=== PATIENT | female | born 1955 | race Caucasian/White ===

== ENCOUNTER 2019-04-25 09:54 | Outpatient (CLI) | payer MEDICARE, MEDICAID, SELFPAY ==
--- NOTE | 2019-04-25 10:00 | MR_ITS ---
WS: [id number] MRI CERVICAL SPINE NONCONTRAST TECHNIQUE: Sagittal T1, T2 and STIR imaging. Axial T2, gradient, and fiesta imaging. CLINICAL INFORMATION: CERVICAL DISC DISORDER WITH MYELOPATHY OF MID CERVICAL REGIO COMPARISON: CT cervical and MRI August 09, 2018 FINDINGS: Images moderately degraded due to motion artifact. Straightening of the normal cervical lordosis. Slight anterolisthesis C4 on C5 measuring 3 mm stable since the recent CT but progressed since the prior MRI August 09, 2018. Disc osteophyte complexes at C 4-C5 C5-C6 and C6-C7 with moderate to severe central canal stenosis. Impingement on the cervical cord at C4-C5 and C5-C6 with impingement and flattening worse at C4-C5. Suggestion of small amount T2 sig nal abnormality in the cervical cord. C2-C3: Osteophytic ridging. Moderate left and mild right bony foraminal narrowing. Spinal canal is pa tent. C3-C4: Mild disc bulging with osteophytic ridging. Severe left and mild right bony foraminal narrowin g. Advanced left facet arthropathy. Spinal canal is patent. C4-C5: Grade 1 anterolisthesis measuring 3 mm. Disc osteophyte complex with severe central canal sten osis. This appears progressed since the prior MRI. Severe bilateral bony foraminal narrowing. This is worse on the left. C5-C6: Disc osteophyte complex with moderate to severe central canal stenosis. Moderate to severe tarah ateral bony foraminal narrowing worse in the left. C6-C7: Disc osteophyte complex with moderate central canal stenosis. Moderate bilateral bony foramina l narrowing. C7-T1: Mild disc bulging. Mild bilateral bony foraminal narrowing. Spinal canal is patent. Small disc protrusions in the upper thoracic spine. Upper thoracic cord appears normal. Visualized brain stem structures: Normal. Prevertebral soft tissues: Normal. MR/MR cervical spin wo con* [id number] IMPRESSION: 1. Images moderately degraded due to motion artifact. 2. Moderate to severe central canal stenosis C4-C5 and C5-C6 with progressive disc desiccation at C4-C5 and anterolisthesis measuring 3 mm. Central canal bisi nosis appears progressed at C4-C5 since the recent myelogram October 07, 2018 3. Central disc osteophyte protrusion C6-C7 with moderate central canal stenos is. 4. Multilevel moderate to severe bony foraminal narrowing at C4-C5 C5-C6 and C 6-C7. 5. Suggestion of a tiny amount of signal abnormality in the cervical cord at C 4-C5.
== END 2019-04-25 09:55 | disposition home or self-care (01) ==
LOC: RADWPI 09:58
PROVIDERS: Family Provider Family Medicine; Visit Provider Licensed Practical Nurse
DX: M50.020 Cervical disc disorder with myelopathy, mid-cervical region, unspecified level (principal); M48.02 Spinal stenosis, cervical region; M50.223 Other cervical disc displacement at C6-C7 level
CPT/HCPCS: 72141

== ENCOUNTER 2019-06-26 12:12 | Inpatient (IN) | payer MEDICARE, MEDICAID, SELFPAY ==
[2019-06-23 13:07] VITALS: BMI 26.9
--- NOTE | 2019-06-23 13:31 | ANES.PREANE2 ---
Pre-Anesthetic Assessment Pre-Anesthetic Assessment: Height/Weight: Height 1.57 m Weight 66.678 kg Preop Diagnosis: Intervertebral disc disorder with myelopathy, mid cervical region Proposed Procedure: Operation Date: 06/26/19 07:00 Proposed Procedures p Anterior Cervical Discectomy&Fusion 66687 M50.020(Not Applicable) - Richard Llanos MD s Poss Corpectomy(Not Applicable) - Richard Llanos MD Familial anesthetic complications: No trouble Social: Social History: Tobacco Packs per day: 0.5 ppd Exam: Pre-Anes Outpt Exam: alert, oriented x 3, clear to auscultation bilaterally and regular rate & rhythm Airway: Cervical ROM: WNL MP: 1 Additional comments: chipped, missing poor dentition Pulmonary: Pulmonary: COPD CV/HEM: CV/HEM: HTN : : None reported Hepatic: Hepatic: None reported GI: GI: GERD Metabolic: Metabolic: DM Musc/skel: Comments: contracted/poor movemetn especially on Right side arm due neck and back - herniated discs Neuropsych: Neuropsych: CVA (X2 16 year ago) Anesthetic Plan: ASA status: 3 Anesthesia: General Risk of > 500 ml blood loss (7ml/kg in children): No PFSH Anesthesia PFSH: Medical History (Updated 06/13/19 @ 13:22 by Richard Llanos MD) Abnormal nuclear stress test Cervical disc disorder with myelopathy of mid-cervical region CHF (congestive heart failure) COPD (chronic obstructive pulmonary disease) CVA (cerebral vascular accident) Edema, peripheral GERD (gastroesophageal reflux disease) History of DVT (deep vein thrombosis) Hypertension Left renal mass Osteoarthritis Spinal stenosis Surgical History (Updated 06/13/19 @ 13:22 by Richard Llanos MD) History of cataract surgery S/P knee replacement Status post cervical spinal fusion Social History (Updated 06/13/19 @ 12:49 by Sari Arroyo LPN) Smoking and tobacco status: current every day smoker Alcohol intake: never Lives independently: No Marital status: / Current occupational status: disabled History of recent travel: No Data Anesthesia Cardiac Studies: No Data to Display
[2019-06-26] VITALS (18 sets, daily range): BP systolic 144–174; BP diastolic 71–92; PULSE 82–109; RESP 16–22; TEMP 36.3–36.9; O2SAT 90–98
[2019-06-26 06:38] LABS: Glucose Point of Care 97 mg/dL (70-110)
--- NOTE | 2019-06-26 06:45 | P.ANESUD_ITS ---
Pre-Anesthetic Update Pre-Anesthetic Assessment: Date of Surgery/Procedure: 06/26/19 Preop Claudia gnosis: Intervertebral disc disorder with myelopathy, mid cervical region Proposed Procedure: Operation Date: 06/26/19 07:00 Proposed Procedures p Anterior Cervical Discectomy&Fusion 98178 M50.020(Not Applicable) - Richard Llanos MD s Poss Corpectomy(Not Applicable) - Richard Llanos MD Any changes to Pre-Anesthetic Assessment?: No Last Intake: Intake Last Liquid Date 06/25/19 Last Liquid Time 21:00 Last Solid Date 06/25/19 Last Solid Time 21:00 Labs Last 48hrs: Laboratory Results - last 48 hr 06/26/19 06:35 POC Glucose 97 Vitals: Temperature 97.4 F L 06/26/19 06:18 Pulse Rate 82 06/26/19 06:18 Pulse Rhythm 06/26/19 06:21 Pulse Strength 3+ Normal 06/26/19 06:21 Respiratory Rate 18 06/26/19 06:18 Blood Pressure 166/80 06/26/19 06:18 Blood Pressure Bridget n 108 06/26/19 06:18 Pulse Oximetry 98 06/26/19 06:18 Oxygen Delivery Me thod 06/26/19 06:21 Exam: Pre-Anes Outpt Exam: alert, oriented x 3, clear to auscultation bilaterally and regular rate & rhythm Other Pertinent Information: Other Pertinent Information: No medications this morning, ran out of her oxybutynin on wednesday. States she is having increased pain. Cardiac Studies: No Data to Display
--- NOTE | 2019-06-26 06:53 | W.PM.OPSUD ---
Surgery/Procedure H&P Update DATE OF PROCEDURE: June 26, 2019 DATE H&P PERFORMED: 06/06/19 H&P UPDATE INFORMATION: I have reviewed H&P completed within last 30 days and H&P is in [facility] EMR on date indicated PREOP DIAGNOSIS: Intervertebral disc disorder with myelopathy, mid cervical region PRIMARY INDICATION FOR PROCEDURE: Pain, cervical myelopathy PLANNED PROCEDURE: Operation Date: 06/26/19 07:00 Proposed Procedures C4-C7 Anterior Cervical Discectomy/Fusion/fixation, possible corpectomy 22936 M50.020(Not Applicable) - Richard Llanos MD
--- NOTE | 2019-06-26 07:04 | SUR.PREOP ---
2544 call to PT and spoke with Myke and stated that no Physical Therapist here yet to fit pt for kristen Jenn blackwood and message given to nurse MURIEL Erickson
--- NOTE | 2019-06-26 07:07 | PM.OP2 ---
 Brief Operative Note: Date of procedure: 06/26/19 Pre-op diagnosis: Intervertebral disc disorder with myelopathy, midcervical Post-op diagnosis: same (with collapse of vertebra and instability of joint) Procedure Done: C5, C6 corpectomy;C4-C7 anterior fusion/fixation Surgeon: Richard Llanos Estimated blood loss (mL): 25 Complications: none Post-op Plan: PACU, then surgical golden Condition: stable Disposition: PACU Coding Level of Care Code Acute Travel Accommodation Inspector for Riley Romero
--- NOTE | 2019-06-26 07:24 | XR_ITS ---
WS: [id number] INTRAOPERATIVE LATERAL CERVICAL SPINE HISTORY: OR PIC COMPARISON: 04/07/2019 Lateral radiograph obtained in the OR with a metallic marker indicating the anterior C4-5 disc level. Patient is intubated. XR/XR cervical spine 1ort [id number] IMPRESSION: Intraoperative planning marker at anterior C4-5 disc level.
--- NOTE | 2019-06-26 08:12 | XR_ITS ---
WS: [id number] INTRAOPERATIVE LATERAL CERVICAL SPINE HISTORY: SURGERY COMPARISON: None available. Lateral radiograph obtained in the OR with a metallic marker indicating the C5-6 disc level. Soft tis nelli spacers are now present. The anterolisthesis by 4 mm. XR/XR cervical spine [facility] [id number] IMPRESSION: Intraoperative planning marker at anterior C5-6 disc level.
[2019-06-26] MEDS: sodium chloride 0.9% 1,000 ML 30 ML IV (09:36)
--- NOTE | 2019-06-26 10:52 | XRR_ITS ---
PROCEDURE INFORMATION: Exam: XR Spine, 1 view; Cervical Exam date and time: 06/26/2019 11:24 AM Age: 64 years old Clinical indication: Condition or disease; Condition/disease: Localization in surgery TECHNIQUE: Imaging protocol: XR of the spine, 1 view. Exam focused on the cervical spine. COMPARISON: CR XR cervical spine [place] [id number] 06/26/2019 8:09 AM FINDINGS: Vertebrae: Interval C5 and C6 vertebral body replacement (appropriately positioned), with C4-C5 and C6-C7 disc grafts (appropriately positioned), and correction of prior C4-C5 anterolisthesis. Anterior hardware placement with C4-C7 metallic plate and C4 and C7 metallic screws. Anterior surgical retractors and in tracheal tube noted. Soft tissues: Prevertebral soft tissue swelling, stable. XR/XR cervical spine [place] [id number] IMPRESSION: Intraoperative radiograph as described.
--- NOTE | 2019-06-26 11:51 | XRR_ITS ---
PROCEDURE INFORMATION: Exam: XR Cervical Spine, 2 Views Exam date and time: 06/26/2019 12:28 PM Age: 64 years old Clinical indication: Condition or disease; Fusion; Cervical region; Prior surgery; Surgery date: Post-operative (0-2 days); Additional info: Ap/lat post op fusion TECHNIQUE: Imaging protocol: XR of the cervical spine, frontal and lateral views. COMPARISON: CR XR cervical spine [place] [id number] 06/26/2019 11:13 AM FINDINGS: Vertebrae: C5 and C6 vertebral body replacement, disc space grafts, and and C4-C7 ACDF plate and screws are stable in position. Vasculature: Bilateral carotid atherosclerotic calcifications. Soft tissues: Decreased prevertebral soft tissue swelling. XR/XR cervical spine 3V* [id number] IMPRESSION: Postoperative changes as above.
--- NOTE | 2019-06-26 12:53 | PM.PACU ---
PACU note Post-Anesthesia Exam: somnolent, arousable and vital signs stable Disposition: admitted
[2019-06-26] MEDS: sodium chlor 0.9% + KCl 20 mEq 20 MEQ/1,000 ML BAG 75 MEQ IV (13:52)
[2019-06-26] MEDS: ketorolac 30 mg/mL INJ 15 MG IVP ×2 (13:55→17:48)
[2019-06-26] MEDS: HYDROcodone-acetaminophen 5-325 mg Tablet PO ×2 (15:19→20:59)
[2019-06-26 17:04] LABS: Glucose Point of Care 140 mg/dL (70-110)
[2019-06-26 17:14] LABS: Glucose Point of Care 164 mg/dL (70-110)
[2019-06-26] MEDS: oxyCODONE 5 mg IR Tab/Cap 10 MG PO ×2 (17:24→21:59)
[2019-06-26] MEDS: duloxetine 60 mg Capsule PO (17:27)
[2019-06-26] MEDS: docusate sodium 100 mg Capsule PO (17:27)
--- NOTE | 2019-06-26 17:37 | P.PN_ITS ---
Subjective Subjective: Interval history: A little better. No new complaints. Vitals/I&O/Wt Last Vital Signs Temp 98.3 F 06/26/19 15:45 Pulse 92 06/26/19 15:45 Resp 18 06/26/19 15:45 BP 159/81 06/26/19 15:45 Pulse Ox 95 06/26/19 15:45 06/26/19 06/26/19 06/26/19 06:59 14:59 22:59 Intake Total 1600 / 1600 Output Total 125 / 125 Balance 1475 / 1475 Physical Exam Const: COMMON NORMALS: no apparent distress GENERAL APPEARANCE: cooperative HENMT: COMMON NORMALS: hearing grossly not normal bilaterally (hard of hearing) Eye: COMMON NORMALS: conjunctivae normal ALIGNMENT: Yes alignment normal CONJUNCTIVA: Yes conjunctivae normal Neck/C-Spine: COMMON NORMALS: supple GENERAL: Yes trachea midline CERVICAL SPINE: Yes collar present Resp: COMMON NORMALS: normal respiratory effort EFFORT & INSPECTION: Yes able to speak in complete sentences, No tachypneic and No stridor Neuro: SPEECH: speech normal MOTOR EXAM: No strength 5/5 throughout (chronic quadraparesis and spasticity) Psych: COMMON NORMALS: speech normal ATTITUDE: Yes engaged ACTIVITY/MOTOR BEHAVIOR: Yes appropriate eye contact SPEECH: Yes normal speech Skin: WOUNDS: Yes surgical site (Left anterolateral neck surgical site dressing with scant serosanguineous drainage. Dressing changed at bedside.) Urinary Catheter Management^: F: Cath Placed During This Visit: yes, but has since been removed by the nurse Urinary Catheter Date of Insertion: 06/26/19 Urinary Catheter Time of Insertion: 07:25 Date Urinary Catheter Removed: 06/26/19 Time Urinary Catheter Discontinued: 11:50 Data Other Xray: I personally reviewed and interpreted this imaging study as follows: (Cervical spine x-rays: Postoperative changes of recent C5/C6 corpectomy with C4-C7 anterior fusion/fixation. No noted complications.) Radiologist's impression: FINDINGS: Vertebrae: C5 and C6 vertebral body replacement, disc space grafts, and and C4-C7 ACDF plate and screws are stable in position. Vasculature: Bilateral carotid atherosclerotic calcifications. Soft tissues: Decreased prevertebral soft tissue swelling. A&P Assessment and plan (1) Cervical disc disorder with myelopathy of mid-cervical region: Patient is doing well after C5/C6 corpectomy with C4-C7 anterior fusion/fixation performed earlier today. She remains with chronic quadriparesis/spasticity, but is reporting some improvement in motor function/dexterity since surgery. Plan completion of perioperative intravenous antibiotic doses, and physical therapy postoperative spine protocol. Up with assist only. Fall precautions. Anticipate discharge home tomorrow. Status: Acute Code(s): M50.020 - Cervical disc disorder with myelopathy, mid-cervical region, unspecified level (2) Status post cervical spinal fusion: Status: Acute Code(s): Z98.1 - Arthrodesis status (3) Collapse of vertebra: Status: Acute Code(s): M48.50XA - Collapsed vertebra, not elsewhere classified, site unspecified, initial encounter for fracture (4) Instability of joint: Status: Acute Code(s): M25.30 - Other instability, unspecified joint Attestations Medical Necessity Statement*: Patient is appropriate for in-hospital manag ement following multilevel anterior cervical fusion and fixation. Coding Level of Care Code Acute Buyers' Agent for [facility] Fwd Exam Comprehensive Diagnoses Cervical disc disorder with myelopathy of mid-cervical region M50.020 Status post cervical spinal fusion Z98.1 Collapse of vertebra M48.50XA Instability of joint M25.30
[2019-06-26] MEDS: baclofen 10 mg Tablet PO (21:00)
--- NOTE | 2019-06-26 21:11 | P.OP_ITS ---
Operative Report Date of procedure: June 26, 2019 Pre-op Diagnosis: Intervertebral disc disorder with myelopathy, mid cervical region Post-op diagnosis: same (with collapse of vertebra and instability of joint) Post-op Diagnosis: Procedure Done: 1. C5 Corpectomy. 2. C6 Corpectomy. 3. C4-C7 anterior cervical plate and screw fixation. 3. C4-C7 placement of intervertebral prosthetic device. 4. C4-C7 anterior cervical fusion utilizing morselized autograft obtained from the corpectomy/osteophytectomy portions of the procedure. Implants: Synthes Vectra plate/screws. Bengal interbody fusion cage. Specimens removed/disposition: C4-C5, C5-C6, C6-C7 disc Surgeon: Richard Llanos Anesthesia: General Estimated blood loss (mL): 25 IV fluids (mL): 1,500 Urine output (mL): 100 Complications: None Condition: stable Disposition: PACU Brief History: The patient is a 64-year-old female with symptomatic, radiographically confirmed cervical disc/joint disease and associated neural impingement. Imaging studies demonstrated dominant abnormalities at C4-C7. She had clinical evidence of progressive cervical myelopathy. Conservative management did not provide lasting symptom relief. After review of the diagnostic and treatment options with the risks/potential benefits/rationale for each, the patient requested to proceed with surgical intervention. Procedure: After routine preoperative evaluation and informed consent were obtained, the patient was taken to the Operating Room and placed under general endotracheal anesthesia. She was positioned supine and fit in the [place] tongs for the application of in-line cervical traction. The anterolateral neck on the left was prepared with hair clippers. A proposed transverse skin incision was marked with a sterile skin marker, utilizing intraoperative radiography and regional anatomy for localization. The area was scrubbed, prepped, and draped with sterile towels and drapes. [place] surgical barrier was applied. The proposed incision site was infiltrated with 1% Xylocaine with Epinephrine. A skin incision was made and carried down into the subcutaneous tissues. The platysma was identified and divided in the direction of its fibers. A plane was dissected just medial to the carotid sheath and lateral to the midline esophagus and trachea. Prevertebral soft tissues were bluntly dissected free of the anterior margin of the cervical spine. Longus coli muscles were freed from their medial attachments. Deep self-retaining retractors were placed. Intraoperative radiography verified the desired surgical levels. The C4-C5, C5-C 6, and C6-C7 interspaces were sequentially incised with a #11 blade. Discectomies were accomplished utilizing various curettes and pituitary rongeurs. Anterior marginal osteophytes were resected with the [place] and [place] rongeurs. Cartilaginous end plates were stripped free with curettes. Posterior marginal osteophytes were resected with thin foot plate Kerrison rongeurs. The medial aspects of the neural foramina were enlarged in a similar manner. Posterior longitudinal ligament was divided and resected as necessary to further the decompression. Due to extensive bony overgrowth of the disc space and marginal osteophyte contribution to neural impingement, the [place] Rodney high- speed drill with myron reg was utilized to complete the osteophytectomy portions of the procedure and for endplate preparation. Residual encroachment posterior to the vertebral bodies and the limited height of the residual vertebral bodies after osteophyte resection prompted conversion to corpectomies at C5 and C6. Corpectomies were completed with the [place] Rodney high speed drill and various rongeurs. Once the decompression was felt to be adequate, the corpectomy defect was sized. A 30 mm lordotic Bengal Cage was chosen. The Cage was packed with morselized autograft obtained from the corpectomy/osteophytectomy portions of the procedure. The Cage was placed within the corpectomy defect while in-line cervical traction was applied via the [place] tongs. The mallet and impaction tools were utilized, and positioning was evaluated with intraoperative radiography. Once the Cage was felt to be in good position, a Synthes Vectra plate of the desired size was chosen. The plate was secured to the C4 and C7 vertebral bodies with bilateral 4.5 mm x 14 mm self-drilling screws. Final screw tightening was performed, and the locking mechanisms within the plate were noted to engage the screws at each site. The construct was inspected and felt to be in good position and secure. The wound was copiously irrigated with sterile saline and antibiotic irrigation. Hemostasis was ensured with the bipolar electrocautery. Wound closure was performed in multiple layers with 2-0 Vicryl Plus simple interrupted closure of the platysma and deep dermis as separate layers. Final skin closure was performed with 4-0 Vicryl Plus in a running subcuticular pattern. Steri-Strips were applied and a sterile dressing was placed. The patient was released from the [facility] and fit in a [place] collar. She was transferred onto the Recovery Room cart in the supine position. She was extubated without in cident. The patient tolerated the procedure well. All sponge, needle, and instrument counts were correct at the completion of the procedure.
[2019-06-26] MEDS: ondansetron 2 mg/ML SDV 2 mL 4 MG IVP (21:23)
[2019-06-26 21:33] LABS: Glucose Point of Care 171 mg/dL (70-110)
--- NOTE | 2019-06-26 22:06 | PC.NURSE ---
2135: Please see physician notification. Patient is not able to get comfortable at all. Is having a lot of anxiety. No pain medications seem to help lower back pain. She states her neck feels fine. All neuro vascular checks have been WNL. Dr. Luque states lower back pain is chronic for her. Patient has been educated on all pain medications being given and has been educated on non-pharmacologic therapies as well.
[2019-06-27] VITALS (7 sets, daily range): BP systolic 129–184; BP diastolic 67–92; PULSE 89–106; RESP 18–20; TEMP 36.5–36.9; O2SAT 90–93
[2019-06-27] MEDS: ketorolac 30 mg/mL INJ 15 MG IVP ×2 (00:05→05:24)
[2019-06-27] MEDS: oxyCODONE 5 mg IR Tab/Cap PO (01:45)
--- NOTE | 2019-06-27 02:26 | PC.NURSE ---
Bladder Scan: Showed >500
--- NOTE | 2019-06-27 02:59 | PC.NURSE ---
Upon reassessment of pain patient is resting with eyes closed and no outward s/s of pain at this time.
--- NOTE | 2019-06-27 03:35 | PC.NURSE ---
Patient has had change of positions all shift. 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 This nurse, aides and bilingual recruiter have changed positions multiple times in which patient is not comfortable for long. Patient keeps stating that everyone is mad at her and we let her know this is not the case we just want her comfortable and we cannot always be in her room to change positions when with other patients. Patient has had multiple pain medications. Every avenue has been tried in attempt to relieve pain and make patient more comfortable with non-pharmacologic and pharmacologic measures and education. Education needs reinforced.
[2019-06-27] MEDS: sodium chlor 0.9% + KCl 20 mEq 20 MEQ/1,000 ML BAG 75 MEQ IV (04:11)
[2019-06-27 06:55] LABS: Glucose Point of Care 125 mg/dL (70-110)
[2019-06-27] MEDS: lidocaine 5% Patch 1 PATCH TOPICAL (08:26)
[2019-06-27] MEDS: oxybutynin 5 mg Tablet 10 MG PO (08:27)
[2019-06-27] MEDS: montelukast sodium 10 mg Tablet PO (08:27)
[2019-06-27] MEDS: lisinopril 20 mg Tablet PO (08:28)
[2019-06-27] MEDS: pantoprazole DR 40 mg Tablet PO (08:28)
[2019-06-27] MEDS: docusate sodium 100 mg Capsule PO (08:28)
[2019-06-27] MEDS: duloxetine 60 mg Capsule PO (08:29)
[2019-06-27] MEDS: amlodipine 5 mg Tablet PO (08:29)
--- NOTE | 2019-06-27 08:41 | PM.DCS ---
Discharge Providers Date of Admission: 06/26/19 12:32 Date of Discharge: June 27, 2019 Attending Provider at Admission: Richard Llanos MD Attending Provider at Discharge: Richard Llanos MD Primary Care Provider: Sari Blankenship DO Diagnoses at Discharge Discharge Diagnosis (1) Cervical disc disorder with myelopathy of mid-cervical region: Status: Acute (2) Collapse of vertebra: Status: Acute (3) Instability of joint: Status: Acute (4) Status post cervical spinal fusion: Status: Acute Reason for Visit Reason for Visit: Reason For Visit: Cervical disc disorder w myelopathy of Mid-Cervica Brief History: The patient is a 64-year-old female with symptomatic, radiographically confirmed cervical disc/joint disease and associated neural impingement. Imaging studies demonstrated dominant abnormalities at C4-C7. She had clinical evidence of progressive cervical myelopathy. Conservative management did not provide lasting symptom relief. After review of the diagnostic and treatment options with the risks/potential benefits/rationale for each, the patient requested to proceed with surgical intervention. Hospital Course Hospital Course: Patient underwent C5/C6 corpectomy with C4-C7 anterior fusion/fixation on 06/26/2019. She tolerated the procedure well. She completed perioperative intravenous antibiotics, and the physical therapy postoperative spine protocol. She noted improvement in preoperative symptoms following surgery. She was voiding and tolerating a diabetic diet prior to discharge home on postoperative day#1. Physical Exam Urinary Catheter Management^: F: Cath Placed During This Visit: yes, but has since been removed by the nurse Urinary Catheter Date of Insertion: 06/26/19 Urinary Catheter Time of Insertion: 07:25 Date Urinary Catheter Removed: 06/26/19 Time Urinary Catheter Discontinued: 11:50 Discharge Data Data Completed and Pending: Completed Studies During Hospitalization Category Date Time Status XR cervical spine 1 view portable [ XR cervical spine Exams 06/26/19 08:12 Completed 1Vport 04094] Rou herve XR cervical spine 1 view portable [ XR cervical spine Exams 06/26/19 10:52 Completed 1Vport 32862] Rou herve XR cervical spine 1Vport 26639 Rout ine Exams 06/26/19 07:24 Completed XR cervical spine 3V* [id number] Routine Exams 06/26/19 11:51 Completed Pathology: Surgic al [PTH] Routine Pth 06/26/19 11:58 Completed Imaging^: Other Xray: Radiologist's impression: FINDINGS: Vertebrae: C5 and C6 vertebral body replacement, disc space grafts, and and C4-C7 ACDF plate and screws are stable in position. Vasculature: Bilateral carotid atherosclerotic calcifications. Soft tissues: Decreased prevertebral soft tissue swelling. Procedures Performed: C5/C6 corpectomy. Placement of intervertebral prosthetic device (Bengal 30 mm lordotic Cage). C4-C7 anterior plate-screw fixation (Synthes Vectra system). C4-C7 anterior fusion utilizing morselized autograft obtained from the osteophytectomy/corpectomy portions of the procedure. Intravenous antibiotics. Physical therapy. Vitals: Last Vital Signs Temp 97.7 F 06/27/19 12:15 Pulse 97 06/27/19 12:15 Resp 20 H 06/27/19 12:15 BP 129/67 06/27/19 12:15 Pulse Ox 93 06/27/19 12:15 Discharge Plan Discharge Patient Disposition: Home, Self-Care Condition: Stable Prescriptions: New Percocet 7.5-325 mg tablet 1 - 2 tab PO Q4H MDD 6 tabs PRN (Reason: pain) Qty: 40 RF: 0 Continued azelastine 137 mcg (0.1 %) aerosol,spray 1 spray INTRANASAL BID RF: 0 lidocaine [Lidoderm] 5 % adhesive patch,medicated 1 patch TOPICAL DAILY RF: 0 levalbuterol tartrate 45 mcg/actuation HFA aerosol inhaler 2 inh INHALATION Q6H RF: 0 oxybutynin chloride 10 mg tablet extended release 24hr 10 mg PO DAILY RF: 0 Trulicity 1.5 mg/0.5 mL pen injector 1 mg SUBCUT .weekly RF: 0 esomeprazole magnesium [Nexium] 40 mg capsule,delayed release(DR/EC) 40 mg PO DAILY RF: 0 montelukast 10 mg tablet 10 mg PO DAILY RF: 0 linagliptin 5 mg tablet 5 mg PO DAILY RF: 0 baclofen 10 mg tablet 10 mg PO TID PRN (Reason: Pain) RF: 0 albuterol sulfate 90 mcg/actuation HFA aerosol inhaler 2 puff INHALATION Q6H RF: 0 ondansetron HCl 4 mg tablet 4 mg PO Q8H RF: 0 amlodipine-benazepril 5-20 mg capsule 1 cap PO DAILY RF: 0 duloxetine [Cymbalta] 60 mg Capsule,Delayed Release(Dr/Ec) 60 mg PO BID RF: 0 Levemir U-100 Insulin 100 unit/mL Solution 40 unit SUBCUT DAILY RF: 0 Held oxycodone 10 mg tablet 10 mg PO Q8H RF: 0 Hold Instructions: Resume on 07/02/19. Hold until finished with Rx provided from hospital. Discharge Orders: Discharge Order (Routine); Ordered 06/27/19 Ordered By: Richard Llanos Other Ambulatory Orders: XR cervical spine 3V* [id number] (Routine) Timeframe: 2 Weeks Facility: [facility] - Location: Radiology [facility] Ordered By: Richard Llanos Referrals: [facility] [Outside] Richard Llanos MD [Physician] - 07/13/19 10:00 am (AP/lateral c-spine x-rays prior to visit.GET EXRAY AT [facility] BEFORE DR APPOINTMENT THAT MORNING) Discharge Diet: Diabetic Discharge Activity: Limit activity as instructed and As per PT/OT instructions Patient Instructions: Oxycodone/Acetaminophen (By mouth), Anterior Posterior Spinal Fusion (DC), Cervical Fracture (DC), Degenerative Disc Disease (DC) Activity Restrictions/Additional Instructions: Activity -Cervical fusion: Wear cervical collar 24 hours a day. Change as necessary for showering, shaving, or if it becomes soiled. -No lifting or reaching overhead. - No driving until office followup visit - No lifting/pushing/pulling over 10 pounds - Avoid twisting or bending - Walking is encouraged - Home exercise per physical therapist - You may engage in sexual intercourse at any time as long as it is comfortable for you - Check with your doctor before returning to work. Notify your doctor if you develop: - temperature of 101.5 degrees F. or higher - redness or swelling of the incision - Foul drainage - increasing pain - increasing numbness or tingling in the arms or legs - New or increasing problems with vision, balance, memory, speaking, nausea or vomiting Hygiene: - Showering is okay - No tub baths or soaking Other: Remove outer bandage 3 days after surgery. If you have paper strips, leave in place until they fall off on their own. If you have stitches, keep your incision dry until the stitches are removed. Your doctor's office is available to answer any questions from 7 AM to 5:00 PM, Wednesday through at [phone]. After hours, go to the emergency room at [facility] or call 911 for assistance. 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
--- NOTE | 2019-06-27 10:20 | ANE.PACU2 ---
 Inpatient post-anesthesia follow up: Airway intact: Yes Vital signs: Temperature 98.0 F Pulse Rate 90 Respiratory Rate 20 Blood Pressure 184/83 Pulse Oximetry 93 Oxygen Delivery Me thod Room Air Oxygen Flow Rate Fraction of Inspir ed Oxygen Hydration adequate: Yes Nausea and vomiting: No Pain level: 1 Mental status: Baseline Additional Comments: sacral pain
[2019-06-27 11:10] LABS: Glucose Point of Care 149 mg/dL (70-110)
== END 2019-06-27 15:00 | disposition home or self-care (01) | DRG 472 ==
LOC: MEDSURG 12:13
PROVIDERS: Admitting Provider Specialist; Family Provider Family Medicine; PCP Family Medicine; Visit Provider Specialist
PROC: 0RB30ZZ Excision of Cervical Vertebral Disc, Open Approach (ICD-10-PCS; CPT 22551; principal; 2019-06-26 07:00)
PROC: 0RG20AJ Fusion of 2 or more Cervical Vertebral Joints with Interbody Fusion Device, Posterior Approach, Anterior Column, Open Approach (ICD-10-PCS; 2019-06-26 07:00)
DX: M50.020 Cervical disc disorder with myelopathy, mid-cervical region, unspecified level (principal); M48.50XA Collapsed vertebra, not elsewhere classified, site unspecified, initial encounter for fracture; I10 Essential (primary) hypertension; J44.9 Chronic obstructive pulmonary disease, unspecified; K21.9 Gastro-esophageal reflux disease without esophagitis; E11.9 Type 2 diabetes mellitus without complications; F17.210 Nicotine dependence, cigarettes, uncomplicated; M25.30 Other instability, unspecified joint; Z79.51 Long term (current) use of inhaled steroids
CPT/HCPCS: 12345; 36416; 51702; 51798; 72020; 72040; 82962; 88304; 96372; 96375; 97161; 97760; C1713; G0378; J0131; J0690; J1100; J1815; J1885; J2001; J2405; J2704; J3010; J3490; J3535; J7030; L0172; L0174

== ENCOUNTER 2019-07-14 08:14 | Outpatient (CLI) | payer MEDICARE, MEDICAID, SELFPAY ==
--- NOTE | 2019-07-14 08:28 | XR_ITS ---
WS: [id number] Cervical spine, 07/14/2019 Clinical Data: Arthrodesis status Comparison: Cervical spine, 06/26/2019. Findings: The anterior cervical disc fusion from C4 through C7 is intact. There are disc fusions and vertebral body replacement items which have not changed from C4 through C7. Bilateral carotid artery calcifications are present. The lung apices are unremarkable. No prevertebral soft tissue swelling is seen. No compression fractures are noted.. XR/XR cervical spine 3V* [id number] Impression: Stable anterior cervical disc fusion C4-C7.
== END 2019-07-14 08:15 | disposition home or self-care (01) ==
LOC: RADWPI 08:19
PROVIDERS: Family Provider Family Medicine; PCP Family Medicine; Visit Provider Licensed Practical Nurse
DX: Z98.1 Arthrodesis status (principal)
CPT/HCPCS: 72040

== ENCOUNTER 2019-09-05 12:57 | Outpatient (CLI) | payer MEDICARE, MEDICAID, SELFPAY ==
--- NOTE | 2019-09-05 13:15 | CT_ITS ---
WS: [id number] CT CERVICAL SPINE HISTORY: s/p cervical spinal fusion TECHNIQUE: Contiguous 2.5 mm axial imaging performed through the entire cervical spine. Sagittal and coronal reformats also performed. All CT scans at [facility] use at least one of these do se optimization techniques: automated exposure control; mA and/or kV adjustment per patient size (inc ludes targeted exams where dose is matched to clinical indication); or iterative reconstruction. DLP: 1630.35 mGycm COMPARISON: MRI 04/25/2019. Anterior cervical fusion from C4 through C7. Partial corpectomies at C5 and C6. Height of the cervica l spine is maintained. Osteophyte extends posterior from the vertebral bodies into the foramina bilat erally. There is a small osteophyte extending posterior from the C7 vertebral body by 2.8 mm encroach ing upon the ventral thecal sac. No lucency around the hardware. C4 anterolisthesis by 4.2 mm with respect to C5. C2-C3: Normal. C3-C4: Moderate bilateral facet joint arthritis, LEFT greater than RIGHT with mild LEFT foraminal bisi nosis. C4-C5: Severe osteophytic ridging. Severe bilateral foraminal stenosis. C5-C6: Marked osteophytic ridging with moderate bilateral foraminal stenosis. C6-C7: Bilateral foraminal stenosis, LEFT greater than RIGHT. Facet joint osteophyte on the LEFT encr oaches upon the LEFT lateral thecal sac. C7-T1: Small osteophytes narrowing the foramen. Soft tissues are normal. Lung apices are clear. CT/CT cervical spin wo con* [id number] IMPRESSION: 1. Status post anterior cervical fusion from C4 to C7 with partial corpectomie s at C5 and C6. 2. Multilevel foraminal stenosis due to osteophyte disease. 3. No adverse postsurgical changes appreciated.
== END 2019-09-05 12:58 | disposition home or self-care (01) ==
LOC: RADWPI 13:01
PROVIDERS: Family Provider Family Medicine; PCP Family Medicine; Visit Provider Licensed Practical Nurse
DX: Z98.1 Arthrodesis status (principal); M43.22 Fusion of spine, cervical region; M48.02 Spinal stenosis, cervical region; M25.78 Osteophyte, vertebrae
CPT/HCPCS: 72125

== ENCOUNTER 2019-10-10 13:51 | Outpatient (CLI) | payer MEDICARE, MEDICAID, SELFPAY ==
--- NOTE | 2019-10-10 13:57 | XR_ITS ---
WS: [id number] CERVICAL SPINE TECHNIQUE: 3 views of the cervical spine CLINICAL INFORMATION: s/p cervical spinal fusion COMPARISON: July 14, 2019 FINDINGS: Straightening of the normal cervical lordosis. Prior postoperative changes ACF C4-C7 with partial cor pectomy at C5-C6. Hardware appears in good position. Alignment is unchanged. Osteopenia. XR/XR cervical spine 3V* [id number] IMPRESSION: Stable postoperative changes ACF C4-C7 with partial corpectomies at C5-C6.
--- NOTE | 2019-10-10 14:00 | CT_ITS ---
WS: [id number] CT CERVICAL SPINE TECHNIQUE: Noncontrast CT of the cervical spine with coronal and sagittal reformatted images. CLINICAL INFORMATION: s/p cervical spinal fusion COMPARISON: September 05, 2019 DLP: 1757.[address] scans at [facility] use at least one of these dose optimization techniques: automat ed exposure control; mA and/or kV adjustment per patient size (includes targeted exams where dose is matched to clinical indication); or iterative reconstruction. FINDINGS: Straightening of the normal cervical lordosis. Postoperative changes C4-C7 with partial corpectomies at C5-C6. Hardware is unchanged in appearance. No evidence of hardware loosening. Osteophytic ridging at C7 with slight effacement of ventral thecal sac is unchanged. C2-C3: Normal. C3-C4: Moderate left and no significant right foraminal narrowing. Mild central canal stenosis. Mild to moderate facet arthropathy. C4-C5: Moderate to severe bilateral bony foraminal narrowing. Osteophytic ridging with mild central c anal stenosis. C5-C6: Partial corpectomy. Moderate bilateral bony foraminal narrowing. Mild central canal stenosis. C6-C7: Partial corpectomy. Moderate left greater than right bony foraminal narrowing. Mild central ca nal stenosis. C7-T1: Posterior osteophytic ridging. Mild central canal stenosis. Mild bilateral bony foraminal narr owing. Visualized posterior nasopharynx: Normal. Prevertebral soft tissues: Normal. CT/CT cervical spin wo con* [id number] IMPRESSION: 1. Straightening of the normal cervical lordosis with anterior cervical fusion C4-C7. Partial corpectomy at C5-C6. 2. No evidence of hardware loosening. Hardware appears in good position. 3. Mild central canal stenosis as described above unchanged. 4. Multilevel bony foraminal narrowing as described above is unchanged. 5. No other significant findings.
== END 2019-10-10 13:52 | disposition home or self-care (01) ==
LOC: RADWPI 13:55
PROVIDERS: Family Provider Family Medicine; PCP Family Medicine; Visit Provider Specialist
DX: Z98.1 Arthrodesis status (principal); M43.22 Fusion of spine, cervical region; M48.02 Spinal stenosis, cervical region
CPT/HCPCS: 72040; 72125

== ENCOUNTER → 2020-06-25 11:34 | Outpatient (BNVA) | payer MEDICARE, MEDICAID, SELFPAY | PROVIDERS: Family Provider Family Medicine; PCP Family Medicine; Visit Provider Orthopaedic Surgery | DX: M48.062 Spinal stenosis, lumbar region with neurogenic claudication (principal) | CPT/HCPCS: 72110 ==

== ENCOUNTER → 2020-07-23 08:16 | Day surgery (SDC) | payer MEDICARE, MEDICAID, SELFPAY | PROVIDERS: Family Provider Family Medicine; PCP Family Medicine; Visit Provider Orthopaedic Surgery | DX: Z01.818 Encounter for other preprocedural examination (principal); Z20.822 Contact with and (suspected) exposure to COVID-19 | CPT/HCPCS: 87635; 93005 ==

== ENCOUNTER → 2020-07-23 09:38 | Outpatient (BNVA) | payer MEDICARE, MEDICAID, SELFPAY | PROVIDERS: Family Provider Family Medicine; PCP Family Medicine; Visit Provider Orthopaedic Surgery | DX: Z01.818 Encounter for other preprocedural examination (principal); Z20.822 Contact with and (suspected) exposure to COVID-19 | CPT/HCPCS: 87635 ==

== ENCOUNTER 2020-07-29 17:45 | Observation (INO) | payer MEDICARE, MEDICAID, SELFPAY ==
--- NOTE | 2020-07-23 11:11 | ECG_ITS ---
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 Measurements Intervals [place] Rate: 65 P: 45 WY: 147 QRS: 8 QRSD: 84 T: 53 QT: 361 QTc: 375 Interpretive Statements SINUS RHYTHM MINIMAL VOLTAGE CRITERIA FOR LVH, CONSIDER NORMAL VARIANT [MEETS CRITERIA IN ONE OF: R(aVL), S(V1), R(V5), R(V5/V6)+S(V1)] Compared to ECG 11/08/2018 10:32:41 No significant changes Electronically Signed On 07-25-2020 21:18:22 CDT by Annika Lockett M.D. [id number]
[2020-07-23 11:33] VITALS: BMI 27.4
--- NOTE | 2020-07-23 12:14 | P.ANESASSM_ITS ---
Pre-Anesthetic Assessment Pre-Anesthetic Assessment: Height/Weight: Height 1.57 m Weight 68.039 kg Preop Diagnosis: L5/S1 Spondylolisthesis, L4/5 lumbar stenosis Proposed Procedure: Operation Date: 07/29/20 08:45 Proposed Procedures p PLIF L4/5/ L5/S1 22177 07599 00319 74202 28008 68226 18432 M47.816 M48.062(Not Applicable) - Sang Aceves, Familial anesthetic complications: none Social: Social History: No tobacco Exam: Pre-Anes Outpt Exam: alert, oriented x 3, clear to auscultation bilaterally and regular rate & rhythm Airway: Cervical ROM: WNL MP: 2 Dentition: Other (multiple missing teeth) Pulmonary: Pulmonary: COPD CV/HEM: CV/HEM: DVT and HTN Metabolic: Metabolic: DM Neuropsych: Neuropsych: CVA and TIA (18 years ago) Anesthetic Plan: ASA status: 4 Anesthesia: General Risk of > 500 ml blood loss (7ml/kg in children): No PFSH Anesthesia PFSH: Medical History Abnormal nuclear stress test Cervical disc disorder with myelopathy of mid-cervical region CHF (congestive heart failure) COPD (chronic obstructive pulmonary disease) CVA (cerebral vascular accident) Edema, peripheral GERD (gastroesophageal reflux disease) History of DVT (deep vein thrombosis) Hypertension Left renal mass Osteoarthritis Spinal stenosis Surgical History History of cataract surgery S/P knee replacement Status post cervical spinal fusion C4-C7 ACDFF, with C5/C6 [place]omies[place] [facility] [place] Family History Other CAD (coronary artery disease) Social History (Updated 07/23/20 @ 11:25 by Frida Ashley) Smoking and tobacco status: current every day smoker cigarettes Packs smoked per day: 0.5 Years cigarettes smoked: 40 Alcohol intake: never Lives independently: No Marital status: / Current occupational status: disabled History of recent travel: No Data Anesthesia Cardiac Studies: No Data to Display
[2020-07-23 12:21] LABS: Basophils # 0.1 10^3/uL (0.0-0.1); Basophils % 0.6 %; Eosinophils # 0.1 10^3/uL (0.0-0.8); Eosinophils % 1.5 %; Hematocrit 46.1 % (37.0-47.0); Hemoglobin 14.8 g/dL (11.5-15.3); Lymphocytes # 3.5 10^3/uL (0.8-4.8); Lymphocytes % 36.7 %; Mean Corpuscular HGB Conc 32.1 g/dL (30.0-36.0); Mean Corpuscular Hemoglobin 30.1 pg (28.0-34.0); Mean Corpuscular Volume 93.9 fL (81-99); Mean Platelet Volume 12.2 fL (7.4-10.4); Monocytes # 1.1 10^3/uL (0.2-0.9); Monocytes % 11.8 %; Neutrophils # 4.63 10^3/uL (1.8-7.7); Nucleated Red Blood Cells % 0 %; Platelet Count 230 10^3/cmm (130-400); Red Blood Count 4.91 10^6/uL (4.1-5.3); Red Cell Distribution Width 12.8 % (12.1-15.1); White Blood Count 9.5 10^3/uL (4.0-10.0)
[2020-07-23 12:45] LABS: Anion Gap 13.4 (5-19); Blood Urea Nitrogen 12 mg/dL (8-23); Calcium 9.4 mg/dL (8.5-10.5); Carbon Dioxide 27 mmol/L (22-29); Chloride 107 mmol/L (98-107); Glucose 94 mg/dL (65-115); Osmolality Calculated 296 mOsm/kg (285-295); Potassium 4.4 mmol/L (3.5-5.1); Sodium 143 mmol/L (136-145)
[2020-07-29] VITALS (18 sets, daily range): BP systolic 118–179; BP diastolic 68–100; PULSE 77–116; RESP 16–97; TEMP 36.2–36.6; O2SAT 69–99
--- NOTE | 2020-07-29 | SCC_ITS ---
Procedure Done: 1. L4/5 Interbody fusion with posterolateral fusion 2. L5/S1 Interbody fusion with posterolateral fusion 3. Instrumentation L4-S1 4. Cage at L4/5 5. Cage L5/S1 6. Laminectomy L4 for decomprsion of nerve 7. Laminotomy L5 for decompression of nerve 8. use of autograft from same incision 9. allograft 10. Bone marrow aspirate from Right iliac crest 19 seconds of fluoroscopic guidance, for a cumulative dose of 37.0 mGy, was provided to Dr. Aceves by the radiology department. C-arm images of the lumbar spine were saved for the patient's permanent record. [facility]
--- NOTE | 2020-07-29 | XR_ITS ---
WS: [id number] C-ARM RADIOGRAPHS SPINE; 2 IMAGES HISTORY: lumbar fusion COMPARISON: None available. Quality of this examination is significantly limited. Intraoperative imaging during spine fusion. XR/XR lumbar spine 1V [id number] IMPRESSION: Intraoperative imaging during spinal fusion.
--- NOTE | 2020-07-29 07:36 | ANES.PREANE2 ---
Pre-Anesthetic Assessment Pre-Anesthetic Assessment: Height/Weight: Height 1.57 m Weight 68.039 kg Temp Pulse Resp BP Pulse Ox 97.9 F 77 20 H 179/87 69 L 07/29/20 07:27 07/29/20 07:27 07/29/20 07:27 07/29/20 07:27 07/29/20 07:27 Preop Diagnosis: L5/S1 Spondylolisthesis, L4/5 lumbar stenosis Proposed Procedure: Operation Date: 07/29/20 08:45 Proposed Procedures p PLIF L4/5/ L5/S1 33849 59422 73080 07681 90561 01956 61565 M47.816 M48.062(Not Applicable) - Sang Aceves, DO Was Beta Nancy taken within 24 hours: N/A Was Clonidine taken within 24 hours: N/A Social: Social History: Tobacco and No alcohol Exam: Pre-Anes Outpt Exam: alert, oriented x 3, clear to auscultation bilaterally and regular rate & rhythm Airway: Submandibular: WNL Cervical ROM: WNL MP: 1 Dentition: False Pulmonary: Pulmonary: COPD CV/HEM: CV/HEM: HTN : : None reported Hepatic: Hepatic: None reported GI: GI: None reported Metabolic: Metabolic: DM and Hyperlipidemia Musc/skel: Musc/skel: None reported Neuropsych: Neuropsych: Depression Anesthetic Plan: ASA status: 3 Anesthesia: General PFSH Anesthesia PFSH: Medical History Abnormal nuclear stress test Cervical disc disorder with myelopathy of mid-cervical region CHF (congestive heart failure) COPD (chronic obstructive pulmonary disease) CVA (cerebral vascular accident) Edema, peripheral GERD (gastroesophageal reflux disease) History of DVT (deep vein thrombosis) Hypertension Left renal mass Osteoarthritis Spinal stenosis Surgical History History of cataract surgery S/P knee replacement Status post cervical spinal fusion C4-C7 ACDFF, with C5/C[place] [facility] [place] Family History Other CAD (coronary artery disease) Social History (Updated 07/23/20 @ 11:25 by Frida Ashley) Smoking and tobacco status: current every day smoker cigarettes Packs smoked per day: 0.5 Years cigarettes smoked: 40 Alcohol intake: never Lives independently: No Marital status: / Current occupational status: disabled History of recent travel: No Data Anesthesia CBC & Chem 7: 07/23/20 12:09 07/23/20 01:20 Cardiac Studies: No Data to Display
[2020-07-29 07:43] LABS: Glucose Point of Care 100 mg/dL (70-110)
[2020-07-29] MEDS: sodium chloride 0.9% 1,000 ML 30 ML IV (07:44)
--- NOTE | 2020-07-29 10:54 | PM.HP ---
Providers/Chief Complaint Primary Care Provider: Sari Blankenship DO Chief Complaint: Lumbar spondylosis History of Present Illness Sari Rojas is a 65 year old female low back pain. She is using a wheelchair at this visit. She states is only able to stand for transfers and short periods. Chief Complaint: low back pain Onset: years Duration: yers Characteristics: ache, stiff Severity: 01/26 Location: low back pain Radiating symptoms: lower extremiety Aggravating factors: cold, increased activity Alleviating factors: sleeping in a recliner Neuro deficits: denies numbness, tingling, incontinence of bowel/bladder, saddle anesthesia. Prior tx: Cortisone injection by primary Review of Systems Narrative: Const: Denies: fever(s) or chills Card: Denies: chest pain or dyspnea on exertion Resp: Denies: dyspnea, productive cough or wheezing GI: Denies: abdominal pain, nausea or vomiting : Denies: difficulty voiding Musc: Reports: joint pain, joint swelling and limited range of motion Skin/Breast: Denies: changes in skin color or dry skin Neuro: Denies: numbness in extremities or weakness in extremities Psych: Denies: anxiety Homer/Lymph: Denies: easy bruising or easy bleeding Medications/Allergies Home Medications Medication Instructions Recorded Confirmed Last Taken Type albuterol sulfate 90 mcg/actuation 2 puff INHALATION Q6H 06/06/19 07/29/20 07/28/20 History aerosol inhaler amlodipine 5 mg-benazepril 20 mg 1 cap PO DAILY 06/06/19 07/29/20 07/28/20 History capsule azelastine 137 mcg (0.1 %) nasal 1 spray INTRANASAL BID 06/06/19 07/29/20 07/28/20 History spray aerosol baclofen 10 mg tablet 10 mg PO TID PRN 06/06/19 07/29/20 07/28/20 History dulaglutide 1.5 mg/0.5 mL 1 mg SUBCUT .weekly ml 06/06/19 07/29/20 07/22/20 History subcutaneous pen injector esomeprazole magnesium 40 mg 40 mg PO DAILY 06/06/19 07/29/20 07/28/20 History capsule,delayed release lidocaine 5 % topical patch 1 patch TOPICAL DAILY 06/06/19 07/29/20 07/28/20 History linagliptin 5 mg tablet 5 mg PO DAILY 06/06/19 07/29/20 07/28/20 History montelukast 10 mg tablet 10 mg PO DAILY 06/06/19 07/29/20 07/28/20 History ondansetron HCl 4 mg tablet 4 mg PO Q8H 06/06/19 07/29/20 07/23/20 History oxybutynin chloride 10 mg 10 mg PO DAILY 06/06/19 07/29/20 07/28/20 History tablet,extended release 24 hr oxycodone 10 mg tablet 10 mg PO Q8H 06/06/19 07/29/20 07/28/20 History Levemir U-100 Insulin 40 unit SUBCUT DAILY PRN 06/23/19 07/29/20 07/08/20 History duloxetine [Cymbalta] 60 mg PO BID 06/23/19 07/29/20 07/28/20 History E0748 Bone growth stimulator #1 ea 06/26/20 06/26/20 Unknown Rx Allergies Allergy/AdvReac Type Severity Reaction Status Date / Time Iodinated Contrast Media Allergy Unknown unknown Verified 07/23/20 11:25 PFSH Acute PFSH: Medical History Abnormal nuclear stress test Cervical disc disorder with myelopathy of mid-cervical region CHF (congestive heart failure) COPD (chronic obstructive pulmonary disease) CVA (cerebral vascular accident) Edema, peripheral GERD (gastroesophageal reflux disease) History of DVT (deep vein thrombosis) Hypertension Left renal mass Osteoarthritis Spinal stenosis Surgical History History of cataract surgery S/P knee replacement Status post cervical spinal fusion C4-C7 ACDFF, with C5/C6 [place]pectomies, [place] [facility] [place] Family History Other CAD (coronary artery disease) Social History (Updated 07/23/20 @ 11:25 by Frida Ashley) Smoking and tobacco status: current every day smoker cigarettes Packs smoked per day: 0.5 Years cigarettes smoked: 40 Alcohol intake: never Lives independently: No Marital status: / Current occupational status: disabled History of recent travel: No Vitals/I&O/Wt Last Vital Signs Temp 97.9 F 07/29/20 07:27 Pulse 77 07/29/20 07:27 Resp 20 H 07/29/20 07:27 BP 179/87 07/29/20 07:27 Pulse Ox 69 L 07/29/20 07:27 Physical Exam Narrative: EXAM NARRATIVE: EXAM NARRATIVE: CONSTITUTIONAL: The patient is a normal appearing 65 year old female in no apparent distress. GENERAL: Patient in no acute distress. CARDIAC: Regular rate and rhythm. CHEST: Normal inspiratory effort, normal respiratory rate. ABDOMEN: Soft and nontender. SKIN: Clear, warm and intact. NEURO?PSYCH: The patient is alert and oriented to person, place and time. Sensorv /SILT Motor StrengthShoulder abduction C5 5/5Wrist extension C6 5/5Elbow extension C7 5/5Hand [employer] C8 5/5Finger abduction T15/5 Radial/ Ulnar/ Median n intact LowerSensory (SILT)Motor StrengthHin flexion L2/3Ant/inner thigh 5/5Hip adduction L2/3 5/5Knee extension L4 Lat thigh, 5/5Toe dorsiflexion L5 5/5Ankle dorsiflexion L5/ E91Rorkocw flexion S1 5/5 DTRBleeps 2+Triceps 2+Brachioradialis 2+Patellar 2+Achilles 2+ MUSCULOSKELETAL: [] UPPEREXTREMITIES: The patient had full active ROM in fingers, wrist, elbow, and shoulder. The patient demonstrated ability to fully flex/extend/abduct/adduct fingers, make ok sign, cross 2nd/3rd digits, extend 1st digit fully.. Radial pulse 2+, CR<2 seconds. LOWER EXTREMITIES: Pt has full, active ROM of toes, ankle, knee, and hip. Dorsalis pedis/posterior tibialis pulses 2+, CR<2 seconds. Data : 07/23/20 12:09 07/23/20 01:20 A&P Assessment and plan (1) Lumbar stenosis with neurogenic claudication: L4/5 L5/S1 PLIF today Status: Acute Attestations Medical Necessity Statement*: failed conservative treatment Coding Level of Care Code Acute Cardiology Technician for [facility] Nick Diagnoses Lumbar stenosis with neurogenic claudication M48.062
--- NOTE | 2020-07-29 10:58 | P.HPUD_ITS ---
Surgery/Procedure H&P Update DATE OF PROCEDURE: July 29, 2020 DATE H&P PERFORMED: 07/29/20 PREOP DIAGNOSIS: L5/S1 Spondylolisthesis, L4/5 lumbar stenosis PLANNED PROCEDURE: Operation Date: 07/29/20 08:45 Proposed Procedures p PLIF L4/5/ L5/S1 [id number] M47.816 M48.062(Not Applicable) - Sang Aceves, DO
--- NOTE | 2020-07-29 10:58 | W.PM.OPSUD ---
Surgery/Procedure H&P Update DATE OF PROCEDURE: July 29, 2020 DATE H&P PERFORMED: 07/29/20 PREOP DIAGNOSIS: L5/S1 Spondylolisthesis, L4/5 lumbar stenosis PLANNED PROCEDURE: Operation Date: 07/29/20 08:45 Proposed Procedures p PLIF L4/5/ L5/S1 [id number] [id number] [id number] M47.816 M48.062(Not Applicable) - Sang Aceves, DO
[2020-07-29] MEDS: fentaNYL 50 mcg/mL INJ 2mL IVP (12:33)
[2020-07-29] MEDS: heparin, porcine 1,000 unit/mL INJ 10 mL 10000 UNIT (13:23)
[2020-07-29 15:34] LABS: Glucose Point of Care 108 mg/dL (70-110)
[2020-07-29] MEDS: HYDROmorphone 1 mg/mL INJ 1 mL 0.5 MG IVP ×2 (17:00→17:10)
--- NOTE | 2020-07-29 17:04 | P.OP_ITS ---
Operative Report Date of procedure: July 29, 2020 Pre-op Diagnosis: L5/S1 Spondylolisthesis, L4/5 lumbar stenosis Post-op diagnosis: same Procedure Done: 1. L4/5 Interbody fusion with posterolateral fusion 2. L5/S1 Interbody fusion with posterolateral fusion 3. Instrumentation L4-S1 4. Cage at L4/5 5. Cage L5/S1 6. Laminectomy L4 for decomprsion of nerve 7. Laminotomy L5 for decompression of nerve 8. use of autograft from same incision 9. allograft 10. Bone marrow aspirate from Right iliac crest Surgeon: Sang Aceves Anesthesia: General Estimated blood loss (mL): 100 Condition: stable Disposition: PACU Procedure: Patient is brought to the operative suite. After undergoing anesthesia, the patient had neuro monitoring attached. Patient was then placed in the prone position on the Cesar table. All areas of impingement were well- padded. Patient was then prepped and draped in the normal sterile fashion. Skin incision was then made over the L4-S1 space. Subperiosteal dissection was made out to the transverse processes of L4 and S1. Once the exposure was complete attention was then brought to placing the pedicle screws. Prior to placing the pedicle screws the [employer] bone marrow aspirate kit was used to aspirate bone marrow aspirate. This was done by using the sharp probe to open up the bone. Aspiration was performed and then the blunt probe was then used to dissect down to through the bone tunnel. An aspirating well drawn back a millimeter approximately 20 cc of bone marrow aspirate was used. Admixed with the allograft and autograft bone that will be used. The technique for placing the pedicle screws was to use a drill followed by the gearshift probe. Followed by the ball probe to feel the superior inferior medial lateral preston of the pedicles. Then placement of the screws. Was done at each pedicle. Screws were placed at L4 bilaterally and L5 and S1 bilaterally. Next attention was brought to performing the laminectomy ofL4. This was done using the high-speed bur Kerrisons and curettes. Once the lamina was removed and then attention was brought to performing a partial facetectomy on the contralateral side. This was done again using the high-speed bur curettes and Kerrisons. The ligamentum flavum was taken down bilaterally from L4 to L5. Attention was then brought to the facet on the ipsilateral side. The facet was taken down. The L5 nerve was decompressed as it passed around the L5 pedicle. The laminectomy was done for purposes of decompressing the nerve as well as placement of the cage. The L4 nerve was identified as it traversed through the L4/5 foramen. The thecal sac was identified and retracted. The L4/5 disc base was identified. Using a knife the disc base was opened. And then sequential marleni were placed. The first shaver was a 6 and the last shaver was a 10. Using a pituitary and down going curette the endplates were scraped and disc material was removed from the space. Once adequate decompression of the disc base was felt to be had. Osteoamp sponge was packed into the anterior aspect of the disc base. Then a size 10 cage from [employer] was placed after packing osteoamp into the cage. While placing the cage the thecal sac and L5 nerve was protected. C arm was used to ensure that the cages placed in the appropriate position. Next attention was brought to performing the laminectomy ofL5. This was done using the high-speed bur Kerrisons and curettes. Once the lamina was removed and then attention was brought to performing a partial facetectomy on the contralateral side. This was done again using the high-speed bur curettes and Kerrisons. The ligamentum flavum was taken down bilaterally from L5 to S1. Attention was then brought to the facet on the ipsilateral side. The facet was taken down. The S1 nerve was decompressed as it passed around the S1 pedicle. The laminectomy was done for purposes of decompressing the nerve as well as placement of the cage. The L5 nerve was identified as it traversed through the L4/5 foramen. The thecal sac was identified and retracted. The L5/S1 disc base was identified. Using a knife the disc base was opened. And then sequential marleni were placed. The first shaver was a 6 and the last shaver was a 7. U sing a pituitary and down going curette the endplates were scraped and disc material was removed from the space. Once adequate decompression of the disc base was felt to be had. Osteoamp sponge was packed into the anterior aspect of the disc base. Then a size 7 cage from [employer] was placed after packing osteoamp into the cage. While placing the cage the thecal sac and L5 nerve was protected. C arm was used to ensure that the cages placed in the appropriate position. Attention was then brought to attaching the rods to the screws placed in the L4- S1 bilaterally. Caps were torqued into position. Locking the construct in place. Wound was copiously irrigated and then attention was brought to decorticating the facets and transverse processes laterally. Bone that was taken down from the lamina was used along with osteoamp fibers and sponges were packed into the lateral gutters along the facet joints. This was done bilaterally. Wound was then closed in a layered fashion starting with the thoracolumbar fascia. Sttatafic 0 was used the sub cutaneous tissue was closed with 2-0 Stratafix and skin with nylon . Patient was then placed in the supine position. The endotracheal tube was removed and patient was transferred to the PACU in stable condition.
--- NOTE | 2020-07-29 17:26 | ANE.PACU2 ---
Inpatient post-anesthesia follow up: Airway intact: Yes Vital signs: Temperature 97.2 F Pulse Rate 97 Respiratory Rate 18 Blood Pressure 127/79 Pulse Oximetry 94 Oxygen Delivery Me thod Room Air Oxygen Flow Rate 8 Fraction of Inspir ed Oxygen Hydration adequate: Yes Nausea and vomiting: No Pain level: 3 Mental status: Baseline
[2020-07-29] MEDS: morphine 4 mg/mL SDV 1 mL 2 MG IVP ×2 (18:09→22:29)
--- NOTE | 2020-07-29 18:11 | PM.CONSULT ---
Providers/Reason For Consult Consulting Physican/Specialty*: Frase/Hospitalist Reason for Consult*: COPD, CHF, prior CVA, DM Attending Physician: Sang Aceves DO Primary Care Provider: Sari Blankenship DO History of Present Illness History of Present Illness Sari Rojas is a 65 year old female status post surgical intervention today by Dr. Aceves as outlined below. She has medical issues as described and hospitalist were consulted to assist with management of these medical issues including diabetes, CHF, COPD. Patient is complaining of pain in her back and wanting to be moved. She tries to meditate to control pain. While she is not ignoring me she is not at a place that she can really answer much in the way of questions currently. Nursing staff are working on clarifying her activity instructions postoperatively to discern if we can get her sitting up. She did deny chest pain. She is moderating her breathing as a means of controlling her pain but denies trouble breathing acutely. She denied history of heart failure. Her diabetes has been okay. She did well surgically. Perioperative blood loss reported around 100 cc. She has had previous back surgeries. Review of Systems General: Reports: Other (Review of systems currently unobtainable secondary to pain postoperatively) Meds/Allergies Home Medications and Allergies Home Medications Medication Instructions Recorded Confirmed Last Taken Type albuterol sulfate 90 mcg/actuation 2 puff INHALATION Q6H 06/06/19 07/29/20 07/28/20 History aerosol inhaler amlodipine 5 mg-benazepril 20 mg 1 cap PO DAILY 06/06/19 07/29/20 07/28/20 History capsule azelastine 137 mcg (0.1 %) nasal 1 spray INTRANASAL BID 06/06/19 07/29/20 07/28/20 History spray aerosol baclofen 10 mg tablet 10 mg PO TID PRN 06/06/19 07/29/20 07/28/20 History dulaglutide 1.5 mg/0.5 mL 1 mg SUBCUT .weekly ml 06/06/19 07/29/20 07/22/20 History subcutaneous pen injector esomeprazole magnesium 40 mg 40 mg PO DAILY 06/06/19 07/29/20 07/28/20 History capsule,delayed release lidocaine 5 % topical patch 1 patch TOPICAL DAILY 06/06/19 07/29/2021 History linagliptin 5 mg tablet 5 mg PO DAILY 06/06/19 07/29/20 07/28/20 History montelukast 10 mg tablet 10 mg PO DAILY 06/06/19 07/29/20 07/28/20 History ondansetron HCl 4 mg tablet 4 mg PO Q8H 06/06/19 07/29/20 07/23/20 History oxybutynin chloride 10 mg 10 mg PO DAILY 06/06/19 07/29/20 07/28/20 History tablet,extended release 24 hr oxycodone 10 mg tablet 10 mg PO Q8H 06/06/19 07/29/20 07/28/20 History Levemir U-100 Insulin 40 unit SUBCUT DAILY PRN 06/23/19 07/29/20 07/08/20 History duloxetine [Cymbalta] 60 mg PO BID 06/23/19 07/29/20 07/28/20 History [id number] Bone growth stimulator #1 ea 06/26/20 06/26/20 Unknown Rx Allergies Allergy/AdvReac Type Severity Reaction Status Date / Time Iodinated Contrast Media Allergy Unknown unknown Verified 07/23/20 11:25 PFSH Acute PFSH: Medical History (Updated 07/30/20 @ 01:30 by Cece Miller MD) Abnormal nuclear stress test (~05/2019) Cervical disc disorder with myelopathy of mid-cervical region CHF (congestive heart failure) Echocardiogram in February 2019 showed an ejection fraction of 60% with no regional wall motion abnormalities though there was grade 1/4 diastolic dysfunction COPD (chronic obstructive pulmonary disease) CVA (cerebral vascular accident) Diabetes mellitus, type II GERD (gastroesophageal reflux disease) History of DVT (deep vein thrombosis) Hypertension Left renal mass Osteoarthritis Spinal stenosis Surgical History (Updated 07/30/20 @ 01:27 by Cece Miller MD) History of cataract surgery S/P knee replacement Status post cervical spinal fusion (06/26/19) C4-C7 ACDFF, with C5/C6 corpectomies, [facility]. Status post lumbar surgery (07/29/20) 1. L4/5 Interbody fusion with posterolateral fusion 2. L5/S1 Interbody fusion with posterolateral fusion 3. Instrumentation L4-S1 4. Cage at L4/5 5. Cage L5/S1 6. Laminectomy L4 for decomprsion of nerve 7. Laminotomy L5 for decompression of nerve 8. use of autograft from same incision 9. allograft 10. Bone marrow aspirate from Right iliac crest Family History Other CAD (coronary artery disease) Social History Smoking and tobacco status: current every day smoker cigarettes Packs smoked per day: 0.5 Years cigarettes smoked: 40 Alcohol intake: never Lives independently: No Marital status: / Current occupational status: disabled History of recent travel: No Vitals/I&O/Wt Last Vital Signs Temp 97.6 F 07/29/20 17:30 Pulse 92 07/29/20 17:30 Resp 18 07/29/20 17:30 BP 122/70 07/29/20 17:30 Pulse Ox 94 07/29/20 17:30 07/29/20 07/29/20 07/29/20 06:59 14:59 22:59 Intake Total 1050 / 1050 500 / 1550 Output Total 100 / 100 Balance 1050 / 1050 400 / 1450 Physical Exam Narrative: EXAM NARRATIVE: Patient seen lying in bed primarily on her right side. She is uncomfortable due to pain. Her face is puffy and including some periorbital edema bilaterally more so on the left than on the right. I suspect this is related to having been on the table for back surgery. Neck is movement limited by prior surgery. Pupils are reactive bilaterally, oropharynx with dry mucous membranes, nasopharynx is clear. Lungs are clear to auscultation bilaterally. Cardiovascular exam reveals a regular rate and rhythm. Binder is on her trunk postoperatively and is clean presently. No rash noted underneath the breast. Moralez catheter is in place and there is what looks to be some erythema in the groin but I am unable to fully evaluate currently due to pain. Skin is dry in the distal extremities. Puffy but no pitting edema. She can move toes and squeeze hands. Speech is clear. Urinary Catheter Management^: Moralez: Cath Placed During This Visit: yes Urinary Catheter Date of Insertion: 07/29/20 Urinary Catheter Time of Insertion: 12:45 A&P Assessment and plan (1) Status post lumbar surgery: Postop day 0 1. L4/5 Interbody fusion with posterolateral fusion 2. L5/S1 Interbody fusion with posterolateral fusion 3. Instrumentation L4-S1 4. Cage at L4/5 5. Cage L5/S1 6. Laminectomy L4 for decomprsion of nerve 7. Laminotomy L5 for decompression of nerve 8. Use of autograft from same incision 9. Allograft 10. Bone marrow aspirate from Right iliac crest Status: Acute (2) Diabetes mellitus, type II: Status: Chronic (3) COPD (chronic obstructive pulmonary disease): Status: Chronic (4) CHF (congestive heart failure): Patient denies a history of this but with evidence of diastolic dysfunction, grade 1, ejection fraction was 60% Status: Chronic (5) History of DVT (deep vein thrombosis): Status: Chronic (6) Hypertension: Status: Chronic Qualifiers: Hypertension type: essential hypertension Qualified Code(s): I10 - Essential (primary) hypertension (7) GERD (gastroesophageal reflux disease): Status: Chronic Additional A&P Information Agree with current medications Adjusted insulin dosages and added sliding scale Lovenox and SCDs are ordered for DVT prophylaxis Dissipate discontinuation of Moralez catheter tomorrow At baseline patient uses a wheelchair due to balance issues and does not walk very much Pain control with usual home medications and additional medicines as needed Home amlodipine and lisinopril Continue home Cymbalta and oxybutynin Other medications as ordered We will follow along while patient is here and address acute medical issues should they arise Thank you very much for consultation Consult Attestations Medical Necessity Statement: As per attending physician Coding Level of Care Code Acute Enterprise Services Manager for [facility] Romero Diagnoses Status post lumbar surgery Z98.890 Diabetes mellitus, type II E11.9 COPD (chronic obstructive pulmonary disease) J44.9 CHF (congestive heart failure) I50.9 History of DVT (deep vein thrombosis) Z86.718 Hypertension I10 Hypertension type: essential hypertension GERD (gastroesophageal reflux disease) K21.9
[2020-07-29] MEDS: docusate sodium 100 mg Capsule PO (19:25)
[2020-07-29] MEDS: duloxetine 60 mg Capsule PO (19:25)
[2020-07-29] MEDS: oxyCODONE 5 mg IR Tab/Cap 10 MG PO (19:26)
[2020-07-29] MEDS: baclofen 10 mg Tablet PO (22:29)
[2020-07-29] MEDS: ketorolac 30 mg/mL INJ IVP (23:32)
[2020-07-29] MEDS: ondansetron 2 mg/ML SDV 2 mL 4 MG IVP (23:38)
[2020-07-30] VITALS (7 sets, daily range): BP systolic 159–180; BP diastolic 71–79; PULSE 96–107; RESP 16–18; TEMP 36.4–36.7; O2SAT 92–94
[2020-07-30] MEDS: morphine 4 mg/mL SDV 1 mL 2 MG IVP ×2 (02:19→06:57)
[2020-07-30] MEDS: oxyCODONE 5 mg IR Tab/Cap 10 MG PO ×2 (04:08→11:53)
[2020-07-30] MEDS: enoxaparin 40 mg/0.4 mL Syringe SUBCUT (05:54)
[2020-07-30 06:37] LABS: Glucose Point of Care 131 mg/dL (70-110)
[2020-07-30] MEDS: pantoprazole DR 40 mg Tablet PO (08:31)
[2020-07-30] MEDS: duloxetine 60 mg Capsule PO (08:31)
[2020-07-30] MEDS: montelukast sodium 10 mg Tablet PO (08:31)
[2020-07-30] MEDS: amlodipine 5 mg Tablet PO (08:31)
[2020-07-30] MEDS: lidocaine 5% Patch 1 PATCH TOPICAL (08:31)
[2020-07-30] MEDS: lisinopril 20 mg Tablet PO (08:31)
[2020-07-30] MEDS: oxybutynin chloride XL 5 MG TABLET 10 MG PO (08:36)
--- NOTE | 2020-07-30 09:37 | PM.PN ---
Subjective Subjective: Interval history: Patient seen this morning pain seem to be controlled. At this point she has not gotten out of bed she has been up to the side of bed sitting. Vitals/I&O/Wt Last Vital Signs Temp 97.5 F L 07/30/20 05:14 Pulse 107 H 07/30/20 05:14 Resp 18 07/30/20 06:57 BP 180/71 07/30/20 05:14 Pulse Ox 93 07/30/20 05:14 07/29/20 07/30/20 07/30/20 22:59 06:59 14:59 Intake Total 610 / 1660 110 / 1770 Output Total 100 / 100 100 / 200 Balance 510 / 1560 10 / 1570 Physical Exam Narrative: EXAM NARRATIVE: She is moving air extremities sensation and strength appear to be intact. Urinary Catheter Management^: Moralez: Cath Placed During This Visit: yes Reason for Continuing Indwelling Catheter: Accurate Measurement of Urinary Output in Critically Ill Patients Urinary Catheter Date of Insertion: 07/29/20 Urinary Catheter Time of Insertion: 12:45 Data : 07/23/20 12:09 07/23/20 01:20 A&P Assessment and plan (1) Status post lumbar surgery: This point she is postop day 1 from a two-level posterior lumbar interbody fusion. I am okay with her leaving today if she has help at home and she does okay with physical therapy and her pain is controlled. Status: Acute Attestations Medical Necessity Statement*: Based on how she does with physical therapy and medically she can be discharged from my standpoint. Coding Level of Care Code Acute Bankruptcy Law Specialist for Riley Romero Diagnoses Status post lumbar surgery Z98.890
[2020-07-30 10:35] LABS: Glucose Point of Care 129 mg/dL (70-110)
--- NOTE | 2020-07-30 11:04 | PC.CHAP ---
Pastoral Care Encounter/Spiritual Assessment Type of Contact [] Declined environmental health and safety intern visit [] Patient/Family/Request visit [] Outpatient visit [] Follow-up visit [] Physician referral [] Code/Alert [x] Routine visit [] Staff referral [] Actively dying [x] Patient sleeping [] Family support [] [] Out of room [] Palliative care [] [] Receiving care in room [] Pre-surgical visit [] Trauma [] Long length of stay [] ICU visit [] Other: Relational/Emotional Strength [] Patient feels connected with others/family/visitors/staff [] Distress [] Loneliness/isolation [] Abandonment Spirituality of Patient [] Person of Shavon [] Attends Roman Catholic of their Shavon [] Believes in Prayer [] Reads Bible or Rastafari materials [] There are Spiritual issues to be addressed Flooring Helper Interventions [] Prayer [] Active listening [] Non-anxious presence [] Spiritual/emotional support [] Crisis/trauma care [] Spiritual counseling [] Bereavement support [] Provided bereavement packet [] Provided Bible/devotional materials [] Provided toy/stuffed animal, coloring book to patient or family member [] Provided Communion [] Anointing/Bryan [] Salvation [] Completed spiritual assessment [] Other: Impact on Illness or Injury [] Angry [] Fearful [] Anxious [] Often cries [] Exhaustion [] Unable to work [] Unable to attend taoist [] Unable to walk/stand [] Unable to read [] Unable to drive [] Unable to eat/drink [] Unable to sleep [] Unable to be with family [] Patient intubated [] Other: Summary Time spent with patient
[2020-07-30] MEDS: nystatin powder 15 gm Btl 1 APPLIC TOPICAL (11:52)
--- NOTE | 2020-07-30 13:13 | PM.PN ---
Subjective Subjective: Interval history: Patient complaining of pain in her back. She is not able to discern if it is better worse or about the same since prior to surgery. She still has catheter in. Denies any problems with breathing, chest pain, GI symptoms. She is stable for discharge from orthopedic standpoint. Blood pressures are a bit high but not surprising with pain. Other vital signs are stable. I see no contraindication to proceeding with discharge and continuing usual home medications. Complained of rash in her groin. Did not see anything there. Encouraged her to let nursing take out catheter and to work with physical therapy. Vitals/I&O/Wt Last Vital Signs Temp 98.0 F 07/30/20 12:00 Pulse 98 07/30/20 12:00 Resp 18 07/30/20 12:00 BP 160/79 07/30/20 12:00 Pulse Ox 92 07/30/20 12:00 07/29/20 07/30/20 07/30/20 22:59 06:59 14:59 Intake Total 610 / 1660 110 / 1770 50 / 50 Output Total 100 / 100 100 / 200 75 / 75 Balance 510 / 1560 10 / 1570 -25 / -25 Physical Exam Narrative: EXAM NARRATIVE: No acute distress, chronic ill appearance, decreased edema in the face, scattered wheeze, regular rhythm, moves both feet but hurts almost anywhere you touch her. She can be cantankerous but if you give her some time you can get along with her. Urinary Catheter Management^: Moralez: Cath Placed During This Visit: yes, but has since been removed by the nurse Reason for Continuing Indwelling Catheter: Decision to DC Catheter Urinary Catheter Date of Insertion: 07/29/20 Urinary Catheter Time of Insertion: 12:45 Date Urinary Catheter Removed: 07/30/20 Time Urinary Catheter Discontinued: 11:00 Data : 07/23/20 12:09 07/23/20 01:20 A&P Assessment and plan (1) Status post lumbar surgery: Postop day 0 1. L4/5 Interbody fusion with posterolateral fusion 2. L5/S1 Interbody fusion with posterolateral fusion 3. Instrumentation L4-S1 4. Cage at L4/5 5. Cage L5/S1 6. Laminectomy L4 for decomprsion of nerve 7. Laminotomy L5 for decompression of nerve 8. Use of autograft from same incision 9. Allograft 10. Bone marrow aspirate from Right iliac crest Status: Acute (2) Diabetes mellitus, type II: Status: Chronic (3) COPD (chronic obstructive pulmonary disease): Status: Chronic (4) CHF (congestive heart failure): Patient denies a history of this but with evidence of diastolic dysfunction, grade 1, ejection fraction was 60% Status: Chronic (5) History of DVT (deep vein thrombosis): Status: Chronic (6) Hypertension: Status: Chronic Qualifiers: Hypertension type: essential hypertension Qualified Code(s): I10 - Essential (primary) hypertension (7) GERD (gastroesophageal reflux disease): Status: Chronic Additional A&P Information No contraindication to planned discharge today Attestations Medical Necessity Statement*: discharge today per ortho Coding Level of Care Code Acute Lockstitch Pocket Setter for [facility] Fwd Diagnoses Status post lumbar surgery Z98.890 Diabetes mellitus, type II E11.9 COPD (chronic obstructive pulmonary disease) J44.9 CHF (congestive heart failure) I50.9 History of DVT (deep vein thrombosis) Z86.718 Hypertension I10 Hypertension type: essential hypertension GERD (gastroesophageal reflux disease) K21.9
--- NOTE | 2020-07-31 16:05 | P.DS_ITS ---
Discharge Providers Date of Admission: 07/29/20 17:45 Date of Discharge: July 31, 2020 Attending Provider at Admission: Sang Aceves DO Attending Provider at Discharge: Sang Aceves DO Primary Care Provider: Sari Blankenship DO Diagnoses at Discharge Discharge Diagnosis (1) Status post lumbar surgery: Status: Acute Permanent problem details: 1. L4/5 Interbody fusion with posterolateral fusion 2. L5/S1 Interbody fusion with posterolateral fusion 3. Instrumentation L4-S1 4. Cage at L4/5 5. Cage L5/S1 6. Laminectomy L4 for decomprsion of nerve 7. Laminotomy L5 for decompression of nerve 8. use of autograft from same incision 9. allograft 10. Bone marrow aspirate from Right iliac crest (2) Diabetes mellitus, type II: Status: Chronic (3) COPD (chronic obstructive pulmonary disease): Status: Chronic (4) CHF (congestive heart failure): Status: Chronic Permanent problem details: Echocardiogram in February 2019 showed an ejection fraction of 60% with no regional wall motion abnormalities though there was grade 1/4 diastolic dysfunction (5) History of DVT (deep vein thrombosis): Status: Chronic (6) Hypertension: Status: Chronic Qualifiers: Hypertension type: essential hypertension Qualified Code(s): I10 - Essential (primary) hypertension (7) GERD (gastroesophageal reflux disease): Status: Chronic Reason for Visit Reason for Visit: Lumbar spondylosis Hospital Course Hospital Course Patient was admitted to the hospital on 07/29/2020 after undergoing a L4-S1 posterior lumbar interbody fusions. Patient's hospital course was uneventful. She was discharged on 07/30/2020 to home. Physical Exam Urinary Catheter Management^: Moralez: Cath Placed During This Visit: yes, but has since been removed by the nurse Reason for Continuing Indwelling Catheter: Decision to DC Catheter Urinary Catheter Date of Insertion: 07/29/20 Urinary Catheter Time of Insertion: 12:45 Date Urinary Catheter Removed: 07/30/20 Time Urinary Catheter Discontinued: 11:00 Discharge Data Data Completed and Pending: Completed Studies During Hospitalization Category Date Time Status XR lumbar spine 1 V [id number] Routine Exams 07/29/20 Completed Vitals: Last Vital Signs Temp 98.0 F 07/30/20 16:16 Pulse 98 07/30/20 16:16 Resp 18 07/30/20 16:16 BP 160/79 07/30/20 16:16 Pulse Ox 92 07/30/20 16:16 Discharge Plan Discharge Patient Disposition: Home Condition: Stable Prescriptions: New oxycodone 10 mg tablet 10 mg PO Q6H PRN (Reason: pain) 7 Days Qty: 60 RF: 0 Continued azelastine 137 mcg (0.1 %) aerosol,spray 1 spray INTRANASAL BID RF: 0 oxycodone 10 mg tablet 10 mg PO Q8H PRN (Reason: Pain) RF: 0 Hold Instructions: Resume on 07/02/19. Hold until finished with Rx provided from hospital. lidocaine [Lidoderm] 5 % adhesive patch,medicated 1 patch TOPICAL DAILY RF: 0 oxybutynin chloride 10 mg tablet extended release 24hr 10 mg PO DAILY RF: 0 Trulicity 1.5 mg/0.5 mL pen injector 1 mg SUBCUT Q7D RF: 0 esomeprazole magnesium [Nexium] 40 mg capsule,delayed release(DR/EC) 40 mg PO DAILY RF: 0 montelukast 10 mg tablet 10 mg PO DAILY RF: 0 linagliptin 5 mg tablet 5 mg PO DAILY RF: 0 baclofen 10 mg tablet 10 mg PO TID PRN (Reason: Pain) RF: 0 albuterol sulfate 90 mcg/actuation HFA aerosol inhaler 2 puff INHALATION Q6H RF: 0 ondansetron HCl 4 mg tablet 4 mg PO Q8H RF: 0 amlodipine-benazepril 5-20 mg capsule 1 cap PO DAILY RF: 0 (DME) E0748 Bone growth stimulator See Rx Instructions .Route .MEDSUPPLY Qty: 1 RF: 0 duloxetine [Cymbalta] 60 mg Capsule,Delayed Release(Dr/Ec) 60 mg PO BID RF: 0 Levemir U-100 Insulin 100 unit/mL Solution 40 unit SUBCUT DAILY PRN (Reason: blood sugar ) RF: 0 Lasix 20 mg Tablet 10 - 20 mg PO DAILY PRN (Reason: Edema) RF: 0 ergocalciferol (vitamin D2) 1,250 mcg (50,000 unit) Capsule 1,250 mcg PO Q7D RF: 0 Discharge Orders: Discharge Order (Routine); Ordered 07/30/20 Ordered By: Sang Aceves Referrals: [facility] [Outside] Sang Aceves DO [Physician] - 08/13/20 10:45 am Sari Blankenship DO [Primary Care Provider] - 08/05/20 10:00 am Discharge Diet: Advance as tolerated and Usual diet Discharge Activity: Limit activity as instructed Patient Instructions: Oxycodone/Acetaminophen (By mouth), Lumbar Spinal Stenosis (GEN), Opioid Safety Activity Restrictions/Additional Instructions: Thank you for [facility] for your care! The following is a list of instructions, from your provider, to follow upon your discharge to ensure you have the optimal recovery from your recent injury orsurgery. Follow-up care is a peralta part of your treatment and safety. Be sure to make and go to all appointments, and call your doctor if you are having problems. If you do not already have a follow-up appointment made, call Dr. Aceves office in the next 1-3 days to make follow up appointment for 2 weeks at [phone]. It is also a good idea to know your test results and keep a list of the medicines you take. Medications will be prescribed for you at your provider's discretion. These medications are to be used as instructed; if they are taken more often that prescribed they will not be refilled early and in most cases will not be refilled at all. > When a refill is needed,you should contact karel valladares 2-3 business days before your prescription runs out. Medications will NOT be refilled by [employer] associate providers after hours! > Many pain medications contain Tylenol (Acetaminophen). Do not consume more than 4,000 mg of Tylenol per day in total with any combination ofmedications. > Pain medications can cause constipation. Please use an over the counter stool softener as directed, while taking pain medications. Consulty our local pharmacist with questions or recommendations on stool softeners. If constipation persists, contact our office or your primary care provider. > While under our care,you are not to receive pain medications or other controlled substances from any other provider unless our office is notified and approves. Any attempts to do so will result in refusal to prescribe any further pain medications and possible dismissal from our practice. ? Your wound and/or dressing should remain clean and dry for 2 days after surgery. On postoperative day 2 (48 hours after your surgery) the dressing (if present) should be removed and it is okay to shower and get the incision wet. Pad dry afterwards. No further dressing should be required from that point on. Do not put any creams or ointments on theincision > It is normal for there to be a small amount of discharge (bloody or blood tinged) present from a surgical wound for the first 1-3days. > The wound should be examined twice a day for signs of infection. Mild redness or bruising is to be expected but indications that an infection maybe starting would include; An increase in redness, swelling, or discharge, a foul odor present around the incision, and/or a fever greater than 101 ?F ? Showering is permitted, however we ask that you do not take a bath, sit in a whirlpool / Jacuzzi, or go swimming for 1 month. For only the first 2 days after surgery, lt wilt be necessary for you to cover your wound/dressing with plastic and tape to keep it dry. ? Walking is essential for the healing process after surgery. We would like you to slowly advance your walking. This should be done on relatively flat clear ground (inside or out) or can be done on a treadmill. Remember this goal does not have to happen all at once, slowly increase your distance and duration. This can be broken into more more than one walk per day as tolerated. Patients who walk as directed after surgery rarely require Physical Therapy. In the unlikely event this issue arises your provider will direct hospital staff to make the appropriate arrangements. ? No lifting over 5 pounds {a gallon of milk) or bending/twisting until further notice. Each of these activities places an unnecessary amount of stress onto the body and can impede the delicate healing process. > Instead of bending at the waist, keep your back straight and bend at the knees. > Instead of twisting your torso, keep your back straight and turn your entire body with your feet. ? You may sleep in any position which makes you comfortable. Many patients find comfort sleeping in a reclining chair. It is not abnormal to have difficulty sleeping for the first several weeks following your surgery. We luis mmend trying Benadry! or Tylenol PM as directed to help with your sleeping difficulties. Both medications are over the counter and available withoutprescription. ? NO SMOKING!!! Smoking dramatically increases the probability of developing postoperative wound infections. ? Common complaints after lumbar and/or thoracic spine surgery include, but are not limited to: numbness and/or tingling in the legs, pain around the incision and surrounding tissues, muscle spasms, or stiffness of the middle to low back. Contact our office if these symptoms persist or if an acute change occurs. ? No driving for the first 3-5days, and not while taking narcotics [] until seen at your follow-up appointment and cleared. There are no restrictions for riding on short trips, however if you take a longer trip, arrangements should be made to make regular stops to get out of the vehicle and stretch . ? Swelling is an unfortunate event that will take place with any surgery and is the primary source of your postoperative discomfort. While walking and regular approved activities helps control inflammation, there are additional steps you can take to minimizeswelling. > Place ice over the surgical site and surrounding tissue for twenty minutes, followed by applying a low/medium heat (heating pad) for an additional twenty minutes every 1-2 hours as needed for painrelief. > You may use of over the counter anti-inflammatory medications (Ibuprofen, Motrin, Aleve, Advil, etc) as directed on the package label. These types of medicines wm significantly reduce the amount of discomfort you experience after surgery from swelling. It should be noted that if you have and allergy to any of these medications, or a history of ulcers or kidney disease you should consult you primary care provider prior to starting these medications. Discharge Attestations Time Spent in Discharge Care*: less than 30 min Quality Metrics Clinical Quality Measures During this hospital stay, did patient experience: None Coding Level of Care Code Acute [facility] note Diagnoses Status post lumbar surgery Z98.890 Diabetes mellitus, type II E11.9 COPD (chronic obstructive pulmonary disease) J44.9 CHF (congestive heart failure) I50.9 History of DVT (deep vein thrombosis) Z86.718 Hypertension I10 Hypertension type: essential hypertension GERD (gastroesophageal reflux disease) K21.9
== END 2020-07-30 15:00 | disposition home or self-care (01) ==
LOC: MEDSURG 17:46
PROVIDERS: Admitting Provider Orthopaedic Surgery; Family Provider Family Medicine; PCP Family Medicine; Visit Provider Orthopaedic Surgery
PROC: (CPT 22612; principal; 2020-07-29 08:35)
DX: M43.17 Spondylolisthesis, lumbosacral region (principal); M48.062 Spinal stenosis, lumbar region with neurogenic claudication; I11.0 Hypertensive heart disease with heart failure; I50.9 Heart failure, unspecified; J44.9 Chronic obstructive pulmonary disease, unspecified; Z86.73 Personal history of transient ischemic attack (TIA), and cerebral infarction without residual deficits; E11.9 Type 2 diabetes mellitus without complications; K21.9 Gastro-esophageal reflux disease without esophagitis; Z86.718 Personal history of other venous thrombosis and embolism; M19.90 Unspecified osteoarthritis, unspecified site; Z82.49 Family history of ischemic heart disease and other diseases of the circulatory system; F17.210 Nicotine dependence, cigarettes, uncomplicated; E78.5 Hyperlipidemia, unspecified; F32.9 Major depressive disorder, single episode, unspecified
CPT/HCPCS: 20930; 22633; 22634; 22842; 22853; 63047; 63048; 36415; 36416; 51702; 72020; 76000; 80048; 82962; 85025; 96372; 97161; C1713; C9359; G0378; J0330; J0690; J1170; J1644; J1650; J1885; J2270; J2405; J2704; J3010; J3490; J7030

== ENCOUNTER → 2020-09-10 11:11 | Outpatient (BNVA) | payer MEDICARE, MEDICAID, SELFPAY | PROVIDERS: Family Provider Family Medicine; PCP Family Medicine; Visit Provider Orthopaedic Surgery | DX: M48.062 Spinal stenosis, lumbar region with neurogenic claudication (principal); Z48.89 Encounter for other specified surgical aftercare | CPT/HCPCS: 72100 ==

== ENCOUNTER → 2020-10-29 12:16 | Outpatient (BNVA) | payer MEDICARE, MEDICAID, SELFPAY | PROVIDERS: Family Provider Family Medicine; PCP Family Medicine; Visit Provider Orthopaedic Surgery | DX: M48.062 Spinal stenosis, lumbar region with neurogenic claudication (principal); Z48.89 Encounter for other specified surgical aftercare; Z98.890 Other specified postprocedural states | CPT/HCPCS: 72100 ==

== ENCOUNTER 2021-01-11 13:02 | Emergency (ER) | payer MEDICARE, MEDICAID, SELFPAY ==
[2021-01-11 13:07] VITALS: BP 136/90; PULSE 100; RESP 17; TEMP 36.3; O2SAT 96; BMI 29.2
--- NOTE | 2021-01-11 13:17 | XRR_ITS ---
PROCEDURE INFORMATION: Exam: XR Left Knee Exam date and time: 01/11/2021 1:17 PM Age: 65 years old Clinical indication: Fall with blunt trauma involving the left knee. TECHNIQUE: Imaging protocol: XR Left knee. Views: 1 or 2 views. COMPARISON: CR Knee 3 views, LEFT* [id number] 08/06/2018 3:41 PM FINDINGS: A left total knee arthroplasty is situated in anatomic alignment. No knee joint effusion is seen. Patella baja is noted; correlate for quadriceps dysfunction. There is lucency through the cortex of the medial femoral epiphysis that may reflect a nutrient foramen. A subtle nondisplaced fracture is difficult to exclude. Consider CT to further assess. Atherosclerotic arterial calcifications are noted. XR/XR knee LT 1-2V [id number] IMPRESSION: There is lucency through the cortex of the medial femoral epiphysis that may reflect a nutrient foramen. A subtle nondisplaced fracture is difficult to exclude. Consider CT to further assess. Patella baja is noted; correlate for quadriceps dysfunction.
--- NOTE | 2021-01-11 13:17 | XRR_ITS ---
NOTE: Report was unsigned for reason: Order was edited. Original Signature date and time was: 01/11/21 @ 1450 PROCEDURE INFORMATION: Exam: XR Bilateral Hips Exam date and time: 01/11/2021 1:17 PM Age: 65 years old Clinical indication: Fall with blunt trauma involving the bilateral hips. Pain on the left is worse. TECHNIQUE: Imaging protocol: XR bilateral hips. Views: 2 views of hips with pelvis when performed. COMPARISON: CR Hip 2-3v RIGHT wwo Pelv* [id number] 08/11/2018 5:41 AM FINDINGS: No fracture, dislocation or subluxation. No periosteal reaction or supsicious bone lesion. Mild degenerative changes at the hips. Lumbosacral hardware is noted. Atherosclerotic arterial calcifications are seen. MTDD XR/XR hip BI 2V wo/w pel [id number] IMPRESSION: No acute fracture is identified.
--- NOTE | 2021-01-11 13:17 | XRR_ITS ---
PROCEDURE INFORMATION: Exam: XR Chest Exam date and time: 01/11/2021 1:17 PM Age: 65 years old Clinical indication: Fall with blunt trauma and reduced breath sounds. TECHNIQUE: Imaging protocol: XR of the chest. Views: 1 view. COMPARISON: CR Chest 2 views* [id number] 11/08/2018 10:53 AM FINDINGS: Lungs: There appears to be vascular congestion in the left chest. This may be exaggerated by positioning. No pulmonary consolidation. Pleural spaces: No pleural effusion.. No pneumothorax. Heart/Mediastinum: The cardiomediastinal silhouette appears enlarged; this is likely exaggerated by low lung volumes, AP technique and marked patient rotation. No gross evidence of pneumomediastinum. Bones/joints: Cervical hardware is incompletely visualized. No gross fracture. XR/XR chest 1V portable [id number] IMPRESSION: 1. The cardiomediastinal silhouette appears enlarged; this is likely exaggerated by low lung volumes, AP technique and marked patient rotation. 2. There appears to be vascular congestion in the left chest. This may be exaggerated by positioning. 3. Recommend PA and lateral chest radiographs to better characterize. Alternatively, CTA chest may be obtained to further assess.
--- NOTE | 2021-01-11 13:35 | W.ED.FALL ---
HPI - Fall General: Chief Complaint: Fall Stated Complaint: LEFT KNEE AND HIP PAIN S/P FALL Time Seen by Provider: 01/11/21 13:07 History of Present Illness: HPI Narrative: The patient is a 65-year-old female with past medical history stroke 20 years ago with right-sided weakness. She lives in a wheelchair with limited mobility. Patient comes to the ER today after a fall. She was trying to get out of her wheelchair and fell to the floor hitting her left knee and complaining of severe pain there as well as her left hip. She is severely hard of hearing chronically and history is somewhat difficult on her though she is significantly in pain in her left knee. She was brought to the ER by EMS who gave her 100 fentanyl and Zofran prior to arrival. She is sleepy when not being talked to. She says her son will arrive soon and will check with him when he arrives. She denies hitting her head or loss of consciousness. Also denies headache, and neck pain. Many years ago she had surgery on the left knee and says she had a more recent procedure on it as well though unclear what procedure she had done.. complaint: fall Fall from: wheelchair Place fall occurred: home Loss of consciousness: None Prolonged down time: no Severity: moderate Quality: sharp Associated symptoms-after fall: Reports no associated symptoms and difficulty walking; Denies abdominal pain, chest pain or neck pain Review of Systems General: Reports: 10 or more systems reviewed and unremarkable except in HPI and below Const: Denies: fatigue Eyes: Denies: change in vision, blurry vision or eye redness ENMT: Denies: throat pain, swelling of lips/tongue, ear or mastoid pain or nasal congestion Card: Denies: chest pain, palpitations, irregular heart rhythm, edema, dyspnea on exertion or orthopnea Resp: Denies: dyspnea, productive cough or non-productive cough GI: Denies: abdominal pain, diarrhea or GI cramping : Denies: flank pain, difficulty voiding, urinary frequency or urinary urgency Musc: Reports: extremity pain and joint pain; Denies: neck pain, back pain, joint redness, limited range of motion or muscle weakness Skin/Breast: Denies: rash, pruritus, erythema, skin pain or skin tenderness Neuro: Reports: difficulty walking Psych: Denies: anxiety or depression Endo: Denies: polyuria All/Imm: Denies: urticaria, throat swelling or tongue swelling PFSH ED PFSH: Medical History Abnormal nuclear stress test (~05/2019) Cervical disc disorder with myelopathy of mid-cervical region CHF (congestive heart failure) Echocardiogram in February 2019 showed an ejection fraction of 60% with no regional wall motion abnormalities though there was grade 1/4 diastolic dysfunction COPD (chronic obstructive pulmonary disease) CVA (cerebral vascular accident) Diabetes mellitus, type II GERD (gastroesophageal reflux disease) History of DVT (deep vein thrombosis) Hypertension Left renal mass Osteoarthritis Spinal stenosis Surgical History History of cataract surgery S/P knee replacement Status post cervical spinal fusion (06/26/19) C4-C7 ACDFF, with C5/C6 corpectomies, OMC. Status post lumbar surgery (07/29/20) 1. L4/5 Interbody fusion with posterolateral fusion 2. L5/S1 Interbody fusion with posterolateral fusion 3. Instrumentation L4-S1 4. Cage at L4/5 5. Cage L5/S1 6. Laminectomy L4 for decomprsion of nerve 7. Laminotomy L5 for decompression of nerve 8. use of autograft from same incision 9. allograft 10. Bone marrow aspirate from Right iliac crest Family History Other CAD (coronary artery disease) Social History Smoking and tobacco status: never smoked Alcohol intake: never Lives independently: No Marital status: / Current occupational status: disabled History of recent travel: No Physical Exam Const: COMMON NORMALS: no acute distress, average body habitus, patient oriented x3, no limitations, healthy appearing, alert and well nourished GENERAL APPEARANCE: cooperative, comfortable, well kempt and well developed ORIENTATION/CONSCIOUSNESS: Yes awake, Yes oriented to person, Yes oriented to place and Yes oriented to time HENMT: COMMON NORMALS: normocephalic, external ears normal and Normal external nose present HEAD & SCALP: normal to inspection and normocephalic NOSE: Normal external nose present EXTERNAL EAR: Yes external ears normal MOUTH: Normal oral and palatal mucosa present THROAT: posterior oropharynx normal Eye: COMMON NORMALS: Equal, round and reactive pupils present and EOMs intact bilaterally GENERAL EYE: appearance normal, both eyes and all related structures PUPIL: Yes Equal, round and reactive pupils present Neck/C-Spine: COMMON NORMALS: full ROM, no lymphadenopathy, no meningeal signs and no JVD GENERAL: Yes normal visual inspection Lymph: LYMPHATIC: no lymphadenopathy noted Chest: COMMONS NORMALS: normal inspection of the chest and normal palpation of entire chest wall Resp: COMMON NORMALS: normal respiratory effort, No retractions, No use of accessory muscles, clear to auscultation bilaterally and percussion normal EFFORT & INSPECTION: Yes able to speak in complete sentences AUSCULTATION: clear to auscultation bilaterally PERCUSSION: percussion normal Cardio: COMMON NORMALS: no JVD, regular rate, regular rhythm, S1 normal heart sound present, S2 normal heart sound present and Peripheral pulses 2+ throughout RATE: regular rate RHYTHM: regular rhythm HEART SOUNDS: S1 normal heart sound present and S2 normal heart sound present PERIPHERAL PULSES: Peripheral pulses 2+ throughout GI: COMMON NORMALS: Normal to inspection, nondistended, normoactive bowel sounds present, Soft to palpation, non-tender and no masses INSPECTION: Yes normal to inspection PALPATION: Yes Soft to palpation : COMMON NORMALS: Yes no CVA tenderness BLADDER/KIDNEY EXAM: Yes no CVA tenderness Back/Pelvis: COMMON NORMALS: no CVA tenderness, thoracic and lumbar spine normal to inspection, no thoracic nor lumbar tenderness and thoraco-lumbar ROM normal Extremity: COMMON NORMALS: capillary refill normal and no pedal edema NARRATIVE EXTREMITY EXAM: Left knee appears normal with old midline surgical scar though she has it flexed and unable to straighten it. Severe tenderness to left knee with palpation. Limited ability to evaluate the joint secondary to pain and unwillingness to straighten leg. Also has left hip pain. Unable to evaluate if there is shortening without straightening the leg. Neurovascularly intact distal to injury. Good cap refill in feet bilaterally. GENERAL: Yes normal exam except as noted Neuro: COMMON NORMALS: patient oriented x3, CN's II-XII intact bilaterally, moves all extremities, no focal motor deficits, no sensory deficits noted and gait normal SENSORIUM/ORIENTATION: Yes alert, Yes oriented to person, Yes oriented to place and Yes oriented to time MENINGEAL SIGNS: Yes no meningeal signs Psych: COMMON NORMALS: mental status grossly normal, Normal thought process present, cooperative, normal affect and speech normal APPEARANCE: Yes well kempt ATTITUDE: Yes calm SPEECH: Yes normal speech THOUGHT PROCESS: Normal thought process present Skin: COMMON NORMALS: no rashes or lesions noted GENERAL SKIN EXAM: no rashes or lesions noted Course Vital Signs: Vital signs: Vital Signs Temperature 97.3 F L 01/11/21 13:07 Pulse Rate 100 01/11/21 13:07 Respiratory Rate 17 01/11/21 15:55 Blood Pressure 136/90 01/11/21 13:07 Pulse Oximetry 94 01/11/21 15:55 MDM - Fall MDM Narrative: Medical decision making narrative: The patient came in for a fall. She has an old stroke with right-sided weakness for many years. She lives in a wheelchair and does not walk. She usually does not get out of bed without her grandson being there however he was at the store and she got out of bed which is how she fell. She did not have prolonged time on the floor and had no other significant injuries. X-ray was not totally diagnostic and the radiologist recommended a CT which was blurred by her knee prosthesis. She does have patella Baha which could potentially indicate some quadriceps ligamentous injury. There is a divot slightly above her knee but it is likely from severely atrophied muscles. No significant swelling or bruising seen. She does complain of severe pain but does take oxycodone daily. Recommended she continue to take it as directed. Also follow-up with orthopedic surgery and placed case management referral to help her get that appointment, primary care appointment next week, and also set up with nephrology as CT incidentally showed she has narrowing of her renal artery which could potentially be a problem in the future. She will return to the ER at anytime with worsening symptoms Lab Data: Labs: Lab Results 01/11/21 01/11/21 01/11/21 16:25 16:25 16:25 WBC 15.1 10^3/uL H 10 ^3/uL (4.0-10.0) RBC 4.61 10^6/uL 10^6 /uL (4.1-5.3) Hgb 13.7 g/dL g/dL (11.5-15.3) Hct 41.3 % % (37.0-47.0) MCV 89.6 fl fl (81-99) MCH 29.7 pg pg (28.0-34.0) MCHC 33.2 g/dL g/dL (30.0-36.0) RDW 13.2 % % (12.1-15.1) Plt Count 245 10^3/cmm 10^3 /cmm (130-400) MPV 12.2 fL H fL (7.4-10.4) Neut % (Auto) 82.4 % % Lymph % (Auto) 9.5 % % [place] % (Auto) 7.2 % % Eos % (Auto) 0.0 % % Baso % (Auto) 0.3 % % Neut # (Auto) 12.47 10^3/uL H 1 0^3/uL (1.8-7.7) Lymph # (Auto) 1.4 10^3/uL 10^3/ uL (0.8-4.8) [place] # (Auto) 1.1 10^3/uL H 10^ 3/uL (0.2-0.9) Eos # (Auto) 0.0 10^3/uL 10^3/ uL (0.0-0.8) Baso # (Auto) 0.0 10^3/uL 10^3/ uL (0.0-0.1) Nucleated RBC % (a uto) 0 % % Nucleated RBCs # 0.0 /100WBC /100W BC Sodium 134 mmol/L L mmol /L (136-145) Potassium 4.0 mmol/L mmol/L (3.5-5.1) Chloride 99 mmol/L mmol/L (98-107) Carbon Dioxide 25 mmol/L mmol/L (22-29) Anion Gap 14.0 (5-19) BUN 15 mg/dL mg/dL (8-23) Creatinine 0.8 mg/dL mg/dL (0.5-0.9) GFR Calculation 72.0 mL/min L mL/ min (90-130) Glucose 109 mg/dL mg/dL (65-115) Calculated Osmolal ity 279 mOsm/kg L mOs m/kg (285-295) Calcium 9.3 mg/dL mg/dL (8.5-10.5) Total Bilirubin 0.7 mg/dL mg/dL (0.15-1.2) AST 15 U/L U/L (0-32) ALT 12 U/L U/L (0-33) Alkaline Phosphata se 111 IU/L H IU/L (35-105) Troponin T Baselin e 26 ng/L H ng/L (0-10) Total Protein 6.8 g/dL g/dL (6.6-8.7) Albumin 3.9 g/dL g/dL (3.5-5.2) Globulin 2.9 g/dL g/dL (1.3-4.6) Discharge Plan Discharge Patient Disposition: Home Clinical Impression: Contusion of knee, Renal artery stenosis Condition: Stable Prescriptions: No Action azelastine 137 mcg (0.1 %) aerosol,spray 1 spray INTRANASAL BID RF: 0 oxycodone 10 mg tablet 10 mg PO Q8H PRN (Reason: Pain) RF: 0 Hold Instructions: Resume on 07/02/19. Hold until finished with Rx provided from hospital. lidocaine [Lidoderm] 5 % adhesive patch,medicated 1 patch TOPICAL DAILY RF: 0 oxybutynin chloride 10 mg tablet extended release 24hr 10 mg PO DAILY RF: 0 Trulicity 1.5 mg/0.5 mL pen injector 1 mg SUBCUT Q7D RF: 0 esomeprazole magnesium [Nexium] 40 mg capsule,delayed release(DR/EC) 40 mg PO DAILY RF: 0 montelukast 10 mg tablet 10 mg PO DAILY RF: 0 linagliptin 5 mg tablet 5 mg PO DAILY RF: 0 baclofen 10 mg tablet 10 mg PO TID PRN (Reason: Pain) RF: 0 albuterol sulfate 90 mcg/actuation HFA aerosol inhaler 2 puff INHALATION Q6H PRN (Reason: Shortness Of Breath) RF: 0 ondansetron HCl 4 mg tablet 4 mg PO Q8H PRN (Reason: Nausea) RF: 0 (DME) E0748 Bone growth stimulator See Rx Instructions .Route .MEDSUPPLY Qty: 1 RF: 0 Levemir U-100 Insulin 100 unit/mL Solution 40 unit SUBCUT DAILY PRN (Reason: blood sugar ) RF: 0 furosemide [Lasix] 20 mg Tablet 10 - 20 mg PO DAILY PRN (Reason: Edema) RF: 0 ergocalciferol (vitamin D2) 1,250 mcg (50,000 unit) Capsule 1,250 mcg PO Q7D RF: 0 Celebrex 200 mg Capsule 200 mg PO DAILY RF: 0 tizanidine 4 mg Tablet 4 mg PO QID PRN (Reason: Muscle Pain) RF: 0 benazepril 20 mg Tablet 20 mg PO DAILY RF: 0 Discharge Orders: Discharge ED (Routine); Ordered 01/11/21 Ordered By: Spnecer Liang Referrals: Sari Blankenship DO [Primary Care Provider] - Patient Instructions: Knee Pain (ED), Opioid Safety Activity Restrictions/Additional Instructions: You have fallen and landed on your knee which is caused a deep bruise not and is a contusion. There are no fractures seen on imaging and the CAT scan. Please follow-up with orthopedic surgery next week to discuss your knee pain as there is also other possibility of joint and ligament injury not seen on the imaging. Return to the ER at anytime with worsening symptoms otherwise follow-up with orthopedic surgery next week as well as your primary care physician. I have also placed a nephrology consult as the CAT scan of your belly noticed a narrowing of your renal artery which could cause you severely high blood pressure in the future. Please make sure you follow-up with these 3 providers and return to the ER with worsening symptoms at any time Coding Level of Care Code ED Corporate Development Manager for Riley Romero Exam Comprehensive
--- NOTE | 2021-01-11 15:07 | ECG_ITS ---
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 Measurements Intervals [place] Rate: 92 P: 51 [place]: 158 QRS: 32 QRSD: 89 T: 64 QT: 323 QTc: 401 Interpretive Statements SINUS RHYTHM NONSPECIFIC T-WAVE ABNORMALITY Compared to ECG 07/23/2020 11:43:26 T-wave abnormality now present Electronically Signed On 01-11-2021 20:57:32 CDT by Cesar Cuba M.D. [id number]
--- NOTE | 2021-01-11 15:07 | CTR_ITS ---
PROCEDURE INFORMATION: Exam: CTA Chest With Contrast Exam date and time: 01/11/2021 3:07 PM Age: 65 years old Clinical indication: Elevated white blood cell count. Abnormal chest x-ray with unilateral vascular congestion. Rule out PE. TECHNIQUE: Imaging protocol: Computed tomographic angiography of the chest with contrast. 3D rendering (Not supervised by radiologist): MIP and/or 3D reconstructed images were created by the technologist. Radiation optimization: All CT scans at this facility use at least one of these dose optimization techniques: automated exposure control; mA and/or kV adjustment per patient size (includes targeted exams where dose is matched to clinical indication); or iterative reconstruction. Contrast material: VISI 320; Contrast volume: 95 ml; Contrast route: INTRAVENOUS (IV); COMPARISON: CR XR chest 1V portable [id number] 01/11/2021 1:51 PM RADIATION DOSE METRICS: Total DLP (mGy-cm): 1514.7 FINDINGS: Pulmonary arteries: Assessment for pulmonary embolus is compromised by poor bolus timing. No main/central pulmonary embolus is seen. Aorta: No thoracic aortic aneurysm. No thoracic aortic dissection. Lungs: There is mild scarring and/or atelectasis in the chest bilaterally. No pulmonary mass. Pleural spaces: No pleural effusion.. No pneumothorax. Heart: Coronary arterial calcifications are noted. Trace pericardial fluid. Mediastinal space: Small hiatal hernia. Lymph nodes: No significant mediastinal lymphadenopathy. Bones/joints: No acute fracture is identified. IMPRESSION: 1. Assessment for pulmonary embolus is compromised by poor bolus timing. No main/central pulmonary embolus is seen. 2. Coronary artery disease. PROCEDURE INFORMATION: Exam: CT Abdomen And Pelvis With Contrast Exam date and time: 01/11/2021 3:07 PM Age: 65 years old Clinical indication: Elevated white blood cell count. TECHNIQUE: Imaging protocol: Computed tomography of the abdomen and pelvis with contrast. Radiation optimization: All CT scans at this facility use at least one of these dose optimization techniques: automated exposure control; mA and/or kV adjustment per patient size (includes targeted exams where dose is matched to clinical indication); or iterative reconstruction. Contrast material: VISI 320; Contrast volume: 95 ml; Contrast route: INTRAVENOUS (IV); COMPARISON: CR XR chest 1V portable [id number] 01/11/2021 1:51 PM RADIATION DOSE METRICS: Total DLP (mGy-cm): 1514.7 FINDINGS: Liver: The liver is unremarkable. Gallbladder and bile ducts: The gallbladder is unremarkable. Pancreas: The pancreas is unremarkable. Spleen: The spleen is unremarkable. Adrenal glands: The adrenal glands are unremarkable. Kidneys and ureters: There is an indeterminate left renal lesion that measures 3.2 cm. This may represent a hemorrhagic cyst. A simple left renal cyst measures 1.3 cm. A separate simple left renal cyst measures 1.3 cm. No hydronephrosis. At least agsk-nw-apldhfef narrowing of the right renal artery proximally. Stomach and bowel: The stomach and small bowel are unremarkable.. The colon is unremarkable. Appendix: The appendix is unremarkable. Intraperitoneal space: No free intraperitoneal air. Vasculature: No abdominal aortic aneurysm. Lymph nodes: No retroperitoneal lymphadenopathy. Urinary bladder: The bladder is unremarkable. Reproductive: The uterus and adnexa are grossly unremarkable. Bones/joints: Lumbosacral hardware is noted. No acute fracture is seen. Soft tissues: Small fat containing umbilical hernia. CT/CT angio chest w abd pel w con IMPRESSION: 1. Indeterminate left renal lesion that may represent a hemorrhagic cyst. Recommend nonemergent renal ultrasound to exclude a solid renal lesion. 2. At least mucf-hs-dywzljca narrowing of the right renal artery proximally. COMMENTS: Consistent with the [employer]'s Incidental Findings Committee white paper (J Am Tamia Radiol 2018): Any incidental renal lesion less than 1 cm or classified as too small to characterize, or any incidental cystic renal lesion characterized as simple-appearing, is likely benign. No follow-up imaging is recommended for these lesions per consensus recommendations based on imaging criteria. Radiation Dose CTDIVOL = (mGy): DLP = 1514.7~1514.7 (mGy-cm)
--- NOTE | 2021-01-11 15:07 | CTR_ITS ---
PROCEDURE INFORMATION: Exam: CT Left Lower Extremity Without Contrast, Knee Exam date and time: 01/11/2021 3:07 PM Age: 65 years old Clinical indication: Blunt trauma involving the left knee with pain. Fall. Prior total knee arthroplasty. TECHNIQUE: Imaging protocol: CT of the Left lower extremity without contrast was performed. Exam focused on the knee. Radiation optimization: All CT scans at this facility use at least one of these dose optimization techniques: automated exposure control; mA and/or kV adjustment per patient size (includes targeted exams where dose is matched to clinical indication); or iterative reconstruction. COMPARISON: CR XR knee LT 1-2V [id number] 01/11/2021 1:48 PM RADIATION DOSE METRICS: Total DLP (mGy-cm): 447 FINDINGS: A total knee arthroplasty is situated in anatomic alignment. No knee joint effusion is seen. Patella baja is noted; correlate for quadriceps dysfunction. No acute fracture or dislocation is identified. CT/CT knee LT wo con* [id number] IMPRESSION: 1. Beam hardening artifact compromises the assessment. 2. No acute fracture or hardware complication is seen. 3. Patella baja is noted; correlate for quadriceps dysfunction. Radiation Dose CTDIVOL = (mGy): DLP = 447 (mGy-cm)
[2021-01-11 15:55] VITALS: RESP 17; O2SAT 94
[2021-01-11] MEDS: HYDROmorphone 1 mg/mL INJ 1 mL 0.5 MG IVP (15:55)
[2021-01-11] MEDS: ondansetron 2 mg/ML SDV 2 mL 4 MG IVP (16:29)
[2021-01-11 16:36] LABS: Basophils % 0.3 %; Hematocrit 41.3 % (37.0-47.0); Hemoglobin 13.7 g/dL (11.5-15.3); Lymphocytes # 1.4 10^3/uL (0.8-4.8); Lymphocytes % 9.5 %; Mean Corpuscular HGB Conc 33.2 g/dL (30.0-36.0); Mean Corpuscular Hemoglobin 29.7 pg (28.0-34.0); Mean Corpuscular Volume 89.6 fl (81-99); Mean Platelet Volume 12.2 fL (7.4-10.4); Monocytes # 1.1 10^3/uL (0.2-0.9); Monocytes % 7.2 %; Neutrophils # 12.47 10^3/uL (1.8-7.7); Neutrophils % 82.4 %; Nucleated Red Blood Cells % 0 %; Platelet Count 245 10^3/cmm (130-400); Red Blood Count 4.61 10^6/uL (4.1-5.3); Red Cell Distribution Width 13.2 % (12.1-15.1); White Blood Count 15.1 10^3/uL (4.0-10.0)
[2021-01-11 16:57] LABS: Troponin(5th) Baseline 26 ng/L (0-10)
[2021-01-11 17:01] LABS: Alanine Aminotransferase 12 U/L (0-33); Albumin Level 3.9 g/dL (3.5-5.2); Alkaline Phosphatase 111 IU/L (35-105); Aspartate Amino Transferase 15 U/L (0-32); Blood Urea Nitrogen 15 mg/dL (8-23); Calcium 9.3 mg/dL (8.5-10.5); Carbon Dioxide 25 mmol/L (22-29); Chloride 99 mmol/L (98-107); Creatinine Clr Calc Pharmacy 65.3991; Globulin 2.9 g/dL (1.3-4.6); Glucose 109 mg/dL (65-115); Osmolality Calculated 279 mOsm/kg (285-295); Sodium 134 mmol/L (136-145); Total Bilirubin 0.7 mg/dL (0.15-1.2); Total Protein 6.8 g/dL (6.6-8.7)
--- NOTE | 2021-01-11 17:07 | ECG_ITS ---
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 Measurements Intervals [place] Rate: 98 P: 45 AZ: 153 QRS: 24 QRSD: 85 T: 65 QT: 341 QTc: 437 Interpretive Statements SINUS RHYTHM NONSPECIFIC T-WAVE ABNORMALITY Compared to ECG 01/11/2021 15:22:28 No significant changes Electronically Signed On 01-11-2021 21:12:12 CDT by Cesar Cuba M.D. [id number]
[2021-01-11] MEDS: hydrocortisone 100 mg/2 mL SDV IVP (17:15)
[2021-01-11] MEDS: diphenhydrAMINE 50 mg/mL SDV 1mL IVP (17:20)
[2021-01-11] MEDS: iodixanol 320 mg/mL 100mL Btl IV (17:37)
[2021-01-11 20:03] VITALS: BP 138/87; PULSE 96; RESP 19; O2SAT 97
[2021-01-11 20:08] LABS: Troponin 5 2HR 25.39 ng/L (0-10); Troponin 5 2HR Delta -0.61 ABS# (0-10)
--- NOTE | 2021-01-13 10:13 | DCPLANNER ---
privacy compliance manager had message to schedule a follow up appointment for patient with ortho. privacy compliance manager called the ortho clinic, spoke with Pilar, gave clinic patients information. privacy compliance manager was told that patients information would be printed and reviewed. Clinic will call patient with appointment information.
--- NOTE | 2021-01-14 08:04 | DCPLANNER ---
airport location manager had message to schedule a follow up appointment for patient with neurology. airport location manager emailed patients information to the neurology clinic. Patients information will be printed and reviewed. Clinic will call patient with appointment information.
--- NOTE | 2021-01-15 14:24 | DCPLANNER ---
Patient has a follow up appointment scheduled for Sunday, January 17, [address] at 9:[address] Tirado. Clinic will call patient with appointment information.
--- NOTE | 2021-02-27 14:10 | DCPLANNER ---
Patient had an appointment scheduled for 01.17.[address] Tirado at [facility] - patient did attend appointment.
--- NOTE | 2021-02-28 15:27 | DCPLANNER ---
Neurology clinic contacted adult protective caseworker stating that clinic attempted to call patient to schedule a follow up appointment. The clinic was unable to speak with patient at this time, a message to was left for patient to call clinic to schedule an appointment.
--- NOTE | 2021-03-05 11:06 | DCPLANNER ---
area development manager was told that clinic attempted to contact patient, unable to speak with patient, a message was left for patient to call clinic to schedule an appointment.
== END 2021-01-11 20:03 | disposition home or self-care (01) ==
PROVIDERS: Emergency Provider Family Medicine; PCP Family Medicine
DX: I70.1 Atherosclerosis of renal artery (principal); S80.02XA Contusion of left knee, initial encounter; W05.0XXA Fall from non-moving wheelchair, initial encounter; I11.0 Hypertensive heart disease with heart failure; I50.9 Heart failure, unspecified; J44.9 Chronic obstructive pulmonary disease, unspecified; Z86.73 Personal history of transient ischemic attack (TIA), and cerebral infarction without residual deficits; E11.9 Type 2 diabetes mellitus without complications; Z96.659 Presence of unspecified artificial knee joint
CPT/HCPCS: 71045; 71275; 73521; 73522; 73560; 73700; 74177; 80053; 84484; 85025; 93005; 96374; 96375; 99283; J1170; J1200; J1720; J2405; Q9967

== ENCOUNTER 2024-10-09 18:05 | Inpatient (IN) | payer OTHER, MEDICAID, SELFPAY ==
[2024-10-09] VITALS (8 sets, daily range): BP systolic 141–174; BP diastolic 68–92; PULSE 63–98; RESP 16–20; TEMP 36.7; O2SAT 91–95; BMI 22.8
--- NOTE | 2024-10-09 18:10 | XRR_ITS ---
PROCEDURE INFORMATION: Exam: XR Chest Exam date and time: 10/09/2024 7:32 PM Age: 69 years old Clinical indication: Other: Weakness TECHNIQUE: Imaging protocol: Radiologic exam of the chest. Views: 1 view. COMPARISON: CT angio chest w abd pel w con 01/11/2021 5:31 PM FINDINGS: Lungs: No overt pulmonary edema. No consolidation. Pleural spaces: No appreciable pleural effusion. No pneumothorax. Heart/Mediastinum: Unremarkable. No cardiomegaly. Bones/joints: No acute findings. XR/XR chest 1V portable [id number] IMPRESSION: No acute findings.
--- NOTE | 2024-10-09 18:10 | ECG_ITS ---
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 Measurements Intervals [place] Rate: 84 P: 35 [place]: 158 QRS: 3 QRSD: 90 T: 87 QT: 359 QTc: 425 Interpretive Statements SINUS RHYTHM WITH SINUS ARRHYTHMIA ST DEVIATION AND MODERATE T-WAVE ABNORMALITY, CONSIDER LATERAL ISCHEMIA [-0.1+ mV T-WAVE IN I/aVL/V5/V6] Compared to ECG 01/11/2021 17:14:30 Possible ischemia now present T-wave abnormality still present Electronically Signed On 10-10-2024 17:15:46 CDT by Cesar Cuba M.D. [id number]
--- NOTE | 2024-10-09 18:52 | CTR_ITS ---
PROCEDURE INFORMATION: Exam: CT Head Without Contrast Exam date and time: 10/09/2024 8:18 PM Age: 69 years old Clinical indication: Weakness, facial; Additional info: Left sided hemiparesis TECHNIQUE: Imaging protocol: Computed tomography of the head without contrast. Radiation optimization: All CT scans at this facility use at least one of these dose optimization techniques: automated exposure control; mA and/or kV adjustment per patient size (includes targeted exams where dose is matched to clinical indication); or iterative reconstruction. COMPARISON: CT head wo con* [id number] 08/11/2018 5:31 AM RADIATION DOSE METRICS: Total DLP (mGy-cm): 1137.68 FINDINGS: Brain: Cortical hypodensity in the medial right frontal lobe, although the degree of hypodensity suggests this is likely an old, or at least subacute insult. Some supra posed acute on chronic ischemia might be a consideration. Remote lacunar infarction right thalamus. Left parietal encephalomalacia is noted. No intracranial hemorrhage. No extra-axial fluid collection. No midline shift. Cerebral ventricles: No hydrocephalus. Paranasal sinuses: Paranasal sinuses are grossly clear. Mastoid air cells: Mastoid air cells are grossly clear. Bones: Calvarium appears intact. Soft tissues: Unremarkable. CT/CT head wo con* [id number] IMPRESSION: Age indeterminate relatively significant area of ischemic change medial right frontal lobe.
[2024-10-09 19:12] LABS: Basophils % 0.1 %; Hematocrit 46.2 % (36-47); Lymphocytes # 1.6 10^3/uL (0.8-4.8); Lymphocytes % 12.5 %; Mean Corpuscular Hemoglobin 29.9 pg (27-33); Mean Platelet Volume 11.9 fL (7.4-10.4); Monocytes % 7.8 %; Neutrophils # 10.01 10^3/uL (1.8-7.7); Neutrophils % 78.9 %; Nucleated Red Blood Cells % 0 %; Platelet Count 306 10^3/cmm (157-399); Red Blood Count 5.25 10^6/uL (3.85-5.65); Red Cell Distribution Width 13.8 % (12.1-15.1); White Blood Count 12.69 10^3/uL (3.29-11.43)
[2024-10-09 19:30] LABS: Alanine Aminotransferase 37 U/L (0-33); Albumin Level 4.1 g/dL (3.5-5.2); Alkaline Phosphatase 112 U/L (35-105); Anion Gap 20.4 (5-19); Aspartate Amino Transferase 36 U/L (0-32); Blood Urea Nitrogen 31 mg/dL (8-23); Calcium 9.4 mg/dL (8.5-10.5); Carbon Dioxide 21 mmol/L (22-29); Chloride 94 mmol/L (98-107); Globulin 3.8 g/dL (1.3-4.6); Glomerular Filtration Rate 44.5 mL/min (90-130); Glucose 217 mg/dL (65-115); Lipase 27 U/L (13-60); Magnesium 2.3 mg/dL (1.7-2.3); Osmolality Calculated 285 mOsm/kg (285-295); Potassium 4.4 mmol/L (3.5-5.1); Sodium 131 mmol/L (136-145); Total Bilirubin 0.8 mg/dL (0.15-1.2); Total Protein 7.9 g/dL (6.6-8.7)
[2024-10-09 19:33] LABS: Lactic Sepsis W/Reflex 1.2 mmol/L (0.5-2.2)
[2024-10-09 19:39] LABS: Bilirubin Urine Negative (Negative); Blood Urine Negative (Negative); Glucose Urine UA Negative (Normal); Ketones Urine Negative (Negative); Leukocyte Esterase Urine Negative (Negative); Nitrate Urine Negative (Negative); Protein Urine Negative (Negative); Specific Gravity, Urine 1.009 (1.005-1.030); Urine Appearance Clear (CLEAR); Urine Color Yellow (Yellow); pH Urine 5.5 (5-7)
[2024-10-09 19:44] LABS: Add Urine Microscopic? YES; Bacteria Urine None Seen /hpf; Hyaline Casts Urine 0-4 /lpf; RBC Urine 0-2 /hpf (0-2); Squamous Epithelial Cell Urine 0-5 /hpf (0-5); WBC Urine 0-5 /hpf (0-5)
[2024-10-09 20:03] LABS: Add Urine Culture? No
[2024-10-09] MEDS: aspirin 325 mg Tablet PO (21:25)
[2024-10-09] MEDS: morphine 4 mg/mL SDV 1 mL 2 MG IVP (21:25)
--- NOTE | 2024-10-09 22:22 | W.ED.BACK ---
HPI - Back Pain/Injury General: Chief Complaint: Back Pain/Injury Stated Complaint: Weakness Time Seen by Provider: 10/09/24 18:35 History of Present Illness: Patient is a 69-year-old female with history of previous CVA with residual left-sided weakness who presents with acute worsening of left-sided weakness and coccyx pain. Patient reports falling last week and was evaluated at [facility] where she was diagnosed with a fractured coccyx. She states that while she had some baseline weakness in her left side from previous strokes, last night her left side became completely flaccid and weak. She presents today with continued pain in her coccyx, spasms in her right groin, and concern over the new left-sided flaccidity. Per discussion with the patient's son, this represents an acute change from her baseline. The son reports that the patient is now completely unable to use her left arm and leg, requiring assistance with feeding and is unable to transfer to bedside commode or complete ADLs independently, which is significantly different from her previous functional status. Related Data Home Medications ?Medication ?Instructions ?Recorded ?Confirmed albuterol sulfate 90 mcg/actuation 2 puff inhalation Q6H PRN 06/06/19 01/17/21 aerosol inhaler Shortness Of Breath azelastine 137 mcg (0.1 %) nasal 1 spray intranasal BID 06/06/19 01/17/21 spray baclofen 10 mg tablet 10 mg PO TID PRN Pain 06/06/19 01/17/21 dulaglutide 1.5 mg/0.5 mL 1 mg SUBCUT Q7D 06/06/19 01/17/21 subcutaneous pen injector (Trulicity) esomeprazole magnesium 40 mg 40 mg PO DAILY 06/06/19 01/17/21 capsule,delayed release (Nexium) lidocaine 5 % topical patch 1 patch topical DAILY 06/06/19 01/17/21 (Lidoderm) linagliptin 5 mg tablet 5 mg PO DAILY 06/06/19 01/17/21 montelukast 10 mg tablet 10 mg PO DAILY 06/06/19 01/17/21 ondansetron HCl 4 mg tablet 4 mg PO Q8H PRN Nausea 06/06/19 01/17/21 oxybutynin chloride 10 mg 10 mg PO DAILY 06/06/19 01/17/21 tablet,extended release 24 hr oxycodone 10 mg tablet 10 mg PO Q8H PRN Pain 06/06/19 01/17/21 insulin detemir U-100 100 unit/mL 40 unit SUBCUT DAILY PRN blood 06/23/19 01/17/21 subcutaneous solution (Levemir sugar U-100 Insulin) ergocalciferol (vitamin D2) 1,250 1,250 mcg PO Q7D 07/30/20 01/17/21 mcg (50,000 unit) capsule furosemide 20 mg tablet (Lasix) 10 - 20 mg PO DAILY PRN Edema 07/30/20 01/17/21 benazepril 20 mg tablet 20 mg PO DAILY 01/11/21 01/17/21 celecoxib 200 mg capsule (Celebrex) 200 mg PO DAILY 01/11/21 01/17/21 tizanidine 4 mg tablet 4 mg PO QID PRN Muscle Pain 01/11/21 01/17/21 Previous Rx's ?Medication ?Instructions ?Recorded [id number] Bone growth stimulator #1 ea 06/26/20 Allergies Allergy/AdvReac Type Severity Reaction Status Date / Time Iodinated Contrast Media Allergy Unknown unknown Verified 10/09/24 18:21 [facility] ED PFS: Medical History Abnormal nuclear stress test (~05/2019) Cervical disc disorder with myelopathy of mid-cervical region CHF (congestive heart failure) Echocardiogram in February 2019 showed an ejection fraction of 60% with no regional wall motion abnormalities though there was grade 1/4 diastolic dysfunction COPD (chronic obstructive pulmonary disease) CVA (cerebral vascular accident) Diabetes mellitus, type II GERD (gastroesophageal reflux disease) History of DVT (deep vein thrombosis) Hypertension Left renal mass Osteoarthritis Spinal stenosis Surgical History History of cataract surgery S/P knee replacement Status post cervical spinal fusion (06/26/19) C4-C7 ACDFF, with C5/C6 corpectomies, OMC. Status post lumbar surgery (07/29/20) 1. L4/5 Interbody fusion with posterolateral fusion 2. L5/S1 Interbody fusion with posterolateral fusion 3. Instrumentation L4-S1 4. Cage at L4/5 5. Cage L5/S1 6. Laminectomy L4 for decomprsion of nerve 7. Laminotomy L5 for decompression of nerve 8. use of autograft from same incision 9. allograft 10. Bone marrow aspirate from Right iliac crest Family History Other CAD (coronary artery disease) Social History Alcohol intake: never Substance/Drug Use: never Lives independently: No Marital status: / Current occupational status: disabled Course Vital Signs: Vital signs: Vital Signs Temperature 98.1 F 10/09/24 18:13 Pulse Rate 69 10/09/24 22:34 Respiratory Rate 16 10/09/24 22:34 Blood Pressure 163/83 10/09/24 22:34 Pulse Oximetry 93 10/09/24 22:34 Oxygen Delivery Me thod Nasal Cannula 10/09/24 21:33 Oxygen Flow Rate 2 10/09/24 21:33 MDM - Back Pain/Injury Medical Decision Making ROS: Constitutional: No fever. HEENT: Hearing deficit with only 25% hearing in right ear. Cardiovascular: No chest pain. Respiratory: No shortness of breath. Musculoskeletal: Positive for left-sided weakness, right groin spasms, and coccyx pain. Neurological: Complete left-sided hemiparesis, worse than baseline. All other systems reviewed and negative or unchanged from baseline. MEDICATIONS AND ALLERGIES: - Meds: Patient mentions taking fluid pills (likely diuretics), specific medications not fully detailed in student assistant - Allergies: No known allergies documented PAST HISTORICAL DATA: - PMH: Previous CVA with residual left-sided weakness - PSH: Back surgery, neck surgery, lumbar fusion at L4-L5-S1 - Social: Lives in an apartment in [place] with grandson VITAL SIGNS: BP: 146/68 HR: 98 RR: 20 Temp: 98.1?F SpO2: 92% on room air PHYSICAL EXAM: General: Obese female, awake, alert, in no acute distress HEENT: Normocephalic, atraumatic. Mucous membranes moist. No facial droop or asymmetry. Neck: Supple Respiratory: No increased work of breathing Cardiovascular: Equal pulses times four Abdomen: Soft and nontender, no guarding Neurological: Complete left-sided hemiparesis affecting left upper and lower extremities. Speech is fluent. No facial droop. Unable to lift left arm or leg. Right-sided strength intact but patient reports spasm in right groin area. INITIAL IMPRESSION AND PLAN: Given the history and presentation, the primary working diagnosis is acute cerebrovascular accident with left-sided hemiparesis. Additional considerations include exacerbation of previous stroke deficits, coccyx fracture with pain, and possible spinal cord compression. Based on this initial impression I will order: 1. CT head without contrast to evaluate for acute intracranial pathology 2. Complete blood count, comprehensive metabolic panel, and urinalysis to assess for infectious or metabolic causes 3. Chest X-ray to rule out pulmonary pathology 4. Neurology consultation for stroke evaluation 5. Pain management for coccyx fracture pain TEST INTERPRETATIONS: Laboratory Results: - WBC: 12.6 (Elevated) - Hemoglobin: 15 - Hematocrit: 46 - Platelets: 306 - Sodium: 131 (Low) - Chloride: 94 - Potassium: 4.4 - Bicarbonate: 21 - BUN: 31 (Elevated) - Creatinine: 1.2 - Glucose: 217 (Elevated) - Urinalysis: Unremarkable Imaging: - Chest X-ray: Negative for acute processes - CT Head: Age-indeterminate, relatively significant area of ischemic change in the medial right frontal lobe Outside Facility Imaging (from 10/02/2024): - CT Cervical Spine: Negative for acute pathology - X-ray Thoracic Spine: Mild anterior wedging of L1 vertebral body (possible mild compression deformity), multilevel mild to moderate degenerative changes, diffuse bone demineralization suggestive of osteopenia/osteoporosis - X-ray Sacrum/Coccyx: Possible nondisplaced or minimally displaced fracture of the inferior aspect of the sacrum - X-ray Lumbar Spine: No identified fracture, Grade 1 retrolisthesis of L3 on L4 (3mm), multilevel mild to moderate degenerative changes, stable posterior fusion of lumbosacral spine at L4-L5-S1, marked atherosclerosis PROCEDURES: No procedures performed during this encounter. CONSIDERED BUT NOT PERFORMED: MRI brain CONSIDERED but NOT DONE due to unavailability at this facility and patient's acute presentation warranting prompt admission for further management. FINAL IMPRESSION: Based on all the above, my clinical impression is most compatible with acute cerebrovascular accident with left-sided hemiparesis, hyponatremia, and coccyx fracture. The clinical picture is not currently suggestive of spinal cord compression, intracranial hemorrhage, or seizure activity. Although other conditions were also considered, they were deemed unlikely based on the clinical information available. CLINICAL DISPOSITION: The patient's current condition is stable but requires inpatient management in my estimation, and the most appropriate and indicated disposition at this time is admission to the hospital under the care of Dr. Iqbal (hospitalist). The patient requires admission due to the acute neurological changes with complete left-sided hemiparesis representing a significant change from baseline. The CT head findings are consistent with subacute ischemic changes that warrant further evaluation and management. Additionally, the patient has hyponatremia and hyperglycemia requiring medical management. The patient is currently unable to perform ADLs independently and requires a higher level of care than can be provided in the outpatient setting. RISK STRATIFICATION AND CLINICAL DECISION RULES APPLIED: No formal clinical decision rules were applied in this case as the patient's presentation with acute neurological deficits and CT findings clearly indicated the need for admission. CASE SUMMARY: 69-year-old female with history of previous CVA with residual left-sided weakness presented with acute worsening of left-sided weakness to complete flaccidity following a fall last week that resulted in a coccyx fracture. Initial evaluation revealed stable vital signs but complete left-sided hemiparesis. Laboratory studies showed leukocytosis, hyponatremia, and hyperglycemia. CT head demonstrated an age-indeterminate area of ischemic change in the medial right frontal lobe. After discussion with the patient's son, it was confirmed that this represents an acute change from baseline with the patient now unable to use her left arm or leg, requiring assistance with feeding and ADLs. I consulted with Dr. Iqbal who agreed to admit the patient for management of acute stroke. The patient was admitted in stable condition for further evaluation and management. Labs I reviewed the patient's lab results. 10/09/24 19:01 10/09/24 19:01 Radiology Impressions Chest X-Ray 10/09/24 18:10 IMPRESSION: No acute findings. Head CT 10/09/24 18:52 IMPRESSION: Age indeterminate relatively significant area of ischemic change medial right frontal lobe. ADDENDUM: 10/09/24 [id number] THIS REPORT CONTAINS FINDINGS THAT MAY BE CRITICAL TO PATIENT CARE. The findings were verbally communicated via telephone conference with DYLAN GARCIA at 9:02 PM CDT on 10/09/2024. The findings were acknowledged and understood. Laboratory Results WBC 12.69 10^3/uL (3.29-11.43) H 10/09/24 19:01 RBC 5.25 10^6/uL (3.85-5.65) 10/09/24 19:01 Hgb 15.70 g/dL (11.27-16.99) 10/09/24 19:01 Hct 46.2 % (36-47) 10/09/24 19:01 MCV 88.0 fl (85-98) 10/09/24 19:01 MCH 29.9 pg (27-33) 10/09/24 19:01 MCHC 34.0 g/dL (30-55) 10/09/24 19:01 RDW 13.8 % (12.1-15.1) 10/09/24 19:01 Plt Count 306 10^3/cmm (157-399) 10/09/24 19:01 MPV 11.9 fL (7.4-10.4) H 10/09/24 19:01 Neut % (Auto) 78.9 % 10/09/24 19:01 Lymph % (Auto) 12.5 % 10/09/24 19:01 Caroline % (Auto) 7.8 % 10/09/24 19:01 Eos % (Auto) 0.0 % 10/09/24 19:01 Baso % (Auto) 0.1 % 10/09/24 19:01 Neut # (Auto) 10.01 10^3/uL (1.8-7.7) H 10/09/24 19:01 Lymph # (Auto) 1.6 10^3/uL (0.8-4.8) 10/09/24 19:01 Caroline # (Auto) 1.0 10^3/uL (0.2-0.9) H 10/09/24 19:01 Eos # (Auto) 0.0 10^3/uL (0.0-0.8) 10/09/24 19:01 Baso # (Auto) 0.0 10^3/uL (0.0-0.1) 10/09/24 19:01 Nucleated RBC % (auto) 0 % 10/09/24 19:01 Nucleated RBCs # 0.0 /100WBC 10/09/24 19:01 Sodium 131 mmol/L (136-145) L 10/09/24 19:01 Potassium 4.4 mmol/L (3.5-5.1) 10/09/24 19:01 Chloride 94 mmol/L (98-107) L 10/09/24 19:01 Carbon Dioxide 21 mmol/L (22-29) L 10/09/24 19:01 Anion Gap 20.4 (5-19) H 10/09/24 19:01 BUN 31 mg/dL (8-23) H 10/09/24 19:01 Creatinine 1.2 mg/dL (0.5-0.9) H 10/09/24 19:01 GFR Calculation 44.5 mL/min (90-130) L 10/09/24 19:01 Glucose 217 mg/dL (65-115) H 10/09/24 19:01 Calculated Osmolality 285 mOsm/kg (285-295) 10/09/24 19:01 Lactic Acid 1.2 mmol/L (0.5-2.2) 10/09/24 19:01 Calcium 9.4 mg/dL (8.5-10.5) 10/09/24 19: Magnesium 2.3 mg/dL (1.7-2.3) 10/09/24 19:01 Total Bilirubin 0.8 mg/dL (0.15-1.2) 10/09/24 19:01 AST 36 U/L (0-32) H 10/09/24 19:01 ALT 37 U/L (0-33) H 10/09/24 19:01 Alkaline Phosphatase 112 U/L (35-105) H 10/09/24 19:01 Total Protein 7.9 g/dL (6.6-8.7) 10/09/24 19:01 Albumin 4.1 g/dL (3.5-5.2) 10/09/24 19:01 Globulin 3.8 g/dL (1.3-4.6) 10/09/24 19:01 Lipase 27 U/L (13-60) 10/09/24 19:01 Urine Color Yellow (Yellow) 10/09/24 19:15 Urine Appearance Clear (CLEAR) 10/09/24 19:15 Urine pH 5.5 (5-7) 10/09/24 19:15 Ur Specific [place] 1.009 (1.005-1.030) 10/09/24 19:15 Urine Protein Negative (Negative) 10/09/24 19:15 Urine Glucose (UA) Negative (Normal) 10/09/24 19:15 Urine Ketones Negative (Negative) 10/09/24 19:15 Urine Blood Negative (Negative) 10/09/24 19:15 Urine Nitrate Negative (Negative) 10/09/24 19:15 Urine Bilirubin Negative (Negative) 10/09/24 19:15 Urine Urobilinogen 1.0 mg/dL (Negative) 10/09/24 19:15 Ur Leukocyte Esterase Negative (Negative) 10/09/24 19:15 Urine RBC 0-2 /hpf (0-2) 10/09/24 19:15 Urine WBC 0-5 /hpf (0-5) 10/09/24 19:15 Ur Squamous Epith Cells 0-5 /hpf (0-5) 10/09/24 19:15 Amorphous Sediment Not Reportable 10/09/24 19:15 Urine Bacteria None seen /hpf (NONE) 10/09/24 19:15 Hyaline Casts 0-4 /lpf H 10/09/24 19:15 All radiology interpretation(s) finalized by discharge Discharge Plan Discharge Patient Disposition: Admitted As Inpatient Clinical Impression: CVA (cerebrovascular accident) Condition: Fair Coding Level of Care Code ED Instructional Specialist for Riley Romero
[2024-10-10] VITALS (10 sets, daily range): BP systolic 87–159; BP diastolic 50–98; PULSE 54–91; RESP 16–18; TEMP 36.3–36.9; O2SAT 89–98; BMI 213.4
--- NOTE | 2024-10-10 00:31 | PM.HP ---
Providers/Chief Complaint Admitting Physician: Jayce Iqbal MD Primary Care Provider: Sari Blankenship DO Chief Complaint: Weakness History of Present Illness Sari Rojas is a 69 year old female with history of stroke 23 years ago is cared for by her grandson who is 20 years old named Fabricio. She had a history of stroke with right-sided weakness and could mobilize in a her wheelchair and ambulate with assistance with a walker. 2 weeks ago she fell out of her wheelchair and went to [facility] treated for but pain T and L-spine of the sacrum pain and compression fracture and coccyx fracture. She was sent home and continued to note left arm and leg weakness. She has not been able to lift or use her left arm. Patient states that 23 years ago she had a stroke and right side has been weak she has had additional strokes since that time but the left side weakness has been more notable than the right for the last 2 weeks 2 years ago she had started to recover and was regaining some of her mobility. Here the patient is a terrible historian also not answering questions interrupting history to eat dinner drink fluids and order her grandson around. Ultimately I left to see another patient returned and grandson was not there. Patient was sleeping peacefully with the TV on. She did arouse was boisterous and verbose but redirected and ultimately did provide the above history. She tells me that she is willing to be admitted for physical therapy but does not want to be an alf. 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 Review of Systems Narrative: General No fevers chills Cardiovascular no chest pain or palpitations Respiratory no shortness of breath cough wheezing GI no nausea vomiting no complaints Neuro send left arm and leg weakness unable to walk unable to use her left arm to feed unable to use it to assist in movement. She is able to push herself with a wheelchair 2 weeks ago now requires her grandson's help and also requires his help to transfer to toilet Medications/Allergies Home Medications ?Medication ?Instructions ?Recorded ?Confirmed ?Last Taken ?Type albuterol sulfate 90 mcg/actuation 2 puff inhalation Q6H PRN 06/06/19 01/17/21 07/28/20 History aerosol inhaler Shortness Of Breath azelastine 137 mcg (0.1 %) nasal 1 spray intranasal BID 06/06/19 01/17/21 07/28/20 History spray baclofen 10 mg tablet 10 mg PO TID PRN Pain 06/06/19 01/17/21 07/28/20 History dulaglutide 1.5 mg/0.5 mL 1 mg SUBCUT Q7D 06/06/19 01/17/21 07/22/20 History subcutaneous pen injector (Trulicity) esomeprazole magnesium 40 mg 40 mg PO DAILY 06/06/19 01/17/21 07/28/20 History capsule,delayed release (Nexium) lidocaine 5 % topical patch 1 patch topical DAILY 06/06/19 01/17/21 07/28/20 History (Lidoderm) linagliptin 5 mg tablet 5 mg PO DAILY 06/06/19 01/17/21 07/28/20 History montelukast 10 mg tablet 10 mg PO DAILY 06/06/19 01/17/21 07/28/20 History ondansetron HCl 4 mg tablet 4 mg PO Q8H PRN Nausea 06/06/19 01/17/21 07/23/20 History oxybutynin chloride 10 mg 10 mg PO DAILY 06/06/19 01/17/21 07/28/20 History tablet,extended release 24 hr oxycodone 10 mg tablet 10 mg PO Q8H PRN Pain 06/06/19 01/17/21 07/28/20 History insulin detemir U-100 100 unit/mL 40 unit SUBCUT DAILY PRN blood 06/23/19 01/17/21 07/08/20 History subcutaneous solution (Levemir sugar U-100 Insulin) E0748 Bone growth stimulator #1 ea 06/26/20 01/17/21 Unknown Rx ergocalciferol (vitamin D2) 1,250 1,250 mcg PO Q7D 07/30/20 01/17/21 Unknown History mcg (50,000 unit) capsule furosemide 20 mg tablet (Lasix) 10 - 20 mg PO DAILY PRN Edema 07/30/20 01/17/21 Unknown History benazepril 20 mg tablet 20 mg PO DAILY 01/11/21 01/17/21 Unknown History celecoxib 200 mg capsule (Celebrex) 200 mg PO DAILY 01/11/21 01/17/21 Unknown History tizanidine 4 mg tablet 4 mg PO QID PRN Muscle Pain 01/11/21 01/17/21 Unknown History Allergies Allergy/AdvReac Type Severity Reaction Status Date / Time Iodinated Contrast Media Allergy Unknown unknown Verified 10/09/24 18:21 PFSH Acute PFSH: Medical History (Updated 10/10/24 @ 00:39 by Jayce Iqbal MD) Lumbar compression fracture Diabetes mellitus, type II Cervical disc disorder with myelopathy of mid-cervical region History of DVT (deep vein thrombosis) Abnormal nuclear stress test (~05/2019) CHF (congestive heart failure) Echocardiogram in February 2019 showed an ejection fraction of 60% with no regional wall motion abnormalities though there was grade 1/4 diastolic dysfunction GERD (gastroesophageal reflux disease) COPD (chronic obstructive pulmonary disease) CVA (cerebral vascular accident) Spinal stenosis Hypertension Left renal mass Osteoarthritis Surgical History Status post lumbar surgery (07/29/20) 1. L4/5 Interbody fusion with posterolateral fusion 2. L5/S1 Interbody fusion with posterolateral fusion 3. Instrumentation L4-S1 4. Cage at L4/5 5. Cage L5/S1 6. Laminectomy L4 for decomprsion of nerve 7. Laminotomy L5 for decompression of nerve 8. use of autograft from same incision 9. allograft 10. Bone marrow aspirate from Right iliac crest Status post cervical spinal fusion (06/26/19) C4-C7 ACDFF, with C5/C6 corpectomies, OMC. History of cataract surgery S/P knee replacement Family History Other CAD (coronary artery disease) Social History Alcohol intake: never Substance/Drug Use: never Lives independently: No Marital status: / Current occupational status: disabled Vitals/I&O/Wt Last Vital Signs Temp 98.1 F 10/09/24 18:13 Pulse 67 10/09/24 23:10 Resp 16 10/09/24 23:10 BP 174/92 10/09/24 23:10 Pulse Ox 93 10/09/24 23:10 O2 Del Method Nasal Cannula 10/09/24 21:33 O2 Flow Rate 2 10/09/24 21:33 Weight last 48 hrs Weight 56.699 kg Physical Exam Narrative: General well-developed well-nourished obese female in no acute cardiopulmonary distress CV regular rate and rhythm with a 4/6 systolic ejection murmur best heard at the right upper sternal border Lungs clear to auscultation in upper lung barroso lower lung barroso difficult to auscultate patient is obese and weak unable to sit up for exam Abdomen positive bowel sounds soft obese nontender Calves no tenderness or asymmetry there is 1+ edema Neuro pupils are equally round and reactive to light accommodation external ocular movements intact right hand 5/5 strength but poor dexterity left hand able to wiggle fingers but not significantly able to open her hand to grasp my fingers for exam. Lower extremities right flexion and extension of the ankle 5/5 left side 4/5 but decreased range of motion Data 10/09/24 19:01 10/09/24 19:01 Micro: Microbiology 10/09/24 19:29 Blood Culture - Preliminary Blood SPECIMEN COLLECTED 10/09/24 19:34 Blood Culture - Preliminary Blood SPECIMEN COLLECTED A&P Assessment and plan (1) CVA (cerebrovascular accident): Patient admitted to the hospital for physical therapy and Occupational Therapy. She declined senior living facility so will be set up for home health. Her's grandson needs additional training (2) Acute kidney injury: Hydrate with normal saline and recheck in the morning hold diuretics for now (3) Diabetes mellitus, type II: Start sliding scale insulin and continue home meds including Lantus and Trulicity (4) GERD (gastroesophageal reflux disease): Continue PPI (5) COPD (chronic obstructive pulmonary disease): Start nicotine patch for half pack per day. Patient smokes half pack per day since age 21 (6) Lumbar compression fracture: Start physical therapy (7) Status post lumbar surgery: As above PDMP PDMP Reviewed: Not Reviewed Attestations Medical Necessity Statement*: Patient is admitted with stroke and acute kidney injury and will require greater than 2 midnights in the hospital Coding Level of Care Code 51933 Diagnoses CVA (cerebrovascular accident) I63.9 Acute kidney injury N17.9 Diabetes mellitus, type II E11.9 GERD (gastroesophageal reflux disease) K21.9 COPD (chronic obstructive pulmonary disease) J44.9 Lumbar compression fracture S32.000A Status post lumbar surgery Z98.890 Time Spent (min) 75
[2024-10-10] MEDS: enoxaparin 40 mg/0.4 mL Syringe SUBCUT (00:49)
[2024-10-10] MEDS: sodium chloride 0.9% 1,000 ML 125 ML IV ×2 (00:50→08:44)
[2024-10-10] MEDS: baclofen 10 mg Tablet PO ×2 (03:09→21:17)
--- NOTE | 2024-10-10 05:38 | PC.NURSE ---
Pt O2 saturation drops to 86-88% on room air while sleeping, pt has been encouraged to wear 2L NC while sleeping but pt refuses, NC at bedside in event pt changes her mind.
--- NOTE | 2024-10-10 06:57 | PC.NURSE ---
THIS NURSE ASSUMED CARE @ 1840.
--- NOTE | 2024-10-10 07:01 | PC.NURSE ---
PATIENT PLACED ON 2 L NC WHILE SLEEPING DUE TO DESATS TO 84%.
[2024-10-10 07:36] LABS: Glucose Point of Care 74 mg/dL (70-110)
--- NOTE | 2024-10-10 07:51 | PC.NURSE ---
PATIENT RESTING IN BED WITH EVEN AND UNLABORED RESPIRATIONS, NO NEEDS AT THIS TIME.
[2024-10-10] MEDS: CELEcoxib 200 mg Capsule PO (08:44)
[2024-10-10] MEDS: lisinopril 20 mg Tablet PO (08:45)
[2024-10-10] MEDS: pantoprazole DR 40 mg Tablet PO (08:45)
[2024-10-10] MEDS: docusate sodium 100 mg Capsule PO ×2 (08:45→17:26)
[2024-10-10] MEDS: lidocaine 5% Patch 1 PATCH TOPICAL (08:45)
[2024-10-10] MEDS: montelukast sodium 10 mg Tablet PO (08:45)
--- NOTE | 2024-10-10 09:25 | PC.NURSE ---
PATIENT TO LETHARGIC TO ANSWER ADMISSION QUESTIONS.
[2024-10-10] MEDS: oxybutynin chloride XL 5 MG TABLET 10 MG PO (09:45)
--- NOTE | 2024-10-10 09:57 | PC.NURSE ---
PATIENT STATES I DON'T TRUST YOU. THE ONLY PERSON I TRUST IS MY GRANDSON. PATIENT STATES CALL MY GRANDSON AND LUKE AND TELL HIM TO GET HERE, OTHERWISE I'M GOING TO RAGING BITCH FROM HELL.
--- NOTE | 2024-10-10 11:11 | PC.NURSE ---
PATIENT PLACED ON BEDPAN TO VOID.
--- NOTE | 2024-10-10 11:19 | PC.NURSE ---
ATTEMPTED TO CALL [facility] FOR PATIENT. NO ANSWER.
[2024-10-10 12:34] LABS: Glucose Point of Care 78 mg/dL (70-110)
--- NOTE | 2024-10-10 12:53 | P.MISC_ITS ---
Miscellaneous Note Purpose of Documentation: Overnight labs and H&P reviewed. Awaiting PT OT assessments. Ongoing disp osition planning.
[2024-10-10 16:47] LABS: Glucose Point of Care 175 mg/dL (70-110)
[2024-10-10] MEDS: insulin lispro 100 unit/1 mL SUBCUT ×2 (17:25→21:16)
[2024-10-10 20:32] LABS: Glucose Point of Care 141 mg/dL (70-110)
[2024-10-10] MEDS: atorvastatin 40 mg Tablet PO (21:17)
[2024-10-11] VITALS (10 sets, daily range): BP systolic 150–172; BP diastolic 68–93; PULSE 55–96; RESP 16–18; TEMP 36.8–37.2; O2SAT 90–97
[2024-10-11] MEDS: enoxaparin 40 mg/0.4 mL Syringe SUBCUT (00:30)
[2024-10-11 06:33] LABS: Glucose Point of Care 87 mg/dL (70-110)
[2024-10-11 06:43] LABS: Estmated Average Glucose 171; Hemoglobin A1C 7.6 % (4.0-6.0)
[2024-10-11 06:48] LABS: Chol HDL Ratio 4.26 mg/dL (0.0-4.40); Cholesterol 145 mg/dL (0-200); HDL Cholesterol 34 mg/dL (60-100); LDL Cholesterol Calculated 93 mg/dL (50-129); LDL HDL Ratio 2.74 RATIO (0.00-3.22); Triglycerides 90 mg/dL (0-150)
[2024-10-11 06:54] LABS: Anion Gap 12.8 (5-19); Blood Urea Nitrogen 25 mg/dL (8-23); Calcium 8.6 mg/dL (8.5-10.5); Carbon Dioxide 23 mmol/L (22-29); Chloride 104 mmol/L (98-107); Glomerular Filtration Rate 49.2 mL/min (90-130); Glucose 79 mg/dL (65-115); Osmolality Calculated 285 mOsm/kg (285-295); Potassium 3.8 mmol/L (3.5-5.1); Sodium 136 mmol/L (136-145); Thyroid Stimulating Hormone 0.76 uIU/mL (0.27-4.20)
--- NOTE | 2024-10-11 09:34 | PC.NURSE ---
treatment coordinator rounds at 0830- gave patient and caregivers (grandson/home health nurse present) stroke education book. Dr. Petersen came in and assessed patient as well. Patient has severe left sided weakness. Recommended rehab for 2 weeks by and patient agreed to that, but not permanent placement.
[2024-10-11] MEDS: docusate sodium 100 mg Capsule PO ×2 (09:41→17:32)
[2024-10-11] MEDS: lisinopril 20 mg Tablet PO (09:41)
[2024-10-11] MEDS: pantoprazole DR 40 mg Tablet PO (09:42)
[2024-10-11] MEDS: oxybutynin chloride XL 5 MG TABLET 10 MG PO (09:42)
[2024-10-11] MEDS: montelukast sodium 10 mg Tablet PO (09:43)
[2024-10-11] MEDS: CELEcoxib 200 mg Capsule PO (09:43)
[2024-10-11] MEDS: lidocaine 5% Patch 1 PATCH TOPICAL (09:43)
[2024-10-11] MEDS: aspirin 81 mg EC Tablet PO (09:43)
[2024-10-11] MEDS: tizanidine 4 mg Tablet PO ×2 (09:51→19:35)
[2024-10-11 12:00] LABS: Glucose Point of Care 222 mg/dL (70-110)
[2024-10-11] MEDS: insulin lispro 100 unit/1 mL SUBCUT ×2 (12:43→22:02)
--- NOTE | 2024-10-11 14:45 | PM.PN ---
Subjective Subjective: Patient is awake alert and oriented x 3. Denies any complaints today. Medications: Reviewed: Yes Vitals/I&O/Wt Last Vital Signs Temp 99 F 10/11/24 11:59 Pulse 87 10/11/24 11:59 Resp 16 10/11/24 11:59 BP 150/75 10/11/24 11:59 Pulse Ox 97 10/11/24 11:59 O2 Del Method Room Air 10/11/24 11:59 O2 Flow Rate 90 10/11/24 04:00 10/10/24 10/11/24 10/11/24 22:59 06:59 14:59 Intake Total 960 / 960 Balance 960 / 960 Weight last 48 hrs Weight 80.314 kg Weight 529.371 kg Weight 56.699 kg Physical Exam Narrative: General: No acute distress, AO x3, chronically ill-appearing HEENT: PERRLA, pupils bilaterally equal and reactive, pallors not present Chest: Normal vesicular breath sounds, no added sounds, equal good air entry bilaterally CVS: S1-S2 regular, no murmurs, no tachycardia, no gallops, no rubs Abdomen: Soft, nontender, no organomegaly, bowel sounds present Neuro: Unable to lift left upper and lower extremity off the bed. Patient states this is new over the past 2 weeks. Previously her right side was still weaker side. Power is 4 out of 5 on the right side. Data 10/09/24 19:01 10/11/24 05:45 Micro: Microbiology 10/09/24 19:34 Blood Culture - Preliminary Blood NEGATIVE TO DATE 10/09/24 19:29 Blood Culture - Preliminary Blood NEGATIVE TO DATE A&P Assessment and plan (1) CVA (cerebrovascular accident): Patient admitted to the hospital for physical therapy and Occupational Therapy. She declined custodial facility so will be set up for home health. Her's grandson needs additional training (2) Acute kidney injury: Hydrate with normal saline and recheck in the morning hold diuretics for now (3) Diabetes mellitus, type II: Start sliding scale insulin and continue home meds including Lantus and Trulicity (4) GERD (gastroesophageal reflux disease): Continue PPI (5) COPD (chronic obstructive pulmonary disease): Start nicotine patch for half pack per day. Patient smokes half pack per day since age 21 (6) Lumbar compression fracture: Start physical therapy (7) Status post lumbar surgery: As above Plan October 11, 2024 Patient has suffered from a stroke resulting in new left-sided weakness over the past 2 weeks. She is cared for at home by her grandson. Typically she is able to pivot herself out of bed and perform some ADLs, however currently has weakened as a result of the new stroke. She would likely benefit from rehab. Evaluated by physical therapy patient noted to require maximum to total assistance with a two-person assist. She was unable to stand due to a weak right lower extremity and a nonfunctional left extremity. She exhibited poor balance, decreased strength and coordination and poor head trunk control along with decreased endurance on OT assessment. Awaiting speech therapy assessment and recommendations. Continue aspirin 81 mg daily, atorvastatin 40 mg daily, continue lisinopril. Discussed appropriate disposition planning with patient. Discussed with her that she would likely benefit from rehab. She states that she would be willing to transition to SNF for the short-term for rehab, had previously refused as she was under the impression this meant a permanent transition to SNF. [place] currently reveiwing referrals. PDMP PDMP Reviewed: Not Reviewed Attestations Medical Necessity Statement*: ongoing disposition planning Coding Level of Care Code Acute Code for Chg Fwd Moderate MDM includes number and complexity of problems actively addressed during encounter, amount and/or complexity of data reviewed/ordered and described risk of complication, morbidity or mortality of management as documented Diagnoses CVA (cerebrovascular accident) I63.9 Acute kidney injury N17.9 Diabetes mellitus, type II E11.9 GERD (gastroesophageal reflux disease) K21.9 COPD (chronic obstructive pulmonary disease) J44.9 Lumbar compression fracture S32.000A Status post lumbar surgery Z98.890
[2024-10-11 16:42] LABS: Glucose Point of Care 79 mg/dL (70-110)
[2024-10-11 20:36] LABS: Glucose Point of Care 205 mg/dL (70-110)
[2024-10-11] MEDS: atorvastatin 40 mg Tablet PO (22:02)
[2024-10-12] VITALS (10 sets, daily range): BP systolic 124–169; BP diastolic 69–78; PULSE 63–91; RESP 16–18; TEMP 36.6–37.2; O2SAT 92–96
[2024-10-12] MEDS: enoxaparin 40 mg/0.4 mL Syringe SUBCUT ×2 (00:28→23:37)
[2024-10-12 06:30] LABS: Glucose Point of Care 104 mg/dL (70-110)
[2024-10-12] MEDS: lidocaine 5% Patch 1 PATCH TOPICAL (08:12)
[2024-10-12] MEDS: tizanidine 4 mg Tablet PO ×2 (08:12→17:00)
[2024-10-12] MEDS: oxybutynin chloride XL 5 MG TABLET 10 MG PO (08:12)
[2024-10-12] MEDS: pantoprazole DR 40 mg Tablet PO (08:13)
[2024-10-12] MEDS: aspirin 81 mg EC Tablet PO (08:13)
[2024-10-12] MEDS: docusate sodium 100 mg Capsule PO ×2 (08:13→17:00)
[2024-10-12] MEDS: lisinopril 20 mg Tablet PO (08:13)
[2024-10-12] MEDS: CELEcoxib 200 mg Capsule PO (08:13)
[2024-10-12] MEDS: montelukast sodium 10 mg Tablet PO (08:13)
[2024-10-12] MEDS: oxyCODONE 5 mg IR Tab/Cap 10 MG PO ×2 (09:38→17:00)
[2024-10-12 11:15] LABS: Glucose Point of Care 193 mg/dL (70-110)
[2024-10-12] MEDS: insulin lispro 100 unit/1 mL SUBCUT (11:31)
[2024-10-12] MEDS: baclofen 10 mg Tablet PO (13:00)
[2024-10-12] MEDS: acetaminophen 325 mg Tablet 650 MG PO (14:58)
--- NOTE | 2024-10-12 16:02 | PM.PN ---
Subjective Subjective: No new complaints today. Patient is awaiting appropriate disposition planning. Participating with PT OT and speech therapy when seen. Medications: Reviewed: Yes Vitals/I&O/Wt Last Vital Signs Temp 98.5 F 10/12/24 15:51 Pulse 70 10/12/24 15:51 Resp 18 10/12/24 15:51 BP 159/77 10/12/24 15:51 Pulse Ox 96 10/12/24 15:51 O2 Del Method Room Air 10/12/24 15:51 O2 Flow Rate 2 10/12/24 09:30 10/12/24 10/12/24 10/12/24 06:59 14:59 22:59 Intake Total 480 / 1920 960 / 960 Balance 480 / 1920 960 / 960 Weight last 48 hrs Weight 79.832 kg Weight 80.314 kg Physical Exam Narrative: General: No acute distress, AO x3, chronically ill-appearing HEENT: PERRLA, pupils bilaterally equal and reactive, pallors not present Chest: Normal vesicular breath sounds, no added sounds, equal good air entry bilaterally CVS: S1-S2 regular, no murmurs, no tachycardia, no gallops, no rubs Abdomen: Soft, nontender, no organomegaly, bowel sounds present Neuro: Unable to lift left upper and lower extremity off the bed. Patient states this is new over the past 2 weeks. Previously her right side was still weaker side. Power is 4 out of 5 on the right side. Data 10/09/24 19:01 10/11/24 05:45 A&P Assessment and plan (1) CVA (cerebrovascular accident): Patient admitted to the hospital for physical therapy and Occupational Therapy. She declined long-term facility so will be set up for home health. Her's grandson needs additional training (2) Acute kidney injury: Hydrate with normal saline and recheck in the morning hold diuretics for now (3) Diabetes mellitus, type II: Start sliding scale insulin and continue home meds including Lantus and Trulicity (4) GERD (gastroesophageal reflux disease): Continue PPI (5) COPD (chronic obstructive pulmonary disease): Start nicotine patch for half pack per day. Patient smokes half pack per day since age 21 (6) Lumbar compression fracture: Start physical therapy (7) Status post lumbar surgery: As above Plan October 11, 2024 Patient has suffered from a stroke resulting in new left-sided weakness over the past 2 weeks. She is cared for at home by her grandson. Typically she is able to pivot herself out of bed and perform some ADLs, however currently has weakened as a result of the new stroke. She would likely benefit from rehab. Evaluated by physical therapy patient noted to require maximum to total assistance with a two-person assist. She was unable to stand due to a weak right lower extremity and a nonfunctional left extremity. She exhibited poor balance, decreased strength and coordination and poor head trunk control along with decreased endurance on OT assessment. Awaiting speech therapy assessment and recommendations. Continue aspirin 81 mg daily, atorvastatin 40 mg daily, continue lisinopril. Discussed appropriate disposition planning with patient. Discussed with her that she would likely benefit from rehab. She states that she would be willing to transition to SNF for the short-term for rehab, had previously refused as she was under the impression this meant a permanent transition to SNF. [place] currently reveiwing referrals. October 12, 2024 Patient is participating currently with PT OT and speech therapy at the time of this assessment. Continue aspirin atorvastatin. Increase lisinopril to 40 mg p.o. daily. Awaiting authorization for transition to SNF, ongoing appropriate disposition planning. PDMP PDMP Reviewed: Not Reviewed Attestations Medical Necessity Statement*: Ongoing disposition planning Coding Level of Care Code Acute Code for Chg Fwd Diagnoses CVA (cerebrovascular accident) I63.9 Acute kidney injury N17.9 Diabetes mellitus, type II E11.9 GERD (gastroesophageal reflux disease) K21.9 COPD (chronic obstructive pulmonary disease) J44.9 Lumbar compression fracture S32.000A Status post lumbar surgery Z98.890
[2024-10-12 16:35] LABS: Glucose Point of Care 131 mg/dL (70-110)
[2024-10-12] MEDS: atorvastatin 40 mg Tablet PO (20:28)
[2024-10-12 20:43] LABS: Glucose Point of Care 165 mg/dL (70-110)
[2024-10-13] VITALS (9 sets, daily range): BP systolic 145–171; BP diastolic 70–82; PULSE 66–77; RESP 15–18; TEMP 36.7–36.8; O2SAT 91–96
[2024-10-13 06:37] LABS: Basophils # 0.1 10^3/uL (0.0-0.1); Basophils % 0.6 %; Eosinophils # 0.1 10^3/uL (0.0-0.8); Hematocrit 42.1 % (36-47); Lymphocytes # 2.9 10^3/uL (0.8-4.8); Lymphocytes % 23.5 %; Mean Corpuscular Hemoglobin 29.1 pg (27-33); Mean Corpuscular Volume 88.3 fl (85-98); Mean Platelet Volume 12.3 fL (7.4-10.4); Monocytes # 1.6 10^3/uL (0.2-0.9); Monocytes % 12.8 %; Neutrophils # 7.56 10^3/uL (1.8-7.7); Neutrophils % 61.4 %; Nucleated Red Blood Cells % 0 %; Platelet Count 256 10^3/cmm (157-399); Red Blood Count 4.77 10^6/uL (3.85-5.65); Red Cell Distribution Width 14.1 % (12.1-15.1)
[2024-10-13 06:47] LABS: Glucose Point of Care 127 mg/dL (70-110)
[2024-10-13 07:05] LABS: Alanine Aminotransferase 27 U/L (0-33); Albumin Level 3.1 g/dL (3.5-5.2); Alkaline Phosphatase 110 U/L (35-105); Aspartate Amino Transferase 28 U/L (0-32); Blood Urea Nitrogen 20 mg/dL (8-23); Calcium 8.7 mg/dL (8.5-10.5); Carbon Dioxide 18 mmol/L (22-29); Chloride 104 mmol/L (98-107); Globulin 3.2 g/dL (1.3-4.6); Glomerular Filtration Rate 62.1 mL/min (90-130); Glucose 119 mg/dL (65-115); Osmolality Calculated 284 mOsm/kg (285-295); Sodium 135 mmol/L (136-145); Total Bilirubin 0.8 mg/dL (0.15-1.2); Total Protein 6.3 g/dL (6.6-8.7)
[2024-10-13 07:07] LABS: Anion Gap 17.4 (5-19); Potassium 4.4 mmol/L (3.5-5.1)
[2024-10-13] MEDS: pantoprazole DR 40 mg Tablet PO (07:55)
[2024-10-13] MEDS: montelukast sodium 10 mg Tablet PO (07:55)
[2024-10-13] MEDS: tizanidine 4 mg Tablet PO ×2 (07:55→15:15)
[2024-10-13] MEDS: CELEcoxib 200 mg Capsule PO (07:55)
[2024-10-13] MEDS: lisinopril 20 mg Tablet 40 MG PO (07:55)
[2024-10-13] MEDS: aspirin 81 mg EC Tablet PO (07:56)
[2024-10-13] MEDS: oxybutynin chloride XL 5 MG TABLET 10 MG PO (07:56)
[2024-10-13] MEDS: oxyCODONE 5 mg IR Tab/Cap 10 MG PO ×2 (07:56→15:15)
[2024-10-13] MEDS: lidocaine 5% Patch 1 PATCH TOPICAL (07:57)
[2024-10-13] MEDS: docusate sodium 100 mg Capsule PO (07:57)
[2024-10-13 09:50] LABS: SARS Covid-2 Antigen Negative (Negative)
[2024-10-13 11:11] LABS: Glucose Point of Care 159 mg/dL (70-110)
[2024-10-13] MEDS: insulin lispro 100 unit/1 mL SUBCUT (12:41)
--- NOTE | 2024-10-13 13:00 | PC.SOCIAL ---
IMM Update pg 2 of IMM updated and reviewed w/ patient. Copy provided and copy dated, initialed and placed in chart.
--- NOTE | 2024-10-13 15:49 | PM.DCS ---
Discharge Providers Date of Admission: 10/09/24 22:22 Date of Discharge: October 13, 2024 Attending Provider at Admission: Jayce Iqbal MD Attending Provider at Discharge: Anamaria Petersen MD Primary Care Provider: Sari Blankenship DO Diagnoses at Discharge Discharge Diagnosis (1) CVA (cerebrovascular accident): Status: Acute (2) Acute kidney injury: Status: Acute (3) Diabetes mellitus, type II: Status: Chronic (4) GERD (gastroesophageal reflux disease): Status: Chronic (5) COPD (chronic obstructive pulmonary disease): Status: Chronic (6) Lumbar compression fracture: Status: Acute (7) Status post lumbar surgery: Status: Acute Reason for Visit Reason for Visit: Weakness Hospital Course Hospital Course Sari Rojas is a 69 year old female with history of stroke 23 years ago is cared for by her grandson. She had a history of stroke with right-sided weakness and could mobilize in a her wheelchair and ambulate with assistance with a walker. 2 weeks ago she fell out of her wheelchair and went to [facility] treated for but pain T and L-spine of the sacrum pain and compression fracture and coccyx fracture. She was sent home and continued to note left arm and leg weakness. She has not been able to lift or use her left arm. Head CT was performed which showed age-indeterminate relatively significant area of ischemic change in the medial right frontal lobe. She was admitted in view of CVA, therapy assessments. She was started on aspirin 81 mg p.o. daily, atorvastatin 40 mg p.o. daily and continued on her usual other medications. She was evaluated by physical therapy during treatment course, was noted to be a maximum to total two-person assist. She was unable to stand due to weak right lower extremity and nonfunctional left lower extremity. PT recommended residential long-term due to long-term mobility issues.She was admitted for CVA placement was attempted into [facility] facility, however this was declined by insurance. [id number] was completed, however decision remained to decline placement at SNF. Patient is being discharged today in her versus baseline state of health, acutely worsened over the past 2 weeks due to stroke and fall. Hospital bed has been ordered at the time of discharge in keeping with her significant mobility restrictions. Physical Exam Narrative: General: No acute distress, AO x3 HEENT: PERRLA, pupils bilaterally equal and reactive, pallors not present Chest: Normal vesicular breath sounds, no added sounds, equal good air entry bilaterally CVS: S1-S2 regular, no murmurs, no tachycardia, no gallops, no rubs Abdomen: Soft, nontender, no organomegaly, bowel sounds present Neuro: Flaccid LUE and LLE, RUE 4/5, RLE 3/5 Discharge Data Studies Completed and Pending Completed Studies During Hospitalization Category Date Time Status CT head wo con* [id number] Stat Cat Scan 10/09/24 18:52 Completed XR chest 1V portable [id number] Stat Exams 10/09/24 18:10 Completed Pending at discharge Category Date Time Status Blood Culture Stat Lab 10/09/24 19:29 Results Radiology Impressions Chest X-Ray 10/09/24 18:10 IMPRESSION: No acute findings. Head CT 10/09/24 18:52 IMPRESSION: Age indeterminate relatively significant area of ischemic change medial right frontal lobe. ADDENDUM: 10/09/242103 THIS REPORT CONTAINS FINDINGS THAT MAY BE CRITICAL TO PATIENT CARE. The findings were verbally communicated via telephone conference with DYLAN GARCIA at 9:02 PM CDT on 10/09/2024. The findings were acknowledged and understood. Laboratory Results WBC 12.30 10^3/uL (3.29-11.43) H 10/13/24 05:48 RBC 4.77 10^6/uL (3.85-5.65) 10/13/24 05:48 Hgb 13.90 g/dL (11.27-16.99) 10/13/24 05:48 Hct 42.1 % (36-47) 10/13/24 05:48 MCV 88.3 fl (85-98) 10/13/24 05:48 MCH 29.1 pg (27-33) 10/13/24 05:48 MCHC 33.0 g/dL (30-55) 10/13/24 05:48 RDW 14.1 % (12.1-15.1) 10/13/24 05:48 Plt Count 256 10^3/cmm (157-399) 10/13/24 05:48 MPV 12.3 fL (7.4-10.4) H 10/13/24 05:48 Neut % (Auto) 61.4 % 10/13/24 05:48 Lymph % (Auto) 23.5 % 10/13/24 05:48 [place] % (Auto) 12.8 % 10/13/24 05:48 Eos % (Auto) 1.0 % 10/13/24 05:48 Baso % (Auto) 0.6 % 10/13/24 05:48 Neut # (Auto) 7.56 10^3/uL (1.8-7.7) 10/13/24 05:48 Lymph # (Auto) 2.9 10^3/uL (0.8-4.8) 10/13/24 05:48 [place] # (Auto) 1.6 10^3/uL (0.2-0.9) H 10/13/24 05:48 Eos # (Auto) 0.1 10^3/uL (0.0-0.8) 10/13/24 05:48 Baso # (Auto) 0.1 10^3/uL (0.0-0.1) 10/13/24 05:48 Nucleated RBC % (auto) 0 % 10/13/24 05:48 Nucleated RBCs # 0.0 /100WBC 10/13/24 05:48 Sodium 135 mmol/L (136-145) L 10/13/24 05:48 Potassium 4.4 mmol/L (3.5-5.1) 10/13/24 05:48 Chloride 104 mmol/L (98-107) 10/13/24 05:48 Carbon Dioxide 18 mmol/L (22-29) L 10/13/24 05:48 Anion Gap 17.4 (5-19) 10/13/24 05:48 BUN 20 mg/dL (8-23) 10/13/24 05:48 Creatinine 0.9 mg/dL (0.5-0.9) 10/13/24 05:48 GFR Calculation 62.1 mL/min (90-130) L 10/13/24 05:48 Glucose 119 mg/dL (65-115) H 10/13/24 05:48 POC Glucose 159 mg/dL (70-110) H 10/13/24 11:06 Estimat Average Glucose 171 10/11/24 05:45 Hemoglobin A1c 7.6 % (4.0-6.0) H 10/11/24 05:45 Calculated Osmolality 284 mOsm/kg (285-295) L 10/13/24 05:48 Lactic Acid 1.2 mmol/L (0.5-2.2) 10/09/24 19:01 Calcium 8.7 mg/dL (8.5-10.5) 10/13/24 05:48 Magnesium 2.3 mg/dL (1.7-2.3) 10/09/24 19:01 Total Bilirubin 0.8 mg/dL (0.15-1.2) 10/13/24 05:48 AST 28 U/L (0-32) 10/13/24 05:48 ALT 27 U/L (0-33) 10/13/24 05:48 Alkaline Phosphatase 110 U/L (35-105) H 10/13/24 05:48 Total Protein 6.3 g/dL (6.6-8.7) L 10/13/24 05:48 Albumin 3.1 g/dL (3.5-5.2) L 10/13/24 05:48 Globulin 3.2 g/dL (1.3-4.6) 10/13/24 05:48 Triglycerides 90 mg/dL (0-150) 10/11/24 05:45 Cholesterol 145 mg/dL (0-200) 10/11/24 05:45 LDL Cholesterol, Calc 93 mg/dL (50-129) 10/11/24 05:45 HDL Cholesterol 34 mg/dL (60-100) L 10/11/24 05:45 LDL/HDL Ratio 2.74 RATIO (0.00-3.22) 10/11/24 05:45 Cholesterol/HDL Ratio 4.26 mg/dL (0.0-4.40) 10/11/24 05:45 Lipase 27 U/L (13-60) 10/09/24 19:01 TSH 0.76 uIU/mL (0.27-4.20) 10/11/24 05:45 Urine Color Yellow (Yellow) 10/09/24 19:15 Urine Appearance Clear (CLEAR) 10/09/24 19:15 Urine pH 5.5 (5-7) 10/09/24 19:15 Ur Specific [place] 1.009 (1.005-1.030) 10/09/24 19:15 Urine Protein Negative (Negative) 10/09/24 19:15 Urine Glucose (UA) Negative (Normal) 10/09/24 19:15 Urine Ketones Negative (Negative) 10/09/24 19:15 Urine Blood Negative (Negative) 10/09/24 19:15 Urine Nitrate Negative (Negative) 10/09/24 19:15 Urine Bilirubin Negative (Negative) 10/09/24 19:15 Urine Urobilinogen 1.0 mg/dL (Negative) 10/09/24 19:15 Ur Leukocyte Esterase Negative (Negative) 10/09/24 19:15 Urine RBC 0-2 /hpf (0-2) 10/09/24 19:15 Urine WBC 0-5 /hpf (0-5) 10/09/24 19:15 Ur Squamous Epith Cells 0-5 /hpf (0-5) 10/09/24 19:15 Amorphous Sediment Not Reportable 10/09/24 19:15 Urine Bacteria None seen /hpf (NONE) 10/09/24 19:15 Hyaline Casts 0-4 /lpf H 10/09/24 19:15 SARS-CoV-2 Ag (Rapid) Negative (Negative) 10/13/24 08:56 Vitals Last Vital Signs Temp 98.3 F 10/13/24 15:30 Pulse 66 10/13/24 15:30 Resp 16 10/13/24 15:30 BP 171/80 10/13/24 15:30 Pulse Ox 91 10/13/24 15:30 O2 Del Method Room Air 10/13/24 08:59 O2 Flow Rate 2 10/12/24 20:00 Discharge Plan Discharge Patient Disposition: Home Condition: Fair Prescriptions: New aspirin 81 mg Tablet,Delayed Release (Dr/Ec) 81 mg PO DAILY Qty: 30 0RF atorvastatin 40 mg Tablet 40 mg PO BEDTIME 30 Days Qty: 30 0RF baclofen 10 mg Tablet 10 mg PO TID PRN (Reason: Pain) 30 Days Qty: 90 0RF Continued oxycodone 10 mg tablet 10 mg PO Q8H PRN (Reason: Pain) lidocaine [Lidoderm] 5 % adhesive patch,medicated 1 patch TOPICAL DAILY Rx Instructions: 12 HOURS ON THEN 12 HOURS OFF oxybutynin chloride 10 mg tablet extended release 24hr 10 mg PO QAM esomeprazole magnesium [Nexium] 40 mg capsule,delayed release(DR/EC) 40 mg PO DAILY montelukast 10 mg tablet 10 mg PO DAILY furosemide [Lasix] 20 mg Tablet 10 - 20 mg PO DAILY PRN (Reason: Edema) tizanidine 4 mg Tablet 4 mg PO QID PRN (Reason: Muscle Pain) benazepril 20 mg Tablet 20 mg PO DAILY levothyroxine 50 mcg tablet 50 mcg PO DAILY bumetanide 1 mg tablet 1 mg PO DAILY Coricidin HBP Cold and Flu 2-325 mg Tablet 2 tab PO Q6H PRN (Reason: Flu Symptoms) diclofenac sodium 1 % gel 2 g TOPICAL QID Tradjenta 5 mg tablet 5 mg PO DAILY fluticasone propionate 50 mcg/actuation spray,suspension 2 spray INTRANASAL DAILY naloxone [Narcan] 4 mg/actuation [place],Non-Aerosol 4 mg INTRANASAL Q3M PRN (Reason: OVERDOSE) Rx Instructions: spray 1 dose into ONE nostril; alternate nostrils w each dose until help arrives prednisone 20 mg tablet 20 mg PO BID Trulicity 4.5 mg/0.5 mL pen injector 4.5 mg SUBCUT Q7D Discontinued (DME) E0748 Bone growth stimulator See Rx Instructions .Route .MEDSUPPLY Qty: 1 0RF Rx Instructions: As directed Discharge Orders: Discharge Order (Routine); Ordered 10/13/24 Ordered By: Anamaria Petersen Other Ambulatory Orders: DME: Hospital Bed (Order) Location: None Selected Ordered By: Anamaria Petersen Referrals: [facility] Home Care ([facility]) [Outside] Sari Blankenship DO [Primary Care Provider, [facility]] - 10/17/24 3:00 pm Patient Instructions: Acute Kidney Injury (DC), Ischemic Stroke (DC), Self Care Measures After a Stroke (DC), Procedures for Compression Fractures of the Spine (DC), Opioid Safety, Stroke Stoplight, Patient Portal & Heide Instructions Discharge Attestations Time Spent in Discharge Care*: greater than 30 min Quality Metrics Clinical Quality Measures [ Cerebrovascular Accident { Contraindication to Antithrombotic: None; antithrombotic prescribed; Contraindication to Anticoagulation: Overlap treatment not indicated; Contraindication to Statin: None; Statin prescribed;}] Coding Level of Care Code Acute Code for [facility] Diagnoses CVA (cerebrovascular accident) I63.9 Acute kidney injury N17.9 Diabetes mellitus, type II E11.9 GERD (gastroesophageal reflux disease) K21.9 COPD (chronic obstructive pulmonary disease) J44.9 Lumbar compression fracture S32.000A Status post lumbar surgery Z98.890
== END 2024-10-13 15:31 | disposition home or self-care (01) | DRG 65 ==
LOC: ER 22:54 → ER IP 23:02 → MEDSURG 10-10 11:06
PROVIDERS: Emergency Medicine; Admitting Provider Internal Medicine; Emergency Provider Student in an Organized Health Care Education/Training Program; PCP Family Medicine; Visit Provider Student in an Organized Health Care Education/Training Program
DX: I63.9 Cerebral infarction, unspecified (principal); G81.94 Hemiplegia, unspecified affecting left nondominant side; S32.2XXA Fracture of coccyx, initial encounter for closed fracture; N17.9 Acute kidney failure, unspecified; I69.351 Hemiplegia and hemiparesis f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; E11.9 Type 2 diabetes mellitus without complications; K21.9 Gastro-esophageal reflux disease without esophagitis; J44.9 Chronic obstructive pulmonary disease, unspecified; W05.0XXA Fall from non-moving wheelchair, initial encounter; I10 Essential (primary) hypertension; Z79.891 Long term (current) use of opiate analgesic; Z79.85 Long-term (current) use of injectable non-insulin antidiabetic drugs; Z79.82 Long term (current) use of aspirin; Z98.1 Arthrodesis status; Z86.718 Personal history of other venous thrombosis and embolism
CPT/HCPCS: 36415; 36416; 70450; 71045; 80048; 80053; 80061; 81001; 82962; 83036; 83605; 83690; 83735; 84443; 85025; 87040; 87426; 92507; 92523; 92526; 92610; 93005; 96372; 96374; 97161; 97167; 97530; 97535; 99285; J1650; J1815; J2270; J7030; J9999

== ENCOUNTER 2024-10-17 11:36 | Observation (INO) | payer OTHER, MEDICAID, SELFPAY ==
[2024-10-17] VITALS (10 sets, daily range): BP systolic 101–158; BP diastolic 56–97; PULSE 88–103; RESP 18–20; TEMP 36.4–37.4; O2SAT 93–99; BMI 29.2
--- OUTSIDE RECORDS SUMMARY | 2024-10-17 11:42 | XMS_ITS | Clinical Summary ---
Author Organization [facility] Address [address] [address] Phone Care Team Providers Care Staff Interpreter Name Role Phone Sari Blankenship DO Primary Care Provider Allergies Active Allergy Reactions Criticality Noted Date Comments Apixaban Rash Low 03/02/2019 Pregabalin Other (See Comments) 08/18/2018 couldn't walk Gaulqxx-Pyg-Fvp Reductase Inhibitors Muscle Pain Low 10/13/2020 She reports she has tried lipitor and many others and she won't take these anymore Medications insulin detemir U-100 (LEVEMIR) 100 unit/mL pen syringeIndication s:Type 2 diabetes mellitus with diabetic polyneuropathy, with long-term current use of insulin ([facility]) Inject 40 Units by subcutaneous injection daily with breakfast. 15 mL 6 03/09/20 19 Active aspirin (DOREEN CHEWABLE) 81 mg Tablet, Chewable Take 81 mg by mouth daily. Active DULoxetine (Cymbalta) 30 mg Capsule, Delayed Release(E.C.)Rylee cations:Generaliz ed anxiety disorder Take 1 Capsule (30 mg) by mouth daily. 90 Capsule 10/12/19 20 Active ergocalciferol (VITAMIN D2) 50,000 unit capsuleIndication s:Vitamin D insufficiency Take 1 Capsule (50,000 Units) by mouth every 2 weeks. 6 Capsule 4 10/12/19 20 Active Trulicity 1.5 mg/0.5 mL injection ADMINISTER 0.5 ML UNDER THE SKIN EVERY 7 DAYS 2 mL 5 02/12/20 20 Active lancets (Accu-Chek Fastclix Lancet Drum)Indications: Type 2 diabetes mellitus with diabetic polyneuropathy, with long-term current use of insulin ([facility]) USE TO CHECK BLOOD SUGAR THREE TIMES DAILY. 204 Each 06/28/19 21 Active ketoconazole (NIZORAL) 2 % CreamIndications: Onychomycosis APPLY EXTERNALLY TO THE AFFECTED AREA DAILY 60 Gram 2 07/05/19 21 Active azelastine (OPTIVAR) 0.05 % solution Administer 1 Drop in both eyes 2 times daily. 6 mL 1 07/05/19 21 Active oxybutynin chloride (DITROPAN XL) 10 mg Extended Release 24 hour tabletIndications :Mixed stress and urge urinary incontinence TAKE 1 TABLET(10 MG) BY MOUTH DAILY 90 Tablet 3 08/22/19 21 Active blood sugar diagnostic Strip Use to check blood sugar TID. DX: E11.2, N18.31 100 Each 09/19/19 Active doxycycline hyclate (VIBRAMYCIN) 100 mg tabletIndications :Acute non-recurrent maxillary sinusitis Take 1 Tablet (100 mg) by mouth 2 times daily. 20 Tablet 10/04/19 21 Active oxyCODONE (ROXICODONE) 10 mg tabletIndications :Chronic midline low back pain with bilateral sciatica Take 1 Tablet (10 mg) by mouth 3 times daily as needed for Pain, Moderate. Max Daily Amount: 30 mg 90 Tablet 10/04/19 21 Active oxyCODONE (ROXICODONE) 10 mg tabletIndications :Chronic midline low back pain with bilateral sciatica Take 1 Tablet (10 mg) by mouth 3 times daily as needed for Pain, Moderate. Do not fill until 11/02/2020 Max Daily Amount: 30 mg 90 Tablet 10/04/19 21 Active oxyCODONE (ROXICODONE) 10 mg tabletIndications :Chronic midline low back pain with bilateral sciatica Take 1 Tablet (10 mg) by mouth 3 times daily as needed for Pain, Moderate. Do not fill until 12/06/2020 Max Daily Amount: 30 mg 90 Tablet 10/04/19 21 Active esomeprazole (NexIUM) 40 mg Capsule, Delayed Release(E.C.) TAKE 1 CAPSULE(40 MG) BY MOUTH DAILY 90 Capsule 4 10/15/19 21 Active furosemide (LASIX) 20 mg tabletIndications :Leg swelling Take 1/1 to 1 tab daily as needed for leg swelling 90 Tablet 4 10/15/19 21 Active benazepriL (LOTENSIN) 20 mg tablet Take 1 Tablet (20 mg) by mouth daily. 90 Tablet 4 10/15/19 21 Active albuterol HFA 90 mcg inhaler INHALE 2 PUFFS BY MOUTH EVERY 6 HOURS NEEDED FOR SHORTNESS OF BREATH 25.5 Gram 10/15/19 21 Active fluticasone propionate (FLONASE) 50 mcg/spray Strum, Suspension nasal inhaler Administer 2 Sprays in each nostril daily. 16 Gram 10/15/19 21 Active tiZANidine (ZANAFLEX) 4 mg TabletIndications :Polymyalgia TAKE 2 TABLETS(8 MG) BY MOUTH EVERY 6 HOURS NEEDED FOR SPASM 120 Tablet 2 10/15/19 21 Active montelukast (SINGULAIR) 10 mg tablet TAKE 1 TABLET(10 MG) BY MOUTH DAILY AT BEDTIME 90 Tablet 4 10/15/19 Active ofloxacin (FLOXIN) 0.3 % Drops Administer 10 Drops in both ears daily. 10 mL 1 10/16/19 Active celecoxib (CeleBREX) 100 mg capsule Take 1 Capsule (100 mg) by mouth daily. 90 Capsule 4 10/16/19 Active ondansetron (ZOFRAN) 4 mg Tablet Take 1 Tablet (4 mg) by mouth every 8 hours as needed for Nausea/Emesis. 20 Tablet 1 10/18/19 21 Active Active Problems Problem Noted Date Diagnosed Date Chronic midline low back pain with bilateral sci atica 10/13/2020 Polymyalgia 10/13/2020 Refused influenza vaccine 10/13/2020 Statin intolerance 10/13/2020 Generalized anxiety disorder 10/12/2019 Tobacco use 09/04/2018 Type 2 diabetes mellitus wit h diabetic polyneuropathy, with long-term current use of insulin 09/04/2018 Gout 08/18/2018 Onychomycosis 08/18/2018 Age-related osteoporosis wit hout current pathological fracture 08/18/2018 Plantar fasciitis 08/18/2018 Mixed stress and urge urinary incontinence 05/19 Gastroesophageal reflux disease without esophagi tis 02/20/2018 Chronic systolic (congestive) heart failure 07/2017 Chronic obstructive pulmonary disease 02/20/2018 Essential hypertension 02/20/2018 History of cerebrovascular a ccident (CVA) with residual deficit 02/20/2018 Hemiplegia and hemiparesis f 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 02/20/2018 Resolved Problems Problem Noted Date Diagnosed Date Resolved Date Acute embolism and thrombosi s of unspecified deep veins of left proximal lower extremity 06/15/2019 09/11/2019 Fracture of foot 08/18/2018 09/16/2020 Social History Tobacco Use Types Packs/Day Years Used Date Smoking Tobacco: Every Day Cigarettes Smokeless Tobacco: Never Tobacco Cessation:Ready to Q uit: No Alcohol Use Standard Drinks/Week Comments No 0 (1 standard drink = 0.6 oz pur e alcohol) Comments No Sex and Gender Information Value Date Recorded Sex Assigned at Not on file Legal Sex Female 9:55 AM CDT Gender Identity Not on file Sexual Orientation Not on file Last Filed Vital Signs Vital Sign Reading Time Taken Comments Blood Pressure 135/85 10/03/2020 2:00 PM CDT Pulse 75 10/03/2020 11:53 AM CDT Temperature 36.4 C (97.5 F) 10/03/2020 11:53 AM CDT Respiratory Rate 20 10/03/2020 11:53 AM CDT Oxygen Saturation 97% 10/03/2020 11:53 AM CDT Inhaled Oxygen Concentration - - Weight 66.7 kg (147 lb) 03/28/2020 10:05 AM [employer] Height 157.5 cm (5' 2 ) 03/28/2020 10:05 AM [employer] Body Mass Index 26.89 03/28/2020 10:05 AM [employer] Plan of Treatment Health Maintenance Due Date Last Done Comments FIT/ DNA Q 3 YEARS (AUTO ORDER) 1973 FIT/FOBT Q 1 YEAR (AUTO ORDER) 1973 FLEX SIG/CT COLONOGRAPHY Q 5 YEARS (AUTO ORDER) 1973 DTAP/TDAP/TD VACCINES (1 - Tdap) 1974 PNEUMOCOCCAL VACCINE 50+ YEA RS (1 of 2 - PCV) 1974 COLORECTAL CANCER SCREENING (AUTO ORDER) 02/07/2000 COLORECTAL SCREENING 02/07/2000 Colorectal Cancer Screening (AUTO ORDER) 02/07/2000 Colorectal Cancer Screening 02/07/2000 FIT-DNA Q 3 years 02/07/2000 FIT/FOBT Q 1 year 02/07/2000 Flex Sig/CT Colonography Q 5 years 02/07/2000 ZOSTER VACCINE (1 of 2) 2005 RSV VACCINE (60+ or ) (1 - Risk 60-74 years 1-dose series) 2015 BREAST CANCER SCREENING 08/14/2015 08/13/2014 DIABETES ANNUAL RETINAL EXAM 01/07/2018, 01/06/2017, 08/03/2016, Additional history exists DIABETES MICROALBUMIN ANNUAL SCREEN 05/19/2019 05/19/2018 OSTEOPOROSIS SCREENING 02/07/2020 DIABETES HBA1C Q 6 MONTHS 03/08/20212020, 03/28/2020, 06/15/2019, Additional history exists Traditional Medicare (ACO) A nnual Wellness Visit 03/29/2021 03/28/2020, 03/02/2019 DIABETES ANNUAL FOOT EXAM 09/05/2021 09/05/2020 LDL CHOLESTEROL ANNUAL 09/05/2021 1, 03/28/2020, 12/29/2018, Additional history exists INFLUENZA VACCINE (#1) 2023 1, 10/03/2020, 03/28/2020, Additional history exists Procedures Procedure Name Priority Date/Time Associated Diagnosis Comments LIPID PANEL Routine 09/05/2020 11:11 AM CDT Type 2 diabetes mellitus with stage 3a chronic kidney disease, without long-term current use of insulin ([facility]) HEMOGLOBIN A1C Routine 09/05/2020 11:11 AM CDT Type 2 diabetes mellitus with stage 3a chronic kidney disease, without long-term current use of insulin ([facility]) MICROALBUMIN/CREATIN INE RATIO, RANDOM UR Routine 05/19/2018 1:01 PM [employer] Type 2 diabetes mellitus with diabetic polyneuropathy, with long-term current use of insulin ([facility]) from Last 3 Months or Most Recently Relevant to Health Maintenance Results * HEMOGLOBIN A1C (09/05/2020 11:11 AM CDT) HEMOGLOBIN A1C 5.6 See Comment % 09/05/2020 8:59 PM CDT [facility] EST. AVG GLUCOSE, A1C 114 mg/dL 09/05/2020 8:59 PM CDT [facility] Blood Venipuncture / Unknown 09/05/2020 11:11 AM CDT 09/05/2020 8:04 PM CDT [facility] - 09/05/2020 8:59 PM CDT HGB A1C INTERPRETATION NORMAL: <5.7% PRE-DIABETES: 5.7 - 6.4% DIABETES: 6.5% OR GREATER Falsely low A1C measurements can occur when: 1. Anemia and/or hemolytic anemia is present. 2. Hemoglobin variants present. 3. Renal failure. 4. Transfusion of blood product in the last 120 days. We recommend ordering a fructosamine test([id number]) to more accurately assess glycemic status if any of the above conditions are present. Sari Blankenship DO CHEMISTRY ORDERABLES Final Result [facility] CLIA# [id number] [address] [place] [id number] * (ABNORMAL) LIPID PANEL (09/05/2020 11:11 AM CDT) CHOLESTEROL 177 <200 mg/dL 09/05/2020 9:12 PM CDT [facility] TRIGLYCERIDE 142 <150 mg/dL 09/05/2020 9:12 PM CDT [facility] HDL 42 40 - 59 mg/dL 09/05/2020 9:12 PM T [facility] LDL CALCULATED 107(H) <100 mg/dL 09/05/2020 9:12 PM CDT [facility] NON-HDL CHOLESTEROL 135(H) <130 mg/dL 09/05/2020 9:12 PM T [facility] Blood Venipuncture / Unknown 09/05/2020 11:11 AM CDT 09/05/2020 8:04 PM CDT [facility] - 09/05/2020 9:12 PM CDT TOTAL CHOLESTEROL mg/dL Desirable <200 Borderline high 200-239 High >=240 TRIGLYCERIDES mg/dL Normal <150 Borderline high 150-199 High 200-499 Very high >=500 HDL CHOLESTEROL mg/dL Low <40 Normal 40-59 Desirable >=60 NON HDL CHOLESTEROL mg/dL Optimal <130 Near Optimal 130-159 Borderline High 160-189 Very High >=190 CALCULATED LDL mg/dL LDL <70, OPTIMAL if have Atherosclerotic cardiovascular disease (ASCVD) or intermediate or higher (>7.5%) 10 year risk of ASCVD including most adults with diabetes. LDL <100, Optimal in adult patients with low (<7.5%) 10 year ASCVD risk LDL 100-160, Suboptimal LDL >160, High LDL >190, Very high ATPIII Guidelines Reference Ranges for Lipid Panels (NCEP/AMA) . Sari Blankenship DO CHEMISTRY ORDERABLES Final Result [facility] IA# [id number] [address] [place] [id number] * MICROALBUMIN/CREATININE RATIO, RANDOM UR (05/19/2018 1:01 PM [employer]) MICROALBUMIN, URINE <1.2 No Reference Range mg/dL 05/19/2018 9:[address] [facility] CREATININE, URINE 30.8 29.0 - 226.0 mg/dL 05/19/2018 9:[address] [facility] Comment: Reference Range varies with fluid intake and diet. Urine URINE SPECIMEN OBTAINED BY CLEAN CATCH PROCEDURE / Unknown Collection / Unknown 05/19/2018 1:01 PM [employer] 05/19/2018 7:41 PM [employer] Neema [facility] - 05/19/2018 9:20 PM [employer] Condition Microalbumin/Creat ratio Normal Males <17 Normal Females <25 Microalbuminuria Males 17-299 Microalbuminuria Females 25-299 Overt proteinuria >=300 Unable to calculate urine microalbumin/creatinine ratio because urine microalbumin result is outside of reportable range. Sari Blankenship DO URINE ORDERABLES Final Resu lt [facility]# [id number] [place] [address] from Last 3 Months or Most Recently Relevant to Health Maintenance Insurance MEDICARE PART A AND B MEDICAID [place] Care Teams Staff Interpreter Relationship Specialty Start Date End Date Sari Blankenship DO [address] [place] [address] PCP - General Family Practice 02/18/18
--- NOTE | 2024-10-17 11:49 | XR_ITS ---
WS: [id number] XR chest 1V portable [id number] REASON FOR EXAM: ams FINDINGS: Mild tortuosity of the thoracic aorta. Normal heart size. Compared to the examination of 09/08/2024, there are areas of linear atelectasis in the left lower lung. There are also chronic appearing interstitial lung opacities and peribronchial cuffing. The right chest demonstrates no significant abnormality. Moderate degenerative spondylosis in the thoracic spine. XR/XR chest 1V portable [id number] IMPRESSION: Findings in the left lower lung as unknown chronicity, nonspecific.
--- NOTE | 2024-10-17 11:49 | CTR_ITS ---
PROCEDURE INFORMATION: Exam: CT Head Without Contrast Exam date and time: 10/17/2024 12:07 PM Age: 69 years old Clinical indication: Altered mental status/memory loss; Additional info: AMS TECHNIQUE: Imaging protocol: Computed tomography of the head without contrast. Radiation optimization: All CT scans at this facility use at least one of these dose optimization techniques: automated exposure control; mA and/or kV adjustment per patient size (includes targeted exams where dose is matched to clinical indication); or iterative reconstruction. COMPARISON: CT head wo con* [id number] 10/09/2024 8:18 PM RADIATION DOSE METRICS: Total DLP (mGy-cm): 1109.38 FINDINGS: Brain: Chronic infarcts are again identified in the left occipital lobe and right frontal lobe. There is mild to moderate small vessel disease. There is no evidence of acute parenchymal hemorrhage, extra-axial collection, or acute infarction. There is no mass effect, midline shift, or downward herniation. Cerebral ventricles: No ventriculomegaly. Paranasal sinuses: Visualized sinuses are unremarkable. No fluid levels. Mastoid air cells: Visualized mastoid air cells are well aerated. Bones: Unremarkable. No acute fracture. Soft tissues: Unremarkable. CT/CT head wo con* [id number] IMPRESSION: 1. No evidence of acute intracranial process. 2. Chronic infarcts. Ejgg-[id number]-uuvhvliq small vessel disease.
--- NOTE | 2024-10-17 11:54 | ED_ITS ---
HPI - Altered Mental Status 2 General: Chief Complaint: Altered Mental Status Stated Complaint: AMS Time Seen by Provider: 10/17/24 11:48 Source: EMS Mode of arrival: EMS Limitations: altered mental status History of Present Illness: 69-year-old female has had a history of stroke in the past has residual left- sided deficits was recently admitted for stroke was discharged on the per EMS she has been having increased confusion patient thought she had seen her sister who was not there she is able to tell me her name but does have some confusion here. Related Data Home Medications ?Medication ?Instructions ?Recorded ?Confirmed esomeprazole magnesium 40 mg 40 mg PO DAILY 06/06/19 0 10/10/24 capsule,delayed release (Nexium) lidocaine 5 % topical patch 1 patch topical DAILY 05/2010/10/24 (Lidoderm) montelukast 10 mg tablet 10 mg PO DAILY 06/06/1909/18 oxybutynin chloride 10 mg 10 mg PO QAM 06/06/19 tablet,extended release 24 hr oxycodone 10 mg tablet 10 mg PO Q8H PRN Pain 10/10/24 furosemide 20 mg tablet (Lasix) 10 - 20 mg PO DAILY [place] N Edema 07/30/20 10/10/24 benazepril 20 mg tablet 20 mg PO DAILY 01/11/2109/18 tizanidine 4 mg tablet 4 mg PO QID PRN Muscle Pain 01/11/21 10/10/24 bumetanide 1 mg tablet 1 mg PO DAILY 10/10/2410/10 chlorpheniramine-acetaminophen 2 2 tab PO Q6H PRN Flu Symptoms 10/10/24 10/10/24 mg-325 mg tablet (Coricidin HBP Cold and Flu) diclofenac sodium 1 % topical gel 2 g topical QID 09/1810/10/24 dulaglutide 4.5 mg/0.5 mL 4.5 mg SUBCUT Q7D 10/10/24 0 10/10/24 subcutaneous pen injector (Trulicity) fluticasone propionate 50 2 spray intranasal DAILY 10/10/24 mcg/actuation nasal spray,suspension levothyroxine 50 mcg tablet 50 mcg PO DAILY 10/10/24 0 10/10/24 linagliptin 5 mg tablet (Tradjenta) 5 mg PO DAILY 09/1810/10/24 naloxone 4 mg/actuation nasal 4 mg intranasal Q3M PRN OVERDOSE 10/10/24 10/10/24 spray (Narcan) prednisone 20 mg tablet 20 mg PO BID 10/10/24 Previous Rx's ?Medication ?Instructions ?Recorded aspirin 81 mg tablet,delayed 81 mg PO DAILY #30 tabs 0 10/13/24 release atorvastatin 40 mg tablet 40 mg PO BEDTIME 30 days #30 tabs 10/13/24 baclofen 10 mg tablet 10 mg PO TID PRN Pain 30 day s #90 10/13/24 tabs Allergies Allergy/AdvReac Type Severity Reaction Status Date / Time Iodinated Contrast Media Allergy Unknown unknown Verified 10/09/24 18:21 Review of Systems 2 General: Reports: ROS unobtainable due to mental status PFSH ED 2 PFSH: Medical History Lumbar compression fracture Diabetes mellitus, type II Cervical disc disorder with myelopathy of mid-cervical region History of DVT (deep vein thrombosis) Abnormal nuclear stress test (~05/2019) CHF (congestive heart failure) Echocardiogram in February 2019 showed an ejection fraction of 60% with no regional wall motion abnormalities though there was grade 1/4 diastolic dysfunction GERD (gastroesophageal reflux disease) COPD (chronic obstructive pulmonary disease) CVA (cerebral vascular accident) Spinal stenosis Hypertension Left renal mass Osteoarthritis Surgical History Status post lumbar surgery (07/29/20) Status post cervical spinal fusion (06/26/19) C4-C7 ACDFF, with C5/C6 corpectomies, [facility]. History of cataract surgery S/P knee replacement Family History Other CAD (coronary artery disease) Social History Alcohol intake: never Substance/Drug Use: never Lives independently: No Marital status: / Current occupational status: disabled Physical Exam 2 Const: COMMON NORMALS: negative for patient oriented x3 HENMT: COMMON NORMALS: normocephalic and atraumatic HEAD & SCALP: n ormocephalic and atraumatic Eye: COMMON NORMALS: Equal, round and reactive pupils present and EOMs intact bilaterally PUPIL: Yes Equal, round and reactive pupils present Neck/C-Spine: COMMON NORMALS: full ROM and supple Chest: COMMONS NORMALS: normal inspection of the chest Resp: COMMON NORMALS: normal respiratory effort, No retractions, No use of accessory muscles and clear to auscultation bilaterally AUSCULTATION: clear to auscultation bilaterally Cardio: COMMON NORMALS: regular rate, regular rhythm and No murmurs present (Cardio) RATE: regular rate RHYTHM: regular rhythm GI: COMMON NORMALS: Normal to inspection, nondistended, normoactive bowel sounds present, Soft to palpation, non-tender and no masses PALPATION: Yes Soft to palpation Extremity: COMMON NORMALS: normal to inspection and full ROM Neuro: COMMON NORMALS: moves all extremities and no focal motor deficits; negative for patient oriented x3 Psych: COMMON NORMALS: Normal thought process present and cooperative T HOUGHT PROCESS: Normal thought process present Skin: COMMON NORMALS: no rashes or lesions noted and no wounds GENERAL SKIN EXAM: no rashes or lesions noted Course 2 Vital Signs: Vital signs: Vital Signs Temperature 98.1 F 10/17/24 11:39 Pulse Rate 89 10/17/24 14:00 Respiratory Rate 20 H 10/17/24 11:39 Blood Pressure 114/70 10/17/24 13:51 Pulse Oximetry 97 10/17/24 14:00 Oxygen Delivery Me thod Room Air 10/17/24 14:00 MDM - Altered Mental Status Medical Decision Making Patient presents here with confusion she did have a recent stroke does have a urinary tract infection here likely causing her altered mental status spoke to hospitalist will admit at this time. Medical Records I reviewed the patient's medical records. Lab Data I reviewed the patient's lab results. 10/17/24 12:01 10/17/24 12:01 Radiology Impressions Chest X-Ray 10/17/24 11:49 IMPRESSION: Findings in the left lower lung as unknown chronicity, nonspecific. Head CT 10/17/24 11:49 IMPRESSION: 1. No evidence of acute intracranial process. 2. Chronic infarcts. Rvbu-cx-[id number] small vessel disease. Laboratory Results WBC 14.48 10^3/uL (3.29-11.43) H 10/17/24 12:01 RBC 5.02 10^6/uL (3.85-5.65) 10/17/24 12:01 Hgb 14.60 g/dL (11.27-16.99) 10/17/24 12:01 Hct 45.1 % (36-47) 10/17/24 12:01 MCV 89.8 fl (85-98) 10/17/24 12:01 MCH 29.1 pg (27-33) 10/17/24 12:01 MCHC 32.4 g/dL (30-55) 10/17/24 12:01 RDW 13.8 % (12.1-15.1) 10/17/24 12:01 Plt Count 222 10^3/cmm (157-399) 10/17/24 12:01 MPV 12.4 fL (7.4-10.4) H 10/17/24 12:01 Neut % (Auto) 79.2 % 10/17/24 12:01 Lymph % (Auto) 9.7 % 10/17/24 12:01 [place] % (Auto) 10.1 % 10/17/24 12:01 Eos % (Auto) 0.1 % 10/17/24 12:01 Baso % (Auto) 0.3 % 10/17/24 12:01 Neut # (Auto) 11.47 10^3/uL (1.8-7.7) H 10/17/24 12:01 Lymph # (Auto) 1.4 10^3/uL (0.8-4.8) 10/17/24 12:01 [place] # (Auto) 1.5 10^3/uL (0.2-0.9) H 10/17/24 12:01 Eos # (Auto) 0.0 10^3/uL (0.0-0.8) 10/17/24 12:01 Baso # (Auto) 0.1 10^3/uL (0.0-0.1) 10/17/24 12:01 Nucleated RBC % (auto) 0 % 10/17/24 12:01 Nucleated RBCs # 0.0 /100WBC 10/17/24 12:01 PT 15.00 SECONDS (12.1-14.9) H 10/17/24 12:01 INR 1.10 (0.8-1.2) 10/17/24 12:01 Sodium 130 mmol/L (136-145) L 10/17/24 12:01 Potassium 5.1 mmol/L (3.5-5.1) 10/17/24 12:01 Chloride 94 mmol/L (98-107) L 10/17/24 12:01 Carbon Dioxide 21 mmol/L (22-29) L 10/17/24 12:01 Anion Gap 20.1 (5-19) H 10/17/24 12:01 BUN 32 mg/dL (8-23) H 10/17/24 12:01 Creatinine 1.7 mg/dL (0.5-0.9) H 10/17/24 12:01 GFR Calculation 29.8 mL/min (90-130) L 10/17/24 12:01 Glucose 218 mg/dL (65-115) H 10/17/24 12:01 Calculated Osmolality 284 mOsm/kg (285-295) L 10/17/24 12:01 Calcium 9.6 mg/dL (8.5-10.5) 10/17/24 12:01 Magnesium 2.2 mg/dL (1.7-2.3) 10/17/24 12:01 Total Bilirubin 0.8 mg/dL (0.15-1.2) 10/17/24 12:01 AST 96 U/L (0-32) H 10/17/24 12:01 ALT 88 U/L (0-33) H 10/17/24 12:01 Alkaline Phosphatase 206 U/L (35-105) H 10/17/24 12:01 Total Protein 7.2 g/dL (6.6-8.7) 10/17/24 12:01 Albumin 3.4 g/dL (3.5-5.2) L 10/17/24 12:01 Globulin 3.8 g/dL (1.3-4.6) 10/17/24 12:01 Urine Color Haiku (Yellow) A 10/17/24 13:15 Urine Appearance Turbid (CLEAR) A 10/17/24 13:15 Urine pH 6.5 (5-7) 10/17/24 13:15 Ur Specific [place] 1.019 (1.005-1.030) 10/17/24 13:15 Urine Protein 1+ (Negative) A 10/17/24 13:15 Urine Glucose (UA) Negative (Normal) 10/17/24 13:15 Urine Ketones Trace (Negative) 10/17/24 13:15 Urine Blood 2+ (Negative) A 10/17/24 13:15 Urine Nitrate Positive (Negative) A 10/17/24 13:15 Urine Bilirubin Negative (Negative) 10/17/24 13:15 Urine Urobilinogen 1.0 mg/dL (Negative) 10/17/24 13:15 Ur Leukocyte Esterase 3+ (Negative) A 10/17/24 13:15 Urine RBC 0-2 /hpf (0-2) 10/17/24 13:15 Urine WBC >100 /hpf (0-5) H 10/17/24 13:15 Ur Squamous Epith Cells 0-5 /hpf (0-5) 10/17/24 13:15 Amorphous Sediment Not Reportable 10/17/24 13:15 Urine Bacteria Exceeds /hpf (NONE) 10/17/24 13:15 Hyaline Casts 9.54 /lpf 10/17/24 13:15 All radiology interpretation(s) finalized by discharge EKG Data EKG 1: I personally reviewed and interpreted this EKG as follows: EKG interpretation date: 10/17/24 EKG interpretation time: 12:25 Interpretation: nsr hr [address] elevation qrs 97 qtc 379 Discharge Plan Discharge Patient Disposition: Admitted As Inpatient Clinical Impression: Altered mental status, Acute cystitis Condition: Stable Coding Level of Care Code ED Business Liaison Officer for Riley Romero
[2024-10-17 12:17] LABS: Hematocrit 45.1 % (36-47); Hemoglobin 14.60 g/dL (11.27-16.99); Mean Corpuscular HGB Conc 32.4 g/dL (30-55); Mean Corpuscular Hemoglobin 29.1 pg (27-33); Mean Corpuscular Volume 89.8 fl (85-98); Nucleated Red Blood Cells % 0 %; Platelet Count 222 10^3/cmm (157-399); Red Blood Count 5.02 10^6/uL (3.85-5.65); White Blood Count 14.48 10^3/uL (3.29-11.43)
--- NOTE | 2024-10-17 12:25 | ECG_ITS ---
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 Measurements Intervals [place] Rate: 70 P: 48 AK: 145 QRS: -12 QRSD: 97 T: 107 QT: 359 QTc: 388 Interpretive Statements SINUS RHYTHM WITH SINUS ARRHYTHMIA ST DEVIATION AND MODERATE T-WAVE ABNORMALITY, CONSIDER LATERAL ISCHEMIA [-0.1+ mV T-WAVE IN I/aVL/V5/V6] Compared to ECG 10/09/2024 18:54:17 No significant changes Electronically Signed On 10-19-2024 09:03:03 CDT by Cesar Cuba M.D. [id number]
[2024-10-17 12:31] LABS: INR 1.10 (0.8-1.2); Prothrombin Time 15.00 SECONDS (12.1-14.9)
[2024-10-17 12:36] LABS: Alanine Aminotransferase 88 U/L (0-33); Albumin Level 3.4 g/dL (3.5-5.2); Alkaline Phosphatase 206 U/L (35-105); Anion Gap 20.1 (5-19); Aspartate Amino Transferase 96 U/L (0-32); Blood Urea Nitrogen 32 mg/dL (8-23); Calcium 9.6 mg/dL (8.5-10.5); Carbon Dioxide 21 mmol/L (22-29); Chloride 94 mmol/L (98-107); Creatinine Clr Calc Pharmacy 29.1347; Globulin 3.8 g/dL (1.3-4.6); Glucose 218 mg/dL (65-115); Magnesium 2.2 mg/dL (1.7-2.3); Osmolality Calculated 284 mOsm/kg (285-295); Potassium 5.1 mmol/L (3.5-5.1); Sodium 130 mmol/L (136-145); Total Protein 7.2 g/dL (6.6-8.7)
[2024-10-17 13:32] LABS: Glucose Urine UA Negative (Normal); Nitrate Urine Positive (Negative); Specific Gravity, Urine 1.019 (1.005-1.030)
[2024-10-17 13:37] LABS: Add Urine Microscopic? YES
[2024-10-17 14:09] LABS: UA Slide Review UA Slide Review Perf
[2024-10-17] MEDS: cefTRIAXone 1,000 mg SDV 1000 MG IVP (14:29)
--- NOTE | 2024-10-17 15:01 | PC.PHAR ---
Family had a med list from 10/13/24 and stated pt last took medications last night and nothing today.
--- NOTE | 2024-10-17 16:29 | PM.HP ---
Providers/Chief Complaint Admitting Physician: Lane Shields Primary Care Provider: Sari Blankenship DO Chief Complaint: AMS History of Present Illness Sari Rojas is a 69 year old lady with a history of recent cerebrovascular accident (CVA) and multiple chronic illnesses who presents from home to the emergency department for increasing confusion noted by her family. She was discharged home on 10-13-24 after hospitalization for a sub-acute CVA that left her with new left-sided weakness and worsened pre-existing right-sided weakness. Two weeks before that admission she fell from her wheelchair, sustaining thoracolumbar vertebral compression fractures and a coccygeal fracture. Today the family reports she is having confusion and believes she saw her sister who was not present. She complains of buttock/tailbone pain but denies dysuria or urinary frequency. She has a cough but denies fever, chills, nausea, vomiting, or diarrhea. She reports poor oral intake; exam reveals dry mucous membranes. Family confirms limited mobility, poor eating, and desire for placement assistance. Review of Systems General: Reports: ROS unobtainable due to mental status (Very limited ROS. Reporting pain in her coccyx. ) Const: Denies: fever(s) or chills Card: Denies: chest pain Resp: Denies: dyspnea, productive cough or non-productive cough GI: Denies: abdominal pain, nausea, vomiting or diarrhea : Denies: difficulty voiding or hematuria Skin/Breast: Denies: rash Neuro: Reports: confusion Medications/Allergies Home Medications ?Medication ?Instructions ?Recorded ?Confirmed ?Last Taken ?Type esomeprazole magnesium 40 mg 40 mg PO DAILY 06/06/19 10/17/24 10/16/24 History capsule,delayed release (Nexium) lidocaine 5 % topical patch 1 patch topical DAILY 06/06/19 10/17/24 10/16/24 History (Lidoderm) montelukast 10 mg tablet 10 mg PO DAILY PRN allergies 06/06/19 10/17/24 10/16/24 History oxybutynin chloride 10 mg 10 mg PO QAM 06/06/19 10/17/24 10/16/24 History tablet,extended release 24 hr oxycodone 10 mg tablet 10 mg PO Q8H PRN Pain 06/06/19 10/17/24 07/28/20 History benazepril 20 mg tablet 20 mg PO DAILY 01/11/21 10/17/24 10/16/24 History tizanidine 4 mg tablet 4 mg PO QID PRN Muscle Pain 01/11/21 10/17/24 Unknown History bumetanide 1 mg tablet 1 mg PO DAILY 10/10/24 10/17/24 10/16/24 History chlorpheniramine-acetaminophen 2 2 tab PO Q6H PRN Flu Symptoms 10/10/24 10/17/24 Unknown History mg-325 mg tablet (Coricidin HBP Cold and Flu) diclofenac sodium 1 % topical gel 2 g topical QID PRN Pain 10/10/24 10/17/24 Unknown History dulaglutide 4.5 mg/0.5 mL 4.5 mg SUBCUT Q7D 10/10/24 10/17/24 10/13/24 History subcutaneous pen injector (Trulicity) fluticasone propionate 50 2 spray intranasal DAILY 10/10/24 10/17/24 Unknown History mcg/actuation nasal spray,suspension levothyroxine 50 mcg tablet 50 mcg PO DAILY 10/10/24 10/17/24 10/16/24 History linagliptin 5 mg tablet (Tradjenta) 5 mg PO DAILY 10/10/24 10/17/24 10/16/24 History naloxone 4 mg/actuation nasal 4 mg intranasal Q3M PRN OVERDOSE 10/10/24 10/17/24 Unknown History spray (Narcan) aspirin 81 mg tablet,delayed 81 mg PO DAILY #30 tabs 10/13/24 10/17/24 10/16/24 Rx release atorvastatin 40 mg tablet 40 mg PO BEDTIME 30 days #30 tabs 10/13/24 10/17/24 10/16/24 Rx baclofen 10 mg tablet 10 mg PO TID PRN Pain 30 days #90 10/13/24 10/17/24 Unknown Rx tabs insulin degludec 200 unit/mL (3 40 unit SUBCUT QAM 10/17/24 10/17/24 10/16/24 History mL) subcutaneous pen (Tresiba FlexTouch U-200 insulin) ondansetron HCl 4 mg tablet 4 mg PO Q8H PRN Nausea And Vomiting 10/17/24 10/17/24 Unknown History Allergies Allergy/AdvReac Type Severity Reaction Status Date / Time Iodinated Contrast Media Allergy Unknown unknown Verified 10/09/24 18:21 PFSH Acute PFSH: Medical History Lumbar compression fracture Diabetes mellitus, type II Cervical disc disorder with myelopathy of mid-cervical region History of DVT (deep vein thrombosis) Abnormal nuclear stress test (~05/2019) CHF (congestive heart failure) Echocardiogram in February 2019 showed an ejection fraction of 60% with no regional wall motion abnormalities though there was grade 1/4 diastolic dysfunction GERD (gastroesophageal reflux disease) COPD (chronic obstructive pulmonary disease) CVA (cerebral vascular accident) Spinal stenosis Hypertension Left renal mass Osteoarthritis Surgical History Status post lumbar surgery (07/29/20) Status post cervical spinal fusion (06/26/19) C4-C7 ACDFF, with C5/C6 corpectomies, OMC. History of cataract surgery S/P knee replacement Family History Other CAD (coronary artery disease) Social History Alcohol intake: never Substance/Drug Use: never Lives independently: No Marital status: / Current occupational status: disabled Vitals/I&O/Wt Last Vital Signs Temp 98.1 F 10/17/24 11:39 Pulse 88 10/17/24 16:08 Resp 20 H 10/17/24 11:39 BP 154/97 10/17/24 16:08 Pulse Ox 99 10/17/24 16:08 O2 Del Method Room Air 10/17/24 15:34 10/17/24 10/17/24 10/17/24 06:59 14:59 22:59 Intake Total 1000 / 1000 Balance 1000 / 1000 Weight last 48 hrs Weight 72.575 kg Physical Exam Const: GENERAL APPEARANCE: cooperative ORIENTATION/CONSCIOUSNESS: Yes awake HENMT: COMMON NORMALS: oropharynx normal Neck/C-Spine: COMMON NORMALS: no JVD Resp: COMMON NORMALS: normal respiratory effort and clear to auscultation bilaterally AUSCULTATION: clear to auscultation bilaterally Cardio: COMMON NORMALS: no JVD, regular rhythm, S1 normal heart sound present, S2 normal heart sound present and No murmurs present (Cardio) RHYTHM: regular rhythm HEART SOUNDS: S1 normal heart sound present and S2 normal heart sound present GI: COMMON NORMALS: Normal to inspection, nondistended, normoactive bowel sounds present, Soft to palpation and non-tender PALPATION: Yes Soft to palpation Extremity: COMMON NORMALS: no joint enlargement and no pedal edema Neuro: OTHER: Without obvious facial droop. L side flaccid paralysis. R side weakness more pronounced in RLE. Sensory loss on the L. Skin: OTHER: Skin tears over left forearm, bruising with very thin fragile skin both forearms and hands. Shallow ulceration of lateral distal left lower leg Data 10/17/24 12:01 10/17/24 12:01 A&P Assessment and plan (1) Altered mental status: Acute metabolic encephalopathy : Family-noted confusion; oriented incorrectly to date; likely multifactorial but infection/SHAKIR prominent. Reviewed vitals, CBC, CMP, UA, CT head, chest x-ray, EKG. Afebrile, BP 154/97 mmHg, SpO? 99 % on room air. Labs show leukocytosis 14.5 K/?L, Na 130 mEq/L, K 5.1 mEq/L, bicarbonate 21 mEq/L, BUN 32 mg/dL, creatinine 1.7 mg/dL (prior 0.9 mg/dL), AST 96 U/L, ALT 88 U/L, alkaline phosphatase 206 U/L, albumin 3.4 g/dL. UA: orange, turbid urine with positive nitrite, 3+ leukocyte esterase, >100 WBC/hpf, bacteria present. Head CT: chronic infarcts and small-vessel disease with no acute process. Chest X-ray: bibasilar atelectasis. EKG: sinus rhythm with T-wave inversion in I, aVL on my interpretation, pending facial read. - Treat underlying UTI and SHAKIR - Monitor mental status each shift. - Ensure safe environment and reorientation cues. - With poor oral intake recently, dehydration, continue IV fluid. Monitor for risk of fluid overload. - Reduce oxycodone dose to 5 mg hold muscle relaxer for now (2) Acute cystitis: Urinary tract infection : Positive UA with leukocytosis, nitrite, bacteria; patient symptomatic with confusion likely from UTI. Reviewed ER provider note, discussed with ER provider. Pending urine culture, blood culture. Follow-up. - Initiate empiric IV antibiotics (per ER start) and adjust based on urine culture. Continue ceftriaxone. Monitor for risk of C. difficile. - Obtain CT abdomen/pelvis renal stone protocol to rule out obstructive uropathy contributing to infection. - Monitor urine culture and sensitivities. (3) Acute kidney injury: Creatinine increased from 0.9 ? 1.7 mg/dL since 10-13-24; likely multifactorial (dehydration, infection). - Administer cautious IV fluids given CHF history monitor for risk of fluid overload. LR 75 mL/h. - Trend daily BMP/renal function. - Review CT results for possible obstructive uropathy discussion with her grandson. Plan Electrolyte imbalance (hyponatremia, mild hyperkalemia) : Na 130 mEq/L (probably dilutional from dehydration); K 5.1 mEq/L. Hold FELICITA inhibitor. Low potassium diet. - Replete fluids; repeat electrolytes q12?24 h. - Hold/adjust FELICITA inhibitor (benazepril) and bumetanide if K increases further. - Consider renal dosing of other meds. Recent cerebrovascular accident with left-sided hemiplegia : Sub-acute right frontal ischemic stroke on last admission; current severe left-sided weakness. - Continue aspirin and atorvastatin as secondary prevention. - Maintain head CT findings; no acute change. - Physical and occupational therapy consult when medically stable. Chronic right-sided hemiparesis from prior stroke : Baseline weakness from earlier event; wheelchair dependent. - Continue supportive care and mobility assistance. - Evaluate for long-term care placement . Requested case management consultation for long-term chcf. Per discussion with her grandson she has been agreeable to this. Pressure ulcer and skin tears : Patient admits buttock pressure sore; exam shows leg ulcer, skin tears, bruises. Corroborated by family. - Wound care team consult for assessment and dressing regimen. - Frequent repositioning; specialty mattress. - Monitor for infection. Dehydration : Dry mucous membranes, concentrated urine; poor oral intake. - IV fluid hydration balanced with CHF status. - Encourage oral fluids when awake. Pressure sore: Turn frequently. Foam dressing. High-protein supplement. DM2: Continue long-acting insulin, with reduced oral intake recently, will reduce to 20 units daily. Slight. Monitor POC Glucose. Monitor for Risk of Hypoglycemia. PDMP PDMP Reviewed: Not Reviewed Attestations Medical Necessity Statement*: Place in observation for assessment management of acute metabolic encephalopathy with UTI, SHAKIR, and lady with recent CVA, with electrolyte imbalance as above with hyponatremia, mild hyperkalemia, dehydration, additional comorbidities. and High MDM includes amount and/or complexity of data reviewed/ordered [ previous or external records, resulted lab(s)/test(s), ordered lab(s)/test(s), independent historian and other healthcare professional discussion] and described risk of complication, morbidity or mortality of management as documented Diagnoses Altered mental status R41.82 Acute cystitis N30.00 Acute kidney injury N17.9
--- NOTE | 2024-10-17 17:01 | CTR_ITS ---
PROCEDURE INFORMATION: Exam: CT Abdomen And Pelvis Without Contrast Exam date and time: 10/17/2024 6:08 PM Age: 69 years old Clinical indication: Abdominal pain; Generalized; Additional info: Assess for any obstructive enphropathy TECHNIQUE: Imaging protocol: Computed tomography of the abdomen and pelvis without contrast. Radiation optimization: All CT scans at this facility use at least one of these dose optimization techniques: automated exposure control; mA and/or kV adjustment per patient size (includes targeted exams where dose is matched to clinical indication); or iterative reconstruction. COMPARISON: CT abdomen pelvis wo/w [id number] 07/05/2018 10:38 AM RADIATION DOSE METRICS: Total DLP (mGy-cm): 824.88 FINDINGS: Limitations: Suboptimal image quality due to motion artifacts. Lungs: Bibasilar atelectasis. Coronary arteries: Coronary artery calcifications. Liver: Normal. No mass. Gallbladder and biliary ducts: Normal. No calcified stones. No ductal dilation. Pancreas: Mild atrophy of the pancreas. No ductal dilatation. Spleen: Normal. No splenomegaly. Adrenal glands: Normal. No mass. Kidneys and ureters: Interval increase in size of the left renal cysts now measuring up to 4.7 cm, previously 2.5 cm. Mild bilateral perinephric fat stranding is nonspecific. No hydronephrosis bilaterally. Stomach and bowel: Unremarkable. No obstruction. No mucosal thickening. Appendix: No evidence of appendicitis. Intraperitoneal space: Unremarkable. No free air. No significant fluid collection. Vasculature: Mild calcifications in the right renal sinus are likely vascular. Mild to moderate atherosclerotic aortoiliac calcifications. No abdominal aortic aneurysm. Lymph nodes: Unremarkable. No enlarged lymph nodes. Urinary bladder: Unremarkable as visualized. Reproductive: Unremarkable as visualized. Bones/joints: Posterior instrumented fusion with vertical rods and bilateral pedicle screws and interbody cage graft at L4-L5 and L5-S1. L4 and L5 laminectomies. Diffuse osseous demineralization. Soft tissues: Subcutaneous fat stranding along the intergluteal cleft bilaterally. Small fat containing umbilical hernia. CT/CT kidney stone [id number] IMPRESSION: 1. No evidence of obstructive nephropathy. 2. Mild bilateral perinephric fat stranding is nonspecific and may be related to senescent changes, though underlying infection/inflammation is difficult to entirely exclude. Correlate with physical exam and laboratory findings. 3. Subcutaneous fat stranding along the intergluteal cleft may represent mild inflammation/edema. Correlate with physical exam findings. 4. Additional ancillary findings as above.
[2024-10-18 04:00] VITALS: BP 102/62; PULSE 90; RESP 19; TEMP 36.9; O2SAT 95
[2024-10-18 05:33] LABS: Hematocrit 37.3 % (36-47); Hemoglobin 12.50 g/dL (11.27-16.99); Mean Corpuscular HGB Conc 33.5 g/dL (30-55); Mean Corpuscular Hemoglobin 29.3 pg (27-33); Mean Corpuscular Volume 87.6 fl (85-98); Nucleated Red Blood Cells % 0 %; Platelet Count 226 10^3/cmm (157-399); Red Blood Count 4.26 10^6/uL (3.85-5.65); White Blood Count 12.69 10^3/uL (3.29-11.43)
[2024-10-18 05:52] LABS: Alanine Aminotransferase 72 U/L (0-33); Albumin Level 2.8 g/dL (3.5-5.2); Alkaline Phosphatase 160 U/L (35-105); Anion Gap 18.4 (5-19); Aspartate Amino Transferase 103 U/L (0-32); Blood Urea Nitrogen 24 mg/dL (8-23); Calcium 8.8 mg/dL (8.5-10.5); Carbon Dioxide 18 mmol/L (22-29); Chloride 102 mmol/L (98-107); Creatinine Clr Calc Pharmacy 45.9940; Globulin 3.0 g/dL (1.3-4.6); Glucose 168 mg/dL (65-115); Osmolality Calculated 286 mOsm/kg (285-295); Potassium 4.4 mmol/L (3.5-5.1); Sodium 134 mmol/L (136-145); Total Protein 5.8 g/dL (6.6-8.7)
[2024-10-18] MEDS: oxybutynin chloride XL 5 MG TABLET 10 MG PO (06:18)
[2024-10-18 07:53] VITALS: BP 150/67; PULSE 86; RESP 17; TEMP 37.4; O2SAT 94
--- NOTE | 2024-10-18 08:59 | P.PN_ITS ---
Subjective 2 Subjective: She was alert and fully oriented today. She has been working with PT. She is willing to go to rehab. No acute complaints today. Vitals/I&O/Wt Last Vital Signs Temp 99.3 F 10/18/24 07:53 Pulse 86 10/18/24 07:53 Resp 17 10/18/24 07:53 BP 150/67 10/18/24 07:53 Pulse Ox 94 10/18/24 07:53 O2 Del Method Room Air 10/18/24 04:00 10/17/24 10/18/24 10/18/24 22:59 06:59 14:59 Intake Total 0 / 1000 0 / 1000 Balance 0 / 1000 0 / 1000 Weight last 48 hrs Weight 75.75 kg Weight 72.575 kg Physical Exam 2 Narrative: GEN: Alert, no acute distress Neuro: Alert, oriented x 3, chronic left hemiparesis (flaccid), right lower extremity 2/5. Sensory loss left upper and lower extremities. HEENT: Normocephalic, atraumatic, PERRLA Neck: Supple Cardio: S1, S2, regular rate and rhythm, no murmur Respiratory: No respiratory distress, clear to auscultation bilaterally Abdomen: Soft, nontender, nondistended, normoactive bowel sounds Extremity, no edema Skin, skin tears left forearm, superficial ulcer distal left lower leg Data 10/18/24 04:26 10/18/24 04:26 A&P Assessment and plan (1) Altered mental status: Acute metabolic encephalopathy: Present on admission. Family-noted confusion and not fully oriented. Secondary to UTI and SHAKIR Alert and fully oriented today Oxycodone IR was decreased to 5 mg every 8 as needed, and baclofen on hold Monitor mental status (2) Acute cystitis: Acute urinary tract infection with bilateral pyelonephritis Mild bilateral perinephric stranding on CT; no evidence of obstructive uropathy Urine culture growing GNR, follow-up final result ? Continue ceftriaxone (3) Acute kidney injury: Secondary to dehydration and infection Creatinine 1.7 on admission, improved to 1.1 today Will discontinue IV fluids Holding benazepril and bumetanide Plan Hyponatremia ? Improved with IV fluids #Monitor Hyperkalemia ? Potassium was 5.1 yesterday, 4.4 today ? Holding FELICITA inhibitor History of CVA with residual deficit ? History of CVA over 20 years ago with right-sided weakness ? Subacute right frontal ischemic stroke on last admission with flaccid left- sided hemiparesis ?She was able to stand pivot and transfer to her motorized wheelchair and she is unable to do this now ? She has been working with physical therapy this admission ?She is willing to go to rehab at this time, continue PT OT ? Continue aspirin and atorvastatin Pressure ulcer and skin tears: She has gluteal pressure sore; exam shows leg ulcer, skin tears, bruises. - Frequent repositioning; specialty mattress. - Monitor for infection. Dehydration : From poor oral intake. - She was on IV fluids which discontinued today - Encourage oral fluids when awake. Type 2 diabetes mellitus: On Lantus 20 units daily given decreased oral intake. Monitor POC Glucose. Hypertension ? Benazepril and bumetanide on hold due to SHAKIR Hypothyroidism ? Levothyroxine PDMP PDMP Reviewed: Not Reviewed Attestations 2 Medical Necessity Statement*: Patient requires continued hospitalization for IV antibiotics. Coding Level of Care Code 16942 Diagnoses Altered mental status R41.82 Acute cystitis N30.00 Acute kidney injury N17.9
[2024-10-18] MEDS: cefTRIAXone 1,000 mg SDV 1000 MG IVP (09:00)
[2024-10-18 11:32] VITALS: BP 150/79; PULSE 74; RESP 19; TEMP 37; O2SAT 94
--- OUTSIDE RECORDS SUMMARY | 2024-10-18 12:11 | XMS_ITS | Encounter Summary ---
Author Organization [facility] Address [address] [place] [address] Care Team Providers Care Refuse Laborer Name Role Phone Sari Blankenship DO Primary Care Provider Reason for Visit * Reason Comments Information Encounter Details Date Type Department Care Team (Late st Contact Info) Description 10/17/2024 Telephone [facility] [place] [address] [place] [address] Sari Blankenship DO [address] [place] [address] Information Social History Tobacco Use Types Packs/Day Years Used Date Smoking Tobacco: Every Day Cigarettes Passive Smoke Exposure: Current Smokeless Tobacco: Never Alcohol Use Standard Drinks/Week Comments No 0 (1 standard drink = 0.6 oz pur e alcohol) Financial Resource Strain Answer Date R ecorded How hard is it for you to pa y for the very basics like food, housing, medical care, and heating? Not hard at all 06/25/2022 Food Insecurity Answer Date Recorded In the past 12 months, have you worried that your food would run out before you had money to buy more? Sometimes true 2022 In the past 12 months, did y ou run out of food and didn't have money to buy more? Never true 06/25/2022 Transportation Needs Answer Date Record ed In the past 12 months, has l ack of transportation kept you from medical appointments or from getting medications? Yes 06/25/2022 Lack of Transportation (Non-Medical) Not on file 06/25/2022 Feeling Safe Answer Date Recorded Are you in a relationship wi th someone who hurts you emotionally and/or physically? No 10/02/2024 Comments No Sex and Gender Information Value Date Recorded Sex Assigned at Not on file Legal Sex Female 6:[address] JUSTICE Gender Identity Not on file Sexual Orientation Not on file documented as of this encounter Miscellaneous Notes * Telephone Encounter - Ally Craft - 10/17/2024 10:37 AM CDT Copied from [facility] #[id number]. Topic: Reschedule/Cancel Appointment/Late Arrival >> Oct 17, 2024 10:35 AM Ally Todd wrote: Caller is calling to inform clinic of late arrival. Call Notes: Patient had an accident on herself and is running late. documented in this encounter Plan of Treatment Not on file documented as of this encounter Visit Diagnoses Not on filedocumented in this encounter Care Teams Refuse Laborer Relationship Specialty Start Date End Date Sari Blankenship DO [address] [place] [id number] PCP - General Family Practice 02/18/18 documented as of this encounter
--- OUTSIDE RECORDS SUMMARY | 2024-10-18 12:11 | XMS_ITS | Clinical Summary ---
Author Organization [facility] Address [address] [address] Phone Care Team Providers Care Ornamental Iron Erector Name Role Phone Sari Blankenship DO Primary Care Provider Allergies Active Allergy Reactions Criticality Noted Date Comments Apixaban Rash Low 03/02/2019 Pregabalin Other (See Comments) 08/18/2018 [address] Pulbent-Mxz-Qds Reductase Inhibitors Muscle Pain Low 10/13/2020 She reports she has tried lipitor and many others and she won't take these anymore Medications insulin detemir U-100 (LEVEMIR) 100 unit/mL pen syringeIndication s:Type 2 diabetes mellitus with diabetic polyneuropathy, with long-term current use of insulin ([facility]) Inject 40 Units by subcutaneous injection [...] polyneuropathy, with long-term current use of insulin ([facility]) USE TO CHECK BLOOD SUGAR THREE [...] 21 Active fluticasone propionate (FLONASE) 50 mcg/spray [place], Suspension nasal inhaler Administer 2 Sprays in [...] 66.7 kg (147 lb) 03/28/2020 10:05 AM CATTYMAN Height 157.5 cm (5' 2 ) 03/28/2020 10:05 AM CATTYMAN Body Mass Index 26.89 03/28/2020 10:05 AM CATTYMAN Plan of Treatment Health Maintenance Due Date [...] disease, without long-term current use of insulin ([facility]) HEMOGLOBIN A1C Routine 09/05/2020 11:11 AM CDT Type 2 diabetes mellitus with stage 3a chronic kidney disease, without long-term current use of insulin ([facility]) MICROALBUMIN/CREATIN INE RATIO, RANDOM UR Routine 05/19/2018 1:01 PM CATTYMAN Type 2 diabetes mellitus with diabetic polyneuropathy, with long-term current use of insulin ([facility]) from Last 3 Months or Most Recently Relevant to Health Maintenance Results * HEMOGLOBIN A1C (09/05/2020 11:11 AM CDT) HEMOGLOBIN A1C 5.6 See Comment % 09/05/2020 8:59 PM CDT [facility] EST. AVG GLUCOSE, A1C 114 mg/dL 09/05/2020 8:59 PM CDT [facility] Blood Venipuncture / Unknown 09/05/2020 11:11 AM CDT 09/05/2020 8:[address] [facility] - 09/05/2020 8:59 PM CDT HGB A1C INTERPRETATION NORMAL: <5.7% PRE-DIABETES: 5.7 - 6.4% DIABETES: 6.5% OR GREATER Falsely low A1C measurements can occur when: 1. Anemia and/or hemolytic anemia is present. 2. Hemoglobin variants present. 3. Renal failure. 4. Transfusion of blood product in the last 120 days. We recommend ordering a fructosamine test([id number]) to more accurately assess glycemic status if any of the above conditions are present. Sari Blankenship DO CHEMISTRY ORDERABLES Final Result [facility] CLIA# [id number] [address] [place] [address] * (ABNORMAL) LIPID PANEL (09/05/2020 11:11 AM CDT) CHOLESTEROL 177 <200 mg/dL 09/05/2020 9:12 PM CDT [facility] TRIGLYCERIDE 142 <150 mg/dL 09/05/2020 9:12 PM CDT [facility] HDL 42 40 - 59 mg/dL 09/05/2020 9:12 PM T [facility] LDL CALCULATED 107(H) <100 mg/dL 09/05/2020 9:12 PM CDT [facility] NON-HDL CHOLESTEROL 135(H) <130 mg/dL 09/05/2020 9:12 PM T [facility] Blood Venipuncture / Unknown 09/05/2020 11:11 AM CDT 09/05/2020 8:[address] [facility] - 09/05/2020 9:12 PM [...] Sari Blankenship DO CHEMISTRY ORDERABLES Final Result [facility] IA# [id number] [address] [place] [address] * MICROALBUMIN/CREATININE RATIO, RANDOM UR (05/19/2018 1:01 PM CATTYMAN) MICROALBUMIN, URINE <1.2 No Reference Range mg/dL 05/19/2018 9:20 PM [facility] CREATININE, URINE 30.8 29.0 - 226.0 mg/dL 05/19/2018 9:20 PM [facility] Comment: Reference Range varies with fluid intake and diet. Urine URINE SPECIMEN OBTAINED BY CLEAN CATCH PROCEDURE / Unknown Collection / Unknown 05/19/2018 1:01 PM CATTYMAN 05/19/2018 7:41 PM CATTYMAN Neema [facility] - 05/19/2018 9:20 PM CATTYMAN Condition Microalbumin/Creat ratio Normal Males <17 Normal Females <25 Microalbuminuria Males 17-299 Microalbuminuria Females 25-299 Overt proteinuria >=300 Unable to calculate urine microalbumin/creatinine ratio because urine microalbumin result is outside of reportable range. Sari Blankenship DO URINE ORDERABLES Final Resu lt [facility]# [id number] [address] [place] [address] from Last 3 Months or Most Recently Relevant to Health Maintenance Insurance MEDICARE PART A AND B MEDICAID [place] Care Teams Ornamental Iron Erector Relationship Specialty Start Date End Date Sari Blankenship DO [address] [place] [address] PCP - General Family Practice 02/18/18
--- OUTSIDE RECORDS SUMMARY | 2024-10-18 12:11 | XMS_ITS | Encounter Summary ---
Author Organization [facility] Address [address] [place] [address] Care Team Providers Care Client Partner Name Role Phone Sari Blankenship DO Primary Care Provider [phone] Encounter Details Date Type Department Care Team (Late st Contact Info) Description 10/17/2024 External Device Data [place] ABSTRACTION Provider, Abstract NO ADDRESS ON FILE Social History Tobacco Use Types Packs/Day Years [...] on file Legal Sex Female 6:22 AM DEVELOPMENT TECHNICIAN Gender Identity Not on file Sexual Orientation Not on file documented as of this encounter Plan of Treatment Not on file documented as of this encounter Visit Diagnoses Not on filedocumented in this encounter Care Teams Client Partner Relationship Specialty Start Date End Date Sari Blankenship DO [address] [place] [address] PCP - General Family Practice 02/18/18 documented as of this encounter
--- OUTSIDE RECORDS SUMMARY | 2024-10-18 12:11 | XMS_ITS | Encounter Summary ---
Author Organization [facility] Address [address] 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
--- OUTSIDE RECORDS SUMMARY | 2024-10-18 12:11 | XMS_ITS | Encounter Summary ---
Author Organization [facility] Address [address] [place] [address] Care Team Providers Care Senior Gl Accountant Name Role Phone Sari Blankenship DO Primary Care Provider Reason for Visit * Reason Onset Date Comments Provider Call Home Health after hospital admission 10/13/2024 Encounter Details Date Type Department Care Team (Late st Contact Info) Description 10/13/2024 Telephone [facility] Medicine [place] [address] [place] [address] Sari Blankenship DO [address] [place] [address] Provider Call; Home Health after hospital admission Social History Tobacco Use Types Packs/Day Years [...] on file 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 Inquired if the patient would be sent home on any IV medications. She stated that the patient presented with weakness from previous stroke and the recommendation is for nursing visits, PT and OT. Informed Bobby that Dr Blankenship will follow for home health. She voiced her understanding. * Telephone Encounter - Maye Galvan - 10/13/2024 1:19 PM CDT Copied from [facility] #[id number]. Topic: [id number] Call >> Oct 13, 2024 1:18 PM Maye Gold wrote: Caller is requesting to speak with Clinical Care Team. Caller Name: steph with [facility] Callback Number: [phone] Clinician Type: Home Health Co-worker Call Notes: calling to see if PCP will sign and follow for home health please call Is this addressing an immediate patient care need? No documented in this encounter Plan of Treatment Not on file documented as of this encounter Visit Diagnoses Not on filedocumented in this encounter Care Teams Senior Gl Accountant Relationship Specialty Start Date End Date Sari Blankenship DO [address] [place] [address] PCP - General Family Practice 02/18/18 documented as of this encounter
--- OUTSIDE RECORDS SUMMARY | 2024-10-18 12:11 | XMS_ITS | Encounter Summary ---
Author Organization [facility] Address 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 Topic: Reschedule/Cancel Appointment/Late Arrival >> Oct 11, 2024 1:19 PM Hilary Irby wrote: Caller is requesting to reschedule/cancel a hospital follow up. Caller Name: Fabricio (on [facility]) Callback Number: [phone] Call Notes: Patient is back in the hospital ([facility]) because she had a stroke. She will be going to a rehab facility when she is discharged. Is patient requesting to schedule? No documented in this encounter Plan of Treatment Not on file documented as of this encounter Visit Diagnoses Not on filedocumented in this encounter Care Teams Ferryboat Operator Relationship Specialty Start Date End Date Sari Blankenship DO [address] [place] [address] PCP - General Family Practice 02/18/18 documented as of this encounter
--- OUTSIDE RECORDS SUMMARY | 2024-10-18 12:11 | XMS_ITS | Encounter Summary ---
Author Organization [facility] Address 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 Gender Identity Not on file Sexual Orientation Not on file documented as of this encounter Plan of Treatment Not on file documented as of this encounter Procedures Procedure Name Priority Date/Time Associated Diagnosis Comments PROTIME-INR Routine 10/17/2024 documented in this encounter Results * PROTIME-INR (10/17/2024) ABSTRACTED PROTIME 15.0 ABSTRACTED INR 1.10 Blood 10/17/2024 us Abstract Provider HEMATOLOGY ORDERABLES Final Re sult documented in this encounter Visit Diagnoses Not on filedocumented in this encounter Care Teams Aquatic Performer Relationship Specialty Start Date End Date Sari Blankenship DO [address] [place] [address] PCP - General Family Practice 02/18/18 documented as of this encounter
--- OUTSIDE RECORDS SUMMARY | 2024-10-18 12:11 | XMS_ITS | Encounter Summary ---
Author Organization [facility] Address 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 Gender Identity Not on file Sexual Orientation Not on file documented as of this encounter Plan of Treatment Not on file documented as of this encounter Procedures Procedure Name Priority Date/Time Associated Diagnosis Comments LIPID PANEL Routine 10/11/2024 documented in this encounter Results * LIPID PANEL (10/11/2024) ABSTRACTED CHOLESTEROL 145 ABSTRACTED TRIGLYCERIDE 90 ABSTRACTED HDL 34 ABSTRACTED LDL CALCULATED 93 Blood 10/11/2024 us Abstract Provider CHEMISTRY ORDERABLES Final Res ult documented in this encounter Visit Diagnoses Not on filedocumented in this encounter Care Teams Machinist Relationship Specialty Start Date End Date Sari Blankenship DO [address] [place] [address] PCP - General Family Practice 02/18/18 documented as of this encounter
--- OUTSIDE RECORDS SUMMARY | 2024-10-18 12:11 | XMS_ITS | Encounter Summary ---
Author Organization [facility] Address 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 Gender Identity Not on file Sexual Orientation Not on file documented as of this encounter Plan of Treatment Not on file documented as of this encounter Procedures Procedure Name Priority Date/Time Associated Diagnosis Comments COMPREHENSIVE METABOLIC PANEL Routine 10/17/2024 11:12 AM CDT documented in this encounter Results * COMPREHENSIVE METABOLIC PANEL (10/17/2024 11:12 AM CDT) Blood us Abstract Provider CHEMISTRY ORDERABLES Final Res ult documented in this encounter Visit Diagnoses Not on filedocumented in this encounter Care Teams Bottle Selector Relationship Specialty Start Date End Date Sari Blankenship DO [address] [place] [address] PCP - General Family Practice 02/18/18 documented as of this encounter
--- OUTSIDE RECORDS SUMMARY | 2024-10-18 12:11 | XMS_ITS | Encounter Summary ---
Author Organization [facility] Address [address] [place] [address] Care Team Providers Care Drying Equipment Operator Name Role Phone Sari Blankenship DO Primary Care Provider [phone] Encounter Details Date Type Department Care Team (Late st Contact Info) Description 10/10/2024 Orders Only [facility] [address] 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 Gender Identity Not on file Sexual Orientation Not on file documented as of this encounter Plan of Treatment Not on file documented as of this encounter Procedures Procedure Name Priority Date/Time Associated Diagnosis Comments COMPREHENSIVE METABOLIC PANEL Routine 10/09/2024 12:03 PM CDT documented in this encounter Results * COMPREHENSIVE METABOLIC PANEL (10/09/2024 12:03 PM CDT) Blood us Abstract Provider CHEMISTRY ORDERABLES Final Res ult documented in this encounter Visit Diagnoses Not on filedocumented in this encounter Care Teams Drying Equipment Operator Relationship Specialty Start Date End Date Sari Blankenship DO [address] [place] [address] PCP - General Family Practice 02/18/18 documented as of this encounter
--- OUTSIDE RECORDS SUMMARY | 2024-10-18 12:11 | XMS_ITS | Clinical Summary ---
Author Organization [facility] Address [address] [place] [address] Phone Care Team Providers Care Configuration Management Administrator Name Role Phone Sari Blankenship DO Primary Care Provider Allergies Active Allergy Reactions Criticality Noted Date Comments Apixaban Rash Low 03/02/2019 Nitrofurantoin Monohyd/M-Cryst Rash Medium 09/17/2022 Pregabalin Other (See Comments) 08/18/2018 couldn't walk Vgeceik-Esk-Blr Reductase Inhibitors Muscle Pain Low 10/13/2020 She reports she has tried lipitor and many others and she won't take these anymore Medications acetaminophen (TYLENOL) 500 mg tabletIndications :Polymyalgia Take 1 Tablet (500 mg) by mouth 2 times daily as needed for Pain, Mild / Temperature. 60 Tablet 01/10/20 21 Active lancetsIndication s:Type 2 diabetes mellitus with diabetic polyneuropathy, with long-term current use of insulin ([facility]) USE TO CHECK BLOOD SUGAR THREE TIMES DAILY. 200 Each 11 01/16/20 21 Active ketoconazole (NIZORAL) 2 % CreamIndications: Onychomycosis APPLY EXTERNALLY TO THE AFFECTED AREA DAILY 60 Gram 06/25/19 22 Active nystatin (MYCOSTATIN) 100,000 unit/gram Cream APPLY TO RASH TWO TIMES DAILY NEEDED RASH 60 Gram 5 06/25/19 22 Active triamcinolone acetonide (KENALOG) 0.1 % CreamIndications: Healing wound Apply to affected area 2 times daily. 45 Gram 2 09/26/19 22 Active azelastine (OPTIVAR) 0.05 % solutionIndicatio ns:Dry eye Administer 1 Drop in both eyes 2 times daily. 6 mL 1 09/26/19 22 Active ofloxacin (OCUFLOX) 0.3 % solutionIndicatio ns:Otalgia of both ears PLACE 10 DROPS IN BOTH EARS DAILY. 10 mL 1 09/26/19 22 Active albuterol (PROVENTIL,VENTOL IN) 2.5 mg /3 mL (0.083 %) Solution for NebulizationIndic ations:Mixed simple and mucopurulent chronic bronchitis (CMS/HCC) Take 3 mL (2.5 mg) by inhalation every 6 hours as needed for Shortness of Breath. 99 Each 2 12/05/19 22 Active power wheelchairIndicat ions:Hemiplegia and hemiparesis f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 (CMS/HCC),Unstead y gait,Chronic midline thoracic back pain,Weakness of both legs Face to Face completed within 6 months: yes Length of Need: 99 months 1 Each 10/02/19 23 Active albuterol sulfate HFA 90 mcg/actuation aerosol inhaler INHALE 2 PUFFS BY MOUTH EVERY 6 HOURS NEEDED FOR SHORTNESS OF BREATH 17 Gram 11/04/19 23 Active Foam Bandage (Tendra Mepilex Border) 3 X 3 BandageIndication s:Pressure injury of right buttock, stage 2 (CMS/HCC) Apply on wound and change dressing daily 30 Each 2 12/08/19 23 Active potassium chloride (K-TAB) 20 mEq Extended Release tabletIndications :Bilateral lower extremity edema Take 1 tablet twice per day together with Bumex 60 Tablet 6 03/19/20 23 Active traZODone (DESYREL) 50 mg tabletIndications :Other insomnia TAKE 1 TABLET (50 MG) BY MOUTH DAILY AT BEDTIME. 90 Tablet 3 05/10/19 24 Active mupirocin calcium (BACTROBAN) 2 % CreamIndications: Open wound of both lower extremities, initial encounter apply TO affected AREA TWICE DAILY 30 Gram 2 05/22/19 24 Active ergocalciferol (VITAMIN D2) 50,000 unit capsuleIndication s:Vitamin D deficiency TAKE 1 CAPSULE BY MOUTH EVERY 2 WEEKS 6 Capsule 3 06/05/19 24 Active benazepriL (LOTENSIN) 20 mg tabletIndications :Essential hypertension Take 1 Tablet (20 mg) by mouth daily. 90 Tablet 3 08/19/19 24 Active levocetirizine (XYZAL) 5 mg tabletIndications :Non-seasonal allergic rhinitis due to other allergic trigger Take 1 Tablet (5 mg) by mouth late in the day. 30 Tablet 6 08/19/19 24 Active blood sugar diagnostic StripIndications: Type 2 diabetes mellitus with stage 3b chronic kidney disease, with long-term current use of insulin ([facility]) Use to check blood sugar TID. DX: E11.2, N18.31 100 Each 11 08/24/19 24 Active alcohol (BD Single Use Swabs Regular) Pads, Medicated USE TO SWAB SKIN PRIOR TO INSULIN INJECTIONS AND BLOOD SUGAR TESTS. 200 Each 11 11/04/19 24 Active bumetanide (BUMEX) 1 mg tabletIndications :Bilateral lower extremity edema take one tablet by mouth daily. 100 Tablet 3 11/24/19 24 Active carbamide peroxide (DEBROX) 6.5 % DropsIndications: Bilateral impacted cerumen Administer 5 Drops in left ear 2 times daily. 15 mL 1 12/16/19 24 Active montelukast (SINGULAIR) 10 mg tabletIndications :Allergic rhinitis, unspecified seasonality, unspecified trigger TAKE 1 TABLET BY MOUTH DAILY AT BEDTIME. 90 Tablet 2 12/21/19 24 Active Blood-Glucose MeterIndications: Type 2 diabetes mellitus with stage 3b chronic kidney disease, with long-term current use of insulin ([facility]) Use to monitor blood sugar daily as needed 1 Each 12/21/19 24 Active diclofenac sodium (VOLTAREN) 1 % gelIndications:Po lymyalgia APPLY 2 GRAMS TO AFFECTED AREA 4 TIMES DAILY. 200 Gram 3 12/31/19 24 Active oxyBUTYnin (DITROPAN XL) 10 mg Extended Release 24 hour tabletIndications :Mixed stress and urge urinary incontinence take 1 tablet by mouth daily 100 Tablet 3 02/14/20 24 Active Syringe with Needle, Disp, 3 mL 23 gauge x 1 1/2 SyringeIndication s:Neuropathy,Othe r fatigue Use monthly to inject medication. 24 Each 03/23/20 24 Active gabapentin (NEURONTIN) 100 mg capsuleIndication s:Neuropathy Take 1 Capsule (100 mg) by mouth 3 times daily. 270 Capsule 3 03/23/20 24 Active levothyroxine 50 mcg tabletIndications :Acquired hypothyroidism Take 1 Tablet (50 mcg) by mouth daily. 90 Tablet 3 03/27/20 24 Active esomeprazole (NexIUM) 40 mg Capsule, Delayed Release(E.C.)Rylee cations:Gastroeso phageal reflux disease without esophagitis Take 1 Capsule (40 mg) by mouth daily. 90 Capsule 3 03/28/20 24 Active cyanocobalamin 1,000 mcg TabletIndications :Vitamin B12 deficiency (non anemic) Take 1 Tablet (1,000 mcg) by mouth daily. 90 Tablet 3 06/15/19 25 Active ondansetron (ZOFRAN ODT) 8 mg Tablet, Rapid DissolveIndicatio ns:Chronic nausea Dissolve 1 tablet on top of tongue then swallow with saliva every 8 hours as needed for nausea or vomiting 30 Tablet 3 06/15/19 25 Active Trulicity 4.5 mg/0.5 mL injectionIndicati ons:Type 2 diabetes mellitus with stage 3b chronic kidney disease, with long-term current use of insulin ([facility]) Inject 0.5 ML under the skin EVERY SEVEN DAYS 2 mL 3 07/21/19 25 Active linaGLIPtin (Tradjenta) 5 mg Tablet TAKE ONE TABLET BY MOUTH EVERY 24 hours. 100 Tablet 2 08/15/19 25 Active tiZANidine (ZANAFLEX) 4 mg TabletIndications :Polymyalgia TAKE 2 TABLETS BY MOUTH EVERY 6 HOURS NEEDED FOR SPASM 240 Tablet 3 08/15/19 25 Active Tresiba FlexTouch U-200 200 unit/mL (3 mL) pen syringeIndication s:Type 2 diabetes mellitus with stage 3b chronic kidney disease, with long-term current use of insulin ([facility]) Inject 40 units under the skin DAILY with breakfast. 18 mL 3 08/15/19 25 Active oxyCODONE (ROXICODONE) 10 mg tabletIndications :Chronic midline low back pain with bilateral sciatica TAKE ONE TABLET BY MOUTH THREE TIMES DAILY NEEDED FOR pain. Max daily AMOUNT: THREE TABLETS. 90 Tablet 09/30/19 25 Active lidocaine (LIDODERM) 5 % Adhesive Patch, MedicatedIndicati ons:Chronic midline low back pain with bilateral sciatica Apply 1 Patch to affected area every 24 hours. 30 Patch 3 10/05/19 25 Active fluticasone propionate (FLONASE) 50 mcg/spray [place], Suspension nasal inhaler ADMINISTER 2 SPRAYS IN EACH NOSTRIL DAILY. 16 Gram 10/09/19 25 Active fluticasone propionate (FLONASE) 50 mcg/spray [place], Suspension nasal inhaler ADMINISTER 2 SPRAYS IN EACH NOSTRIL DAILY. 16 Gram 3 06/28/19 25 2024 Discontinued oxyCODONE (ROXICODONE) 10 mg tabletIndications :Chronic midline low back pain with bilateral sciatica TAKE ONE TABLET BY MOUTH THREE TIMES DAILY NEEDED FOR pain. Max daily AMOUNT: THREE TABLETS. 90 Tablet 08/30/19 25 2024 Discontinued predniSONE (DELTASONE) 20 mg tabletIndications :Closed fracture of sacrum and coccyx with routine healing, subsequent encounter Take 1 Tablet (20 mg) by mouth 2 times daily with meals for 7 days. 14 Tablet 10/05/19 25 2024 Active Problems Problem Noted Date Diagnosed Date Fx sacrum/coccyx-closed 10/04/2024 Acquired hypothyroidism 03/27/2024 Vitamin B12 deficiency (non anemic) 03/26/2024 Neuropathy 03/23/2024 Mixed hyperlipidemia 12/16/2023 Dental decay 12/16/2023 Other insomnia 06/25/2022 Chronic osteoarthritis 12/25/2021 Chronic midline low back pain with bilateral sci atica 10/13/2020 Polymyalgia 10/13/2020 Refused influenza vaccine 10/13/2020 Statin intolerance 10/13/2020 Generalized anxiety disorder 10/12/2019 Tobacco use 09/04/2018 Type 2 DM with stage 3 chronic kidney disease GF R 30-59 09/04/2018 Gout 08/18/2018 Plantar fasciitis 08/18/2018 Onychomycosis 08/18/2018 Age-related osteoporosis wit hout current pathological fracture 08/18/2018 Mixed stress and urge urinary incontinence 05/19 Mixed simple and mucopurulent chronic bronchitis 02/20/2018 History of cerebrovascular a ccident (CVA) with residual deficit 02/20/2018 Chronic systolic (congestive) heart failure 07/2017 Hemiplegia and hemiparesis f 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 02/20/2018 Gastroesophageal reflux disease without esophagi tis 02/20/2018 Essential hypertension 02/20/2018 Resolved Problems Problem Noted Date Diagnosed Date Resolved Date Acute embolism and thrombosi s of unspecified deep veins of left proximal lower extremity 06/15/2019 09/11/2019 Fracture of foot 08/18/2018 09/16/2020 Encounters Date Type Department Care Team Description 10/18/2024 Abstract [facility] [address] [place] [address] Sari Blankenship, 10/18/2024 Orders Only [facility] [address] [place] [address] Provider, Abstract 10/17/2024 External Device Data [facility] ABSTRACTION Provider, Abstract 10/17/2024 Abstract [facility] [address] [place] [address] Sari Blankenship, 10/17/2024 Orders Only [facility] [address] [place] [address] Provider, Abstract 10/17/2024 Telephone [facility] [address] [place] [phone] Sari Blankenship, Information 10/16/2024 External Device Data Initial Department [address] [place] [address] Dr SANON: [place] [address] [facility], 10/13/2024 Telephone [facility] [address] [place] [phone] Sari Blankenship DO Provider Call; Home Health after hospital admission 10/11/2024 Telephone [facility] [address] [place] [phone] Sari Blankenship DO Appointment Notification 10/10/2024 Orders Only [facility] [address] [place] [address] Provider, Abstract 10/08/2024 Refill [facility] [address] [place] [address] Sari Blankenship, 10/04/2024 Orders Only [facility] [address] [place] [address] Nolan Iqbal, FARM EQUIPMENT ENGINEER Closed fracture of sacrum and coccyx with routine healing, subsequent encounter (Primary Dx) 10/04/2024 Orders Only [facility] [address] [place] [address] Nolan Iqbal, FARM EQUIPMENT ENGINEER Chronic midline low back pain with bilateral sciatica (Primary Dx) 10/04/2024 Telephone [facility] [address] [place] [address] Sari Blankenship, DO Medication Assistance 10/04/2024 Telephone [facility] [address] [place] [address] Sari Blankenship, DO Tailbone Pain; Patient Communication 10/04/2024 External Device Data [facility] ABSTRACTION Provider, Abstract 10/03/2024 External Device Data [facility] ABSTRACTION Provider, Abstract 10/03/2024 External Device Data [facility] ABSTRACTION Provider, Abstract 10/02/2024 9:00 AM CDT - 10/02/2024 12:38 PM CDT Emergency [facility] [address] [place] [address] Luis Anotnio Sultana MD Closed fracture of sacrum and coccyx, initial encounter ([facility]) (Primary Dx) Discharge Disposition: Home or Self Care 10/02/2024 Travel 09/28/2024 Refill [facility] [address] [place] [address] Sari Blankenship, Chronic midline low back pain with bilateral sciatica 09/26/2024 External Device Data [facility] ABSTRACTION Provider, Abstract 09/20/2024 External Device Data [facility] ABSTRACTION Provider, Abstract 09/18/2024 Telephone [facility] [address] [place] [address] Sari Blankenship, DO Provider Call 09/07/2024 External Device Data [facility] ABSTRACTION Provider, Abstract 09/06/2024 External Device Data [facility] ABSTRACTION Provider, Abstract 09/04/2024 Telephone [facility] [address] [place] [address] Sari Blankenship, DO Clinical Consult Before Scheduling 08/29/2024 [facility] [address] [place] [address] Sari Blankenship, Chronic midline low back pain with bilateral sciatica 08/15/2024 External Device Data [facility] ABSTRACTION Provider, Abstract 08/14/2024 [facility] [address] [place] [address] Nolan Iqbal, FARM EQUIPMENT ENGINEER Type 2 diabetes mellitus with stage 3b chronic kidney disease, with long-term current use of insulin ([facility]); Allergic rhinitis, unspecified seasonality, unspecified trigger 08/14/2024 [facility] [address] [place] [address] Sari Blankenship DO Polymyalgia 07/25/2024 [facility] [address] [place] [address] Sari Blankenship DO Chronic midline low back pain with bilateral sciatica 07/20/2024 [facility] [address] [place] [address] Nolan Iqbal, FARM EQUIPMENT ENGINEER Type 2 diabetes mellitus with stage 3b chronic kidney disease, with long-term current use of insulin ([facility]) from Last 3 Months Social History Tobacco Use Types Packs/Day Years Used Date Smoking Tobacco: Every Day Cigarettes Passive Smoke Exposure: Current Smokeless Tobacco: Never Tobacco Cessation:Ready to Q uit: No; Counseling Given: Yes Alcohol Use Standard Drinks/Week Comments No 0 [...] on file Legal Sex Female 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 Gender Identity Not on file Sexual Orientation Not on file Last Filed Vital Signs Vital Sign Reading Time Taken Comments Blood Pressure 185/92 10/02/2024 12:00 PM CDT Pulse 97 10/02/2024 12:00 PM CDT Temperature 36.6 C (97.8 F) 10/02/2024 9:01 AM CDT Respiratory Rate 20 10/02/2024 11:0 0 AM CDT Oxygen Saturation 94% 10/02/2024 12: 00 PM CDT Inhaled Oxygen Concentration - - Weight 79.3 kg (174 lb 12.8 oz) 10/02/2024 9:01 AM CDT Height 157.5 cm (5' 2 ) 10/02/2024 9:01 AM CDT Body Mass Index 31.97 10/02/2024 9:01 AM CDT Plan of Treatment Health Maintenance Due Date Last Done Comments DTAP/TDAP/TD VACCINES (1 - Tdap) 1974 PNEUMOCOCCAL VACCINE 50+ YEA RS (1 of 2 - PCV) 1974 COLORECTAL SCREENING 02/07/2000 Colorectal Cancer Screening 02/07/2000 FIT-DNA Q 3 years 02/07/2000 FIT/FOBT Q 1 year 02/07/2000 Flex Sig/CT Colonography Q 5 years 02/07/2000 ZOSTER VACCINE (1 of 2) 2005 RSV VACCINE (60+ or ) (1 - Risk 60-74 years 1-dose series) 2015 BREAST CANCER SCREENING 08/14/2015 08/13/2014 DIABETES ANNUAL RETINAL EXAM 01/07/2018, 01/06/2017, 08/03/2016, Additional history exists OSTEOPOROSIS SCREENING 02/07/2020 KHE uACR (Auto Order) 04/19/2024 10/15/2023 , 09/03/2022, 05/19/2018 [place] Preventative Visit/Annual Wellness Visit 04/19/2024 08/19/2023, 06/25/2022 DIABETES ANNUAL FOOT EXAM 08/18/2024 08/19/2023, DIABETES HBA1C Q 6 MONTHS 09/21/20242023, 12/16/2023, 08/19/2023, Additional history exists DIABETES MICROALBUMIN ANNUAL SCREEN 10/14/2024 10/15/2023, 09/03/2022, 05/19/2018 INFLUENZA VACCINE (#1) 2024 , 03/18/2023, 01/09/2021, Additional history exists DIABETES: A1C (Auto Order) 03/23/202503/23, 12/16/2023, 08/19/2023, Additional history exists LDL CHOLESTEROL ANNUAL 10/11/2025 , 03/23/2024, 12/16/2023, Additional history exists KHE eGFR (Auto Order) Completed 10/17/2024 , 10/13/2024, 10/09/2024, Additional history exists Procedures Procedure Name Priority Date/Time Associated Diagnosis Comments COMPREHENSIVE METABOLIC PANEL Routine 10/17/2024 11:12 AM CDT PROTIME-INR Routine 10/17/2024 COMPREHENSIVE METABOLIC PANEL Routine 10/13/2024 11:06 AM CDT LIPID PANEL Routine 10/11/2024 COMPREHENSIVE METABOLIC PANEL Routine 10/09/2024 12:[address] CERVICAL SPINE WO CONTRAST Stat 10/02/2024 11:04 AM CDT XR THORACIC SPINE 2 VW Stat 10:50 AM CDT XR SACRUM AND COCCYX Stat 10/02/2024 10:50 AM CDT XR LUMBAR SPINE 2 OR 3 VW Stat 10/02/2024 10:50 AM CDT HEMOGLOBIN A1C Routine 03/23/2024 11:41 AM EFFICIENCY EXPERT Type 2 diabetes mellitus with stage 3b chronic kidney disease, with long-term current use of insulin ([facility]) Other fatigue MICROALBUMIN/CREATININ E RATIO, RANDOM UR Routine 10/15/2023 1:27 PM CDT Type 2 diabetes mellitus with stage 3b chronic kidney disease, with long-term current use of insulin ([facility]) from Last 3 Months or Most Recently Relevant to Health Maintenance Results * COMPREHENSIVE METABOLIC PANEL (10/17/2024 11:12 AM CDT) Only the most recent of3 resultswithin the time period is included. Blood us Abstract Provider CHEMISTRY ORDERABLES Final Res ult * PROTIME-INR (10/17/2024) ABSTRACTED PROTIME 15.0 ABSTRACTED INR 1.10 Blood 10/17/2024 us Abstract Provider HEMATOLOGY ORDERABLES Final Re sult * LIPID PANEL (10/11/2024) ABSTRACTED CHOLESTEROL 145 ABSTRACTED TRIGLYCERIDE 90 ABSTRACTED HDL 34 ABSTRACTED LDL CALCULATED 93 Blood 10/11/2024 us Abstract Provider CHEMISTRY ORDERABLES Final Res ult * CT CERVICAL SPINE WO CONTRAST (10/02/2024 11:04 AM CDT) Anatomical Region Laterality Modality Spine Computed Tomogra phy 10/02/2024 10:5 2 AM CDT Impressions 10/02/2024 11:28 AM CDT IMPRESSION: Please see below. Exam: CT CERVICAL SPINE WO CONTRAST Date/Time of Exam: 10/02/2024 11:04 AM Reason For Exam: Neck trauma (Age >= 65y). Diagnosis: See Reason for Exam. Technique: Helical axial images were obtained with sagittal and coronal reformations. Comparison: None. FINDINGS: Examination is limited due to suboptimal patient positioning. Straightened lordosis and leftward tilt. Findings of prior grossly intact appearing C4-C7 anterior fusion. Prominent disc degeneration at junctional C7-T1 level. Severe facet arthropathy on the left at junctional C3-4. Facet ankylosis C2-3. Atlantoaxial arthropathy. Prevertebral soft tissues appear within normal limits. No traumatic subluxation. Axial images show no visible fracture. Paraspinous soft tissues show no acute abnormality. Visualized lung apices grossly clear. IMPRESSION: No evidence of acute fracture or traumatic subluxation. Postoperative and degenerative changes as detailed. Narrative Procedure Note Myke Cottrell, DO - 10/02/2024 IMPRESSION: Please see below. Exam: CT CERVICAL SPINE WO CONTRAST Date/Time of Exam: 10/02/2024 11:04 AM Reason For Exam: Neck trauma (Age >= 65y). Diagnosis: See Reason for Exam. Technique: Helical axial images were obtained with sagittal and coronal reformations. Comparison: None. FINDINGS: Examination is limited due to suboptimal patient positioning. Straightened lordosis and leftward tilt. Findings of prior grossly intact appearing C4-C7 anterior fusion. Prominent disc degeneration at junctional C7-T1 level. Severe facet arthropathy on the left at junctional C3-4. Facet ankylosis C2-3. Atlantoaxial arthropathy. Prevertebral soft tissues appear within normal limits. No traumatic subluxation. Axial images show no visible fracture. Paraspinous soft tissues show no acute abnormality. Visualized lung apices grossly clear. IMPRESSION: No evidence of acute fracture or traumatic subluxation. Postoperative and degenerative changes as detailed. us Luis Antonio Sultana MD CT ORDERABLES Final Re sult * XR SACRUM AND COCCYX (10/02/2024 10:50 AM CDT) Anatomical Region Laterality Modality Pelvis Computed Radiogr aphy 10/02/2024 11:1 0 AM CDT Impressions 10/02/2024 11:40 AM CDT IMPRESSION: Possible nondisplaced or minimally displaced fracture of the inferior aspect of the sacrum. Narrative 10/02/2024 11:40 AM CDT EXAM: XR SACRUM AND COCCYX DIAGNOSIS/REASON FOR EXAM: Fall. DATE AND TIME: 10/02/2024, 10:50 AM. COMPARISON: None. TECHNIQUE: AP inlet view, AP outlet view, and lateral views of the sacrum and coccyx. FINDINGS: There is a possible fracture of the distal tip of the sacrum near the sacrococcygeal articulation. The coccyx is mildly angulated anteriorly. The sacral arcuate lines are intact. The bones appear diffusely demineralized. Fusion hardware is seen within the lower lumbosacral spine. The arteries the bilateral lower extremities contain a moderate amount of calcified plaque. Procedure Note Dion Shelton MD - 10/02/2024 EXAM: XR SACRUM AND COCCYX DIAGNOSIS/REASON FOR EXAM: Fall. DATE AND TIME: 10/02/2024, 10:50 AM. COMPARISON: None. TECHNIQUE: AP inlet view, AP outlet view, and lateral views of the sacrum and coccyx. FINDINGS: There is a possible fracture of the distal tip of the sacrum near the sacrococcygeal articulation. The coccyx is mildly angulated anteriorly. The sacral arcuate lines are intact. The bones appear diffusely demineralized. Fusion hardware is seen within the lower lumbosacral spine. The arteries the bilateral lower extremities contain a moderate amount of calcified plaque. IMPRESSION: Possible nondisplaced or minimally displaced fracture of the inferior aspect of the sacrum. us Luis Antonio Sultana MD DIAGNOSTIC IMAGING ORDER [place] Final Result * XR LUMBAR SPINE 2 OR 3 VW (10/02/2024 10:50 AM CDT) Anatomical Region Laterality Modality Spine Computed Radiogr aphy 10/02/2024 11:0 9 AM CDT Impressions 10/02/2024 11:38 AM CDT IMPRESSION: 1. No identified fracture of the lumbar spine. 2. Grade 1 retrolisthesis of L3 on L4 measures 3 mm. 3. Multilevel [id number]-bxzfxmxo degenerative changes of the thoracolumbar spine. 4. Stable posterior fusion of the lumbosacral spine at L4, L5, and S1. 5. Marked atherosclerosis. Narrative 10/02/2024 11:38 AM CDT EXAM: XR LUMBAR SPINE 2 OR 3 VW DIAGNOSIS/REASON FOR EXAM: Fall. DATE AND TIME: 10/02/2024, 10:50 AM. COMPARISON: None. TECHNIQUE: AP and lateral views of the lumbar spine. FINDINGS: Posterior fusion hardware transfixes L4, L5, and S1. Intervertebral disc spacers are present at L4-L5 and L5-S1. There is no evidence of hardware failure or loosening. The bones appear diffusely demineralized. No fracture or loss of vertebral body height is seen. Retrolisthesis of L3 on L4 measures 3 mm. Intervertebral disc height is mildly to moderately narrowed at L3-L4. Intervertebral disc height is mildly narrowed at L1-L2. There are kixe-zs-duuteoen degenerative changes of the thoracolumbar spine. The proximal abdominal aorta and iliac arteries contain a large amount of calcified plaque. Procedure Note Dion Shelton MD - 10/02/2024 EXAM: XR LUMBAR SPINE 2 OR 3 VW DIAGNOSIS/REASON FOR EXAM: Fall. DATE AND TIME: 10/02/2024, 10:50 AM. COMPARISON: None. TECHNIQUE: AP and lateral views of the lumbar spine. FINDINGS: Posterior fusion hardware transfixes L4, L5, and S1. Intervertebral disc spacers are present at L4-L5 and L5-S1. There is no evidence of hardware failure or loosening. The bones appear diffusely demineralized. No fracture or loss of vertebral body height is seen. Retrolisthesis of L3 on L4 measures 3 mm. Intervertebral disc height is mildly to moderately narrowed at L3-L4. Intervertebral disc height is mildly narrowed at L1-L2. There are [id number]-taitfvvg degenerative changes of the thoracolumbar spine. The proximal abdominal aorta and iliac arteries contain a large amount of calcified plaque. IMPRESSION: 1. No identified fracture of the lumbar spine. 2. Grade 1 retrolisthesis of L3 on L4 measures 3 mm. 3. Multilevel [id number]-kg-rzcvahbd degenerative changes of the thoracolumbar spine. 4. Stable posterior fusion of the lumbosacral spine at L4, L5, and S1. 5. Marked atherosclerosis. Luis Antonio Sultana MD DIAGNOSTIC IMAGING ORDER [place] Final Result * (ABNORMAL) HEMOGLOBIN A1C (03/23/2024 11:41 AM EFFICIENCY EXPERT) HEMOGLOBIN A1C 7.6(H) <5.7 % of total Hgb [facility] Comment: For someone without known diabetes, a hemoglobin A1c value of 6.5% or greater indicates that they may have diabetes and this should be confirmed with a follow-up test. For someone with known diabetes, a value <7% indicates that their diabetes is well controlled and a value greater than or equal to 7% indicates suboptimal control. A1c targets should be individualized based on duration of diabetes, age, comorbid conditions, and other considerations. Currently, no consensus exists regarding use of hemoglobin A1c for diagnosis of diabetes for children. ESTIMATED AVERAGE GLUCOSE (MG/DL) 171 mg/dL [facility] ESTIMATED AVERAGE GLUCOSE (MMOL/L) 9.5 mmol/L [facility] Comment: FASTING:UNKNOWN FASTING: UNKNOWN Test Performed at: [facility] [address] [place] [address] Franco Sparks MD Blood 03/23/2024 11:4 1 AM EFFICIENCY EXPERT 03/23/2024 11:42 AM EFFICIENCY EXPERT Nolan RODGERS CHEMISTRY ORDERABLES Final Result [facility] [phone] [facility] [address] [place] [address] * MICROALBUMIN/CREATININE RATIO, RANDOM UR (10/15/2023 1:27 PM CDT) Creatinine, Urine 27 20 - 275 mg/dL [facility] MICROALBUMIN, URINE 0.5 See Note: mg/dL [facility] Comment: Reference Range: Reference Range Not established MICROALBUMIN/CREAT RATIO, UR 19 <30 mg/g creat [facility] Comment: The ADA defines abnormalities in albumin excretion as follows: Albuminuria Category Result (mg/g creatinine) Normal to Mildly increased <30 Moderately increased 30-299 Severely increased > OR = 300 The ADA recommends that at least two of three specimens collected within a 3-6 month period be abnormal before considering a patient to be within a diagnostic category. 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
--- OUTSIDE RECORDS SUMMARY | 2024-10-18 12:11 | XMS_ITS | Encounter Summary ---
Author Organization [facility] Address 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 Gender Identity Not on file Sexual Orientation Not on file documented as of this encounter Plan of Treatment Not on file documented as of this encounter Procedures Procedure Name Priority Date/Time Associated Diagnosis Comments COMPREHENSIVE METABOLIC PANEL Routine 10/13/2024 11:06 AM CDT documented in this encounter Results * COMPREHENSIVE METABOLIC PANEL (10/13/2024 11:06 AM CDT) Blood us Abstract Provider CHEMISTRY ORDERABLES Final Res ult documented in this encounter Visit Diagnoses Not on filedocumented in this encounter Care Teams Scientific Advisor Relationship Specialty Start Date End Date Sari Blankenship DO [address] [place] [address] PCP - General Family Practice 02/18/18 documented as of this encounter
[2024-10-18] MEDS: insulin glargine 100 units/1 mL 20 UNIT SUBCUT (12:23)
[2024-10-18 15:14] VITALS: BP 154/71; PULSE 101; RESP 18; TEMP 37.1; O2SAT 96
[2024-10-18 19:33] VITALS: BP 144/69; PULSE 108; RESP 19; TEMP 37.4; O2SAT 95
[2024-10-19] VITALS: BP 122/61; PULSE 94; RESP 17; TEMP 37.6; O2SAT 95
[2024-10-19 04:00] VITALS: BP 149/66; PULSE 101; RESP 19; TEMP 37.4; O2SAT 95
[2024-10-19] MEDS: oxybutynin chloride XL 5 MG TABLET 10 MG PO (05:09)
[2024-10-19 05:59] LABS: Hematocrit 36.1 % (36-47); Hemoglobin 12.00 g/dL (11.27-16.99); Mean Corpuscular HGB Conc 33.2 g/dL (30-55); Mean Corpuscular Hemoglobin 29.3 pg (27-33); Mean Corpuscular Volume 88.0 fl (85-98); Nucleated Red Blood Cells % 0 %; Platelet Count 219 10^3/cmm (157-399); Red Blood Count 4.10 10^6/uL (3.85-5.65); White Blood Count 10.93 10^3/uL (3.29-11.43)
[2024-10-19 06:22] LABS: Albumin Level 2.8 g/dL (3.5-5.2); Anion Gap 16.2 (5-19); Blood Urea Nitrogen 20 mg/dL (8-23); Calcium 8.7 mg/dL (8.5-10.5); Carbon Dioxide 21 mmol/L (22-29); Chloride 105 mmol/L (98-107); Creatinine Clr Calc Pharmacy 62.3101; Glucose 113 mg/dL (65-115); Magnesium 1.9 mg/dL (1.7-2.3); Potassium 4.2 mmol/L (3.5-5.1); Sodium 138 mmol/L (136-145)
[2024-10-19 07:34] VITALS: BP 137/74; PULSE 94; RESP 18; TEMP 37.2; O2SAT 95
[2024-10-19] MEDS: cefTRIAXone 1,000 mg SDV 1000 MG IVP (08:57)
[2024-10-19 11:48] VITALS: BP 132/72; PULSE 84; RESP 16; TEMP 37; O2SAT 96
--- NOTE | 2024-10-19 13:58 | PM.DCS ---
Discharge Providers Date of Admission: 10/17/24 15:11 Date of Discharge: October 19, 2024 Attending Provider at Admission: Lane Shields Attending Provider at Discharge: Ro Cantu MD Primary Care Provider: Sari Blankenship DO Diagnoses at Discharge Discharge Diagnosis (1) Altered mental status: Details from hospital stay: Alert and oriented x 3 Status: Resolved (2) Acute cystitis: Details from hospital stay: Urine culture grew E. coli. Discharged on cefdinir Status: Acute (3) Acute kidney injury: Details from hospital stay: Secondary to dehydration. Also was on benazepril and bumetanide. Resolved with IV fluids Status: Resolved (4) History of CVA (cerebrovascular accident): Details from hospital stay: Prior stroke from 20 years ago with residual right lower extremity weakness. Then with subacute stroke in September 2024 with left hemiparesis Status: Acute (5) Diabetes mellitus, type II: Details from hospital stay: Reduced her Lantus from 40 units to 20 units daily Status: Chronic (6) GERD (gastroesophageal reflux disease): Details from hospital stay: Omeprazole Status: Chronic (7) Hypertension: Details from hospital stay: Restarted benazepril Status: Chronic Qualifiers: Hypertension type: essential hypertension Qualified Code(s): I10 - Essential (primary) hypertension (8) Chronic diastolic CHF (congestive heart failure): Details from hospital stay: Euvolemic on exam. Bumetanide discontinued due to SHAKIR Status: Acute (9) Lumbar compression fracture: Status: Acute Reason for Visit Reason for Visit: AMS Brief History: This is a 69-year-old female with hypertension, type 2 diabetes mellitus, history of CVA, chronic diastolic CHF, hypothyroidism, GERD, and lumbar vertebral compression fracture who presented with confusion and visual hallucination. She was admitted to [facility] from October 09 to October 13, 2024 with an subacute CVA. She presented for that admission with left sided weakness and was found to have a subacute CVA. She had a stroke many years ago and had right-sided weakness from that. Per H&P she was able to use a motorized wheelchair and ambulate with a walker that admission. She had fallen earlier in September and sustained thoracal lumbar vertebral compression fractures and a coccygeal fracture. She was found to have a UTI and SHAKIR on presentation this admission. Hospital Course Hospital Course She was started on IV antibiotics for her UTI. Urine culture has grown E. coli. She was discharged on cefdinir which her culture is sensitive to. She was started on IV fluids for her SHAKIR at her creatinine is back to normal. Her bumetanide was discontinued. Her benazepril was held this admission but has been restarted. Her glucose has been at goal with decreased Lantus dose. She is currently on Lantus 20 units daily. She was taking Lantus 40 units previously. Monitor glucose and adjust insulin regimen as indicated. She was confused and had visual hallucinations on admission. This is resolved and she is now fully oriented. Her oxycodone was reduced to 5 mg every 8 hours as needed. Her tizanidine was discontinued. She is still on baclofen. She has been accepted for rehab beds SNF. Physical Exam Narrative: GEN: Alert, no acute distress Neuro: Alert, oriented x 3, left hemiparesis (flaccid), right lower extremity 3/5. Sensory loss on left upper and lower extremities HEENT: Normocephalic, atraumatic, PERRLA Neck: Supple Cardio: S1, S2, regular rate and rhythm, no murmur Respiratory: No respiratory distress, clear to auscultation bilaterally Abdomen: Soft, nontender, nondistended, normoactive bowel sounds Extremity, no edema Skin: Bruising both forearms, superficial ulcer distal left lower leg Discharge Data Studies Completed and Pending Completed Studies During Hospitalization Category Date Time Status CT head wo con* [id number] Stat Cat Scan 10/17/24 11:[address] kidney stone [id number] Routine Cat Scan 10/17/24 17:01 Completed XR chest 1V portable [id number] Stat Exams 10/17/24 11:49 Completed Pending at discharge Category Date Time Status CBC Auto Diff [Complete Blood Count w/Auto] AM LABS Lab 10/20/24 04:00 Ordered CBC Auto Diff [Complete Blood Count w/Auto] AM LABS Lab 10/21/24 04:00 Ordered Magnesium AM LABS Lab 10/20/24 04:00 Ordered Magnesium AM LABS Lab 10/21/24 04:00 Ordered Renal Function Panel AM LABS Lab 10/20/24 04:00 Ordered Renal Function Panel AM LABS Lab 10/21/24 04:00 Ordered Radiology Impressions Chest X-Ray 10/17/24 11:49 IMPRESSION: Findings in the left lower lung as unknown chronicity, nonspecific. Head CT 10/17/24 11:49 IMPRESSION: 1. No evidence of acute intracranial process. 2. Chronic infarcts. [id number] small vessel disease. Abdomen/Pelvis CT 10/17/24 17:01 IMPRESSION: 1. No evidence of obstructive nephropathy. 2. Mild bilateral perinephric fat stranding is nonspecific and may be related to senescent changes, though underlying infection/inflammation is difficult to entirely exclude. Correlate with physical exam and laboratory findings. 3. Subcutaneous fat stranding along the intergluteal cleft may represent mild inflammation/edema. Correlate with physical exam findings. 4. Additional ancillary findings as above. Laboratory Results WBC 10.93 10^3/uL (3.29-11.43) 10/19/24 05:03 RBC 4.10 10^6/uL (3.85-5.65) 10/19/24 05:03 Hgb 12.00 g/dL (11.27-16.99) 10/19/24 05:03 Hct 36.1 % (36-47) 10/19/24 05:03 MCV 88.0 fl (85-98) 10/19/24 05:03 MCH 29.3 pg (27-33) 10/19/24 05:03 MCHC 33.2 g/dL (30-55) 10/19/24 05:03 RDW 14.0 % (12.1-15.1) 10/19/24 05:03 Plt Count 219 10^3/cmm (157-399) 10/19/24 05:03 MPV 12.9 fL (7.4-10.4) H 10/19/24 05:03 Neut % (Auto) 64.8 % 10/19/24 05:03 Lymph % (Auto) 19.9 % 10/19/24 05:03 [place] % (Auto) 14.1 % 10/19/24 05:03 Eos % (Auto) 0.4 % 10/19/24 05:03 Baso % (Auto) 0.3 % 10/19/24 05:03 Neut # (Auto) 7.09 10^3/uL (1.8-7.7) 10/19/24 05:03 Lymph # (Auto) 2.2 10^3/uL (0.8-4.8) 10/19/24 05:03 [place] # (Auto) 1.5 10^3/uL (0.2-0.9) H 10/19/24 05:03 Eos # (Auto) 0.0 10^3/uL (0.0-0.8) 10/19/24 05:03 Baso # (Auto) 0.0 10^3/uL (0.0-0.1) 10/19/24 05:03 Nucleated RBC % (auto) 0 % 10/19/24 05:03 Nucleated RBCs # 0.0 /100WBC 10/19/24 05:03 PT 15.00 SECONDS (12.1-14.9) H 10/17/24 12:01 INR 1.10 (0.8-1.2) 10/17/24 12:01 Sodium 138 mmol/L (136-145) 10/19/24 05:03 Potassium 4.2 mmol/L (3.5-5.1) 10/19/24 05:03 Chloride 105 mmol/L (98-107) 10/19/24 05:03 Carbon Dioxide 21 mmol/L (22-29) L 10/19/24 05:03 Anion Gap 16.2 (5-19) 10/19/24 05:03 BUN 20 mg/dL (8-23) 10/19/24 05:03 Creatinine 0.8 mg/dL (0.5-0.9) 10/19/24 05:03 GFR Calculation 71.1 mL/min (90-130) L 10/19/24 05:03 Glucose 113 mg/dL (65-115) 10/19/24 05:03 POC Glucose 119 mg/dL (70-110) H 10/19/24 11:50 Calculated Osmolality 286 mOsm/kg (285-295) 10/18/24 04:26 Calcium 8.7 mg/dL (8.5-10.5) 10/19/24 05:03 Phosphorus 2.5 mg/dL (2.5-4.5) 10/19/24 05:03 Magnesium 1.9 mg/dL (1.7-2.3) 10/19/24 05:03 Total Bilirubin 0.8 mg/dL (0.15-1.2) 10/18/24 04:26 AST 103 U/L (0-32) H 10/18/24 04:26 ALT 72 U/L (0-33) H 10/18/24 04:26 Alkaline Phosphatase 160 U/L (35-105) H 10/18/24 04:26 Total Protein 5.8 g/dL (6.6-8.7) L 10/18/24 04:26 Albumin 2.8 g/dL (3.5-5.2) L 10/19/24 05:03 Globulin 3.0 g/dL (1.3-4.6) 10/18/24 04:26 Urine Color [place] (Yellow) A 10/17/24 13:15 Urine Appearance Turbid (CLEAR) A 10/17/24 13:15 Urine pH 6.5 (5-7) 10/17/24 13:15 Ur Specific [place] 1.019 (1.005-1.030) 10/17/24 13:15 Urine Protein 1+ (Negative) A 10/17/24 13:15 Urine Glucose (UA) Negative (Normal) 10/17/24 13:15 Urine Ketones Trace (Negative) 10/17/24 13:15 Urine Blood 2+ (Negative) A 10/17/24 13:15 Urine Nitrate Positive (Negative) A 10/17/24 13:15 Urine Bilirubin Negative (Negative) 10/17/24 13:15 Urine Urobilinogen 1.0 mg/dL (Negative) 10/17/24 13:15 Ur Leukocyte Esterase 3+ (Negative) A 10/17/24 13:15 Urine RBC 0-2 /hpf (0-2) 10/17/24 13:15 Urine WBC >100 /hpf (0-5) H 10/17/24 13:15 Ur Squamous Epith Cells 0-5 /hpf (0-5) 10/17/24 13:15 Amorphous Sediment Not Reportable 10/17/24 13:15 Urine Bacteria Exceeds /hpf (NONE) 10/17/24 13:15 Hyaline Casts 9.54 /lpf 10/17/24 13:15 Vitals Last Vital Signs Temp 98.6 F 10/19/24 11:48 Pulse 84 10/19/24 11:48 Resp 16 10/19/24 11:48 BP 132/72 10/19/24 11:48 Pulse Ox 96 10/19/24 11:48 O2 Del Method Room Air 10/19/24 11:48 Discharge Plan Discharge Patient Disposition: Xfer SNF Condition: Stable Prescriptions: New insulin lispro [Humalog U-100 Insulin] 100 unit/mL Solution 0 sliding scale dose SUBCUT WM&BEDTIME Qty: 100 0RF cefdinir 300 mg capsule 300 mg PO BID 5 Days Qty: 10 0RF Continued lidocaine [Lidoderm] 5 % adhesive patch,medicated 1 patch TOPICAL DAILY Rx Instructions: 12 HOURS ON THEN 12 HOURS OFF oxybutynin chloride 10 mg tablet extended release 24hr 10 mg PO QAM esomeprazole magnesium [Nexium] 40 mg capsule,delayed release(DR/EC) 40 mg PO DAILY montelukast 10 mg tablet 10 mg PO DAILY PRN (Reason: allergies) benazepril 20 mg Tablet 20 mg PO DAILY levothyroxine 50 mcg tablet 50 mcg PO DAILY Coricidin HBP Cold and Flu 2-325 mg Tablet 2 tab PO Q6H PRN (Reason: Flu Symptoms) diclofenac sodium 1 % gel 2 g TOPICAL QID PRN (Reason: Pain) Tradjenta 5 mg tablet 5 mg PO DAILY fluticasone propionate 50 mcg/actuation spray,suspension 2 spray INTRANASAL DAILY naloxone [Narcan] 4 mg/actuation [place],Non-Aerosol 4 mg INTRANASAL Q3M PRN (Reason: OVERDOSE) Rx Instructions: spray 1 dose into ONE nostril; alternate nostrils w each dose until help arrives Trulicity 4.5 mg/0.5 mL pen injector 4.5 mg SUBCUT Q7D Rx Instructions: Wednesday aspirin 81 mg Tablet,Delayed Release (Dr/Ec) 81 mg PO DAILY Qty: 30 0RF atorvastatin 40 mg Tablet 40 mg PO BEDTIME 30 Days Qty: 30 0RF baclofen 10 mg Tablet 10 mg PO TID PRN (Reason: Pain) 30 Days Qty: 90 0RF ondansetron HCl 4 mg tablet 4 mg PO Q8H PRN (Reason: Nausea And Vomiting) Changed oxycodone 10 mg tablet 5 mg PO Q8H PRN (Reason: Pain) Qty: 30 0RF insulin degludec [Tresiba FlexTouch U-200] 200 unit/mL (3 mL) insulin pen 20 unit SUBCUT QAM Qty: 100 0RF Discontinued tizanidine 4 mg Tablet 4 mg PO QID PRN (Reason: Muscle Pain) bumetanide 1 mg tablet 1 mg PO DAILY Discharge Orders: Discharge Order (Routine); Ordered 10/19/24 Ordered By: Ro Cantu Referrals: [facility] [Outside] Sari Blankenship DO [Primary Care Provider, [facility]] Discharge Diet: Diabetic Discharge Activity: As per PT/OT instructions Patient Instructions: Cefdinir (By mouth) (Omnicef), Acute Kidney Injury (DC), Urinary Tract Infection in Women (DC), Altered Mental Status (ED), Opioid Safety, Patient Portal & Heide Instructions Discharge Attestations Time Spent in Discharge Care*: greater than 30 min Quality Metrics Clinical Quality Measures [ No reported AMI, CVA or VTE this stay] Coding Level of Care Code 65169 Diagnoses Altered mental status R41.82 Acute cystitis N30.00 Acute kidney injury N17.9 History of CVA (cerebrovascular accident) Z86.73 Diabetes mellitus, type II E11.9 GERD (gastroesophageal reflux disease) K21.9 Essential hypertension I10 Hypertension type: essential hypertension Chronic diastolic CHF (congestive heart failure) I50.32 Lumbar compression fracture S32.000A
--- NOTE | 2024-10-19 15:27 | PC.NURSE ---
attempted to call report to [facility] multiple times, unable to take report.
== END 2024-10-19 15:35 | disposition skilled nursing facility (03) ==
LOC: ER 14:17 → MEDSURG 17:04
PROVIDERS: Admitting Provider Internal Medicine; Emergency Provider Emergency Medicine; PCP Family Medicine; Visit Provider Student in an Organized Health Care Education/Training Program
DX: R41.82 Altered mental status, unspecified (principal); N30.00 Acute cystitis without hematuria; I13.0 Hypertensive heart and chronic kidney disease with heart failure and stage 1 through stage 4 chronic kidney disease, or unspecified chronic kidney disease; N18.9 Chronic kidney disease, unspecified; S32.000A Wedge compression fracture of unspecified lumbar vertebra, initial encounter for closed fracture; W18.30XA Fall on same level, unspecified, initial encounter; B96.20 Unspecified Escherichia coli [E. coli] as the cause of diseases classified elsewhere; E11.9 Type 2 diabetes mellitus without complications; K21.9 Gastro-esophageal reflux disease without esophagitis; I50.32 Chronic diastolic (congestive) heart failure; Z79.82 Long term (current) use of aspirin; Z79.4 Long term (current) use of insulin; E11.22 Type 2 diabetes mellitus with diabetic chronic kidney disease; I69.351 Hemiplegia and hemiparesis f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; N17.9 Acute kidney failure, unspecified
CPT/HCPCS: 36415; 36416; 70450; 71045; 74176; 80053; 80069; 81001; 82962; 83735; 85025; 85610; 87077; 87086; 87186; 93005; 96372; 96374; 96376; 97110; 97162; 97530; 99285; G0378; J0696; J1650; J1815; J7030; J7120; J9999